=== PATIENT | male | born 1930 | race Hispanic/Latino ===

== ENCOUNTER 2017-05-13 07:44 | Emergency (ER) | payer MEDICARE ==
[2017-05-13 07:45] VITALS: BMI 26.5
[2017-05-13 09:06] VITALS: BP 150/65; PULSE 67; RESP 18; TEMP 97.8; O2SAT 98
--- NOTE | 2017-05-13 09:21 | ED PDOC ---
Arrival/HPI - General Chief Complaint: Lower Extremity Problem/Injury Time Seen by Provider: 05/13/17 07:54 - History of Present Illness Narrative History of Present Illness (Text): 05/13/17 09:18 86yo male with hx of b/l foot neuropathy with 1 day duration pain over the top of his R. foot. pt states pain quality similar to his previous neuropathy symptoms. Denies any trauma or injury. Denies loss of sensation or numbness. States pain feels like burning. No f/c, no other complaints. Past Medical History - Provider Review Nursing Documentation Reviewed: Yes - Infectious Disease Hx of Infectious Diseases: None - Tetanus Immunization Tetanus Immunization: Unknown - Cardiac Hx Cardiac Disorders: Yes Hx Angina: No Hx Cardiac Arrhythmia: No Hx Circulatory Problems: No Hx Congestive Heart Failure: No Hx Heart Murmur: No Hx Heart Transplant: No Hx Hypertension: Yes Hx Internal Defibrillator: No Hx Mitral Valve Prolapse: No Hx Pacemaker: No Hx Peripheral Edema: No Hx Peripheral Vascular Disease: No - Pulmonary Hx Respiratory Disorders: No - Neurological Hx Neurological Disorder: Yes (neuropathy feet legs arms hands) - HEENT Hx HEENT Disorder: Yes (eyeglasses) Hx Cataracts: Yes (b/l sx) - Renal Hx Renal Disorder: No - Endocrine/Metabolic Hx Endocrine Disorders: No - Hematological/Oncological Hx Blood Disorders: Yes (elevated wbc) Other/Comment: thrombocytopenia with pulmonary nodules, tx by dr bautista around 7 yrs as per pt - Integumentary Hx Dermatological Disorder: Yes Other/Comment: growth to r ear - Musculoskeletal/Rheumatological Hx Musculoskeletal Disorders: No Hx Falls: No - Gastrointestinal Hx Gastrointestinal Disorders: Yes Hx Diverticulitis: (pt denies) Hx Gastroesophageal Reflux: Yes - Genitourinary/Gynecological Hx Genitourinary Disorders: No - Psychiatric Hx Psychophysiologic Disorder: No Hx Depression: No Hx Emotional Abuse: No Hx Physical Abuse: No Hx Substance Use: No - Surgical History Hx Appendectomy: Yes Hx Cardiac Catheterization: Yes (08/02/2013 dr hawley) Hx Coronary Stent: No (pt denies) - Anesthesia Hx Anesthesia: Yes Hx Anesthesia Reactions: No Hx Malignant Hyperthermia: No - Suicidal Assessment Feels Threatened In Home Enviroment: No Family/Social History Family/Social History: Unknown Family HX Smoking Status: Never Smoked Hx Alcohol Use: No Hx Substance Use: No Hx Substance Use Treatment: No Allergies/Home Meds Allergies/Adverse Reactions: Allergies No Known Allergies Allergy (Verified 05/13/17 07:52) Home Medications: Home Meds Medication Instructions Recorded Confirmed Aspirin [Aspir 81] 81 mg PO DAILY 10/10/13 05/13/17 Enalapril Maleate 10 mg PO DAILY 10/10/13 05/13/17 Atorvastatin [Lipitor] 20 mg PO DAILY 06/21/14 05/13/17 Cholecalciferol (Vitamin D3) 50,000 iu PO .Friday04/17/16 05/13/17 [Vitamin D3] Folic Acid 1 mg PO DAILY 04/17/16 05/13/17 Gabapentin [Neurontin] 1,200 mg PO TID 04/17/16 05/13/17 Hydroxyurea [Hydrea] 500 mg PO DAILY 04/17/16 05/13/17 [place]-3 Fatty Acids/Fish Oil [Fish 1 each PO DAILY 04/17/16 05/13/17 Oil 1,000 mg Softgel] Omeprazole 40 mg PO DAILY 04/17/16 05/13/17 Review of Systems - Physician Review All systems were reviewed & negative as marked: Yes - Review of Systems Respiratory: absent: SOB, Cough Cardiovascular: absent: Chest Pain, Palpitations Gastrointestinal: absent: Abdominal Pain, Nausea, Vomiting Musculoskeletal: Other (foot pain, R.) Physical Exam Vital Signs Reviewed: Yes Vital Signs Temp Pulse Resp BP Pulse Ox 05/13/17 09:05 97.8 F 67 18 150/65 98 05/13/17 07:48 97.6 F 71 16 132/75 96 Temperature: Afebrile Blood Pressure: Normal Pulse: Regular Respiratory Rate: Normal Appearance: Positive for: Well-Appearing Pain Distress: None Mental Status: Positive for: Alert and Oriented X 3 - Systems Exam Lower Extremity: Present: Normal Inspection (R. foot), NORMAL PULSES, Normal ROM , Neurovascularly Intact, Capillary Refill < 2 s, Other. No: Edema, CALF TENDERNESS, Cyanosis, Natalia's Sign, Swelling, Erythema, Deformity, Temperature Abnormalties Neurological: Present: GCS=15, CN II-XII Intact, Speech Normal, Gait Normal, Other (no focal neurological deficits) Medical Decision Making ED Course and Treatment: 05/13/17 09:23 86yo male with hx of neuropathy, with R. foot pain pt with steady gait on exam, pt has +pulses, no warmth/erythema/streaking, no swelling dw US tech, states no DVT pt states he has a f/u appt with Dr. José pt states he feels comfortable being dc'd home with outpatient f/u Pt states he understands to return to the ER right away for new or worsening symptoms or for inability to f/u with PMD or specialist as instructed. Patient states that he fully agrees with and understands discharge instructions. States that he agrees with the plan and disposition. Verbalized and repeated discharge instructions and plan. I have given the patient opportunity to ask any additional questions. - RAD Interpretation Radiology Orders: 05/13/17 08:15 DUPLEX LOWER EXTRM VEIN RIGHT [US] Stat Disposition/Present on Arrival - Present on Arrival Any Indicators Present on Arrival: No History of DVT/PE: No History of Uncontrolled Diabetes: No Urinary Catheter: No History of Decub. Ulcer: No History Surgical Site Infection Following: None - Disposition Have Diagnosis and Disposition been Completed?: Yes Diagnosis: Foot pain Disposition: HOME/ ROUTINE Disposition Time: 09:28 Patient Plan: Discharge Condition: GOOD Discharge Instructions (ExitCare): Arthralgia (ED) Additional Instructions: PLEASE RETURN TO THE EMERGENCY DEPARTMENT FOR NEW OR WORSENING SYMPTOMS. RETURN RIGHT AWAY IF YOU CANNOT FOLLOW UP WITH YOUR PRIMARY CARE DOCTOR, CLINIC, OR SPECIALIST IN 1-2 DAYS. Referrals: Jak José MD [Staff Provider] - Follow up with primary Forms: [employer] ([place])
--- NOTE | 2017-05-13 18:32 | US ---
PROCEDURE: Right lower extremity venous US HISTORY: Leg pain and swelling. Evaluate for DVT. PHYSICIAN(S): Aramis Richardson M.D. TECHNIQUE: Duplex sonography and color-flow Doppler with graded compression were used to evaluate the deep venous system of the right lower extremity. FINDINGS: The visualized deep venous system of the right lower extremity is sonographically normal and compressible. Normal waveforms and augmentation are seen. There is no sonographic evidence for deep venous thrombosis in the visualized segments of the right lower extremity. IMPRESSION: 1. No sonographic evidence for deep venous thrombosis in the visualized segments of the right lower extremity.
== END 2017-05-13 09:44 | disposition home or self-care (01) ==
LOC: ED 07:44
DX: M79.671 Pain in right foot (principal); I10 Essential (primary) hypertension; G62.9 Polyneuropathy, unspecified

== ENCOUNTER 2017-05-31 06:08 | Emergency (ER) | payer MEDICARE ==
[2017-05-31 06:08] VITALS: BMI 26.5
[2017-05-31 07:06] LABS: ALB/GLOB RATIO 1.5 (1.1-1.8); ALKALINE PHOSPHATASE 57 U/L (38-133); ALT/SGPT 44 U/L (7-56); AMYLASE 64 U/L (35-125); AST/SGOT 64 U/L (15-59); BILIRUBIN,TOTAL 0.3 mg/dL (0.2-1.3); BLOOD UREA NITROGEN 28 mg/dL (7-21); CALCIUM 8.9 mg/dL (8.4-10.5); CARBON DIOXIDE 26 mmol/L (21-33); CHLORIDE 107 mmol/L (98-107); GFR AFRICAN-AMERICAN 58; GLUCOSE,RANDOM 101 mg/dL (70-110); LIPASE 58 U/L (23-300); POTASSIUM 4.4 mmol/L (3.6-5.0); SODIUM 143 mmol/L (132-148); TOTAL PROTEIN 6.9 g/dL (5.8-8.3)
[2017-05-31 07:07] LABS: HEMATOCRIT 41.1 % (42.0-52.0); WHITE BLOOD COUNT 7.2 10^3/ul (4.5-11.0)
[2017-05-31 07:08] LABS: GRAN % 74.3 % (50.0-68.0); MEAN CELL VOLUME 107.6 fl (80.0-105.0); MEAN CORPUSCULAR HEMOGLOBIN 35.3 pg (25.0-35.0); MEAN CORPUSCULAR HGB CONC 32.8 g/dl (31.0-37.0); MEAN PLATELET VOLUME 8.9 fl (7.0-11.0); RED CELL DISTRIBUTION WIDTH 13.2 % (11.5-14.5)
[2017-05-31 07:09] LABS: BASO # 0.05 K/mm3 (0.0-2.0); BASO % 0.7 % (0.0-3.0); EOS # 0.2 (0.0-0.7); EOS % 2.4 % (1.5-5.0); GRAN # 5.36 (1.4-6.5); LYMPH # 0.9 (1.2-3.4); LYMPH % 12.2 % (22.0-35.0); MONO # 0.8 (0.1-0.6); MONO % 10.4 % (1.0-6.0)
[2017-05-31 07:19] LABS: TROPONIN I < 0.01 ng/mL
[2017-05-31] MEDS ORDERED: Famotidine 20mg/50ml 20 MG/50 ML BAG IVPB STA (07:23)
--- NOTE | 2017-05-31 07:26 | ED PDOC ---
Arrival/HPI - General Chief Complaint: Abdominal Pain Time Seen by Provider: 05/31/17 07:11 Historian: Patient - History of Present Illness Narrative History of Present Illness (Text): 05/31/17 07:22 A 86 year old male, whose past medical history includes hypertension and neuropathy, presents to the emergency department complaining of lower abdominal pain since yesterday evening. Patient describes the pain as a burning sensation and denies any radiating pain. He reports his last bowel movement was yesterday afternoon. Patient denies any fever, chills, nausea, vomiting, diarrhea, urinary symptoms, hematochezia, back pain, chest pain, shortness of breath or any other complaints. No history of abdominal surgeries. Patient is currently seeing a nurse practitioner in Dr. Rayo's office. Time/Duration: Other (Yesterday evening) Symptom Course: Unchanged Quality: Other Context: Home Past Medical History - Provider Review Nursing Documentation Reviewed: Yes - Infectious Disease Hx of Infectious Diseases: None - Tetanus Immunization Tetanus Immunization: Unknown - Cardiac Hx Cardiac Disorders: Yes Hx Angina: No Hx Cardiac Arrhythmia: No Hx Circulatory Problems: No Hx Congestive Heart Failure: No Hx Heart Murmur: No Hx Heart Transplant: No Hx Hypertension: Yes Hx Internal Defibrillator: No Hx Mitral Valve Prolapse: No Hx Pacemaker: No Hx Peripheral Edema: No Hx Peripheral Vascular Disease: No - Pulmonary Hx Respiratory Disorders: No - Neurological Hx Neurological Disorder: Yes (neuropathy feet legs arms hands) - HEENT Hx HEENT Disorder: Yes (eyeglasses) Hx Cataracts: Yes (b/l sx) - Renal Hx Renal Disorder: No - Endocrine/Metabolic Hx Endocrine Disorders: No - Hematological/Oncological Hx Blood Disorders: Yes (elevated wbc) Other/Comment: thrombocytopenia with pulmonary nodules, tx by dr bautista around 7 yrs as per pt - Integumentary Hx Dermatological Disorder: Yes Other/Comment: growth to r ear - Musculoskeletal/Rheumatological Hx Musculoskeletal Disorders: No Hx Falls: No - Gastrointestinal Hx Gastrointestinal Disorders: Yes Hx Diverticulitis: (pt denies) Hx Gastroesophageal Reflux: Yes - Genitourinary/Gynecological Hx Genitourinary Disorders: No - Psychiatric Hx Psychophysiologic Disorder: No Hx Depression: No Hx Emotional Abuse: No Hx Physical Abuse: No Hx Substance Use: No - Surgical History Hx Appendectomy: Yes Hx Cardiac Catheterization: Yes (08/02/2013 dr hawley) Hx Coronary Stent: No (pt denies) - Anesthesia Hx Anesthesia: Yes Hx Anesthesia Reactions: No Hx Malignant Hyperthermia: No - Suicidal Assessment Feels Threatened In Home Enviroment: No Family/Social History - Physician Review Nursing Documentation Reviewed: Yes Family/Social History: No Known Family HX Smoking Status: Never Smoked Hx Alcohol Use: No Hx Substance Use: No Hx Substance Use Treatment: No Allergies/Home Meds Allergies/Adverse Reactions: Allergies No Known Allergies Allergy (Verified 05/13/17 07:52) Home Medications: Home Meds Medication Instructions Recorded Confirmed Aspirin [Aspir 81] 81 mg PO DAILY 10/10/13 05/31/17 Enalapril Maleate 5 mg PO DAILY 10/10/13 05/31/17 Atorvastatin [Lipitor] 20 mg PO DAILY 06/21/14 05/31/17 Cholecalciferol (Vitamin D3) 50,000 iu PO .Friday04/17/16 05/31/17 [Vitamin D3] Folic Acid 1 mg PO DAILY 04/17/16 05/31/17 Gabapentin [Neurontin] 1,200 mg PO TID 04/17/16 05/31/17 Hydroxyurea [Hydrea] 500 mg PO DAILY 04/17/16 05/31/17 [place]-3 Fatty Acids/Fish Oil [Fish 1 each PO DAILY 04/17/16 05/31/17 Oil 1,000 mg Softgel] Omeprazole 40 mg PO DAILY 04/17/16 05/31/17 Review of Systems - Physician Review All systems were reviewed & negative as marked: Yes - Review of Systems Constitutional: absent: Fevers, Night Sweats Respiratory: absent: SOB Cardiovascular: absent: Chest Pain Gastrointestinal: Abdominal Pain (lower). absent: Diarrhea, Nausea, Vomiting, Hematochezia Genitourinary Male: absent: Dysuria, Frequency, Hematuria, Urinary Output Changes Musculoskeletal: absent: Back Pain Physical Exam Vital Signs Reviewed: Yes Vital Signs Temp Pulse Resp BP Pulse Ox 05/31/17 09:49 98.1 F 81 20 139/62 97 05/31/17 09:22 70 16 158/88 H 96 05/31/17 07:29 70 18 134/49 L 95 05/31/17 06:33 97.5 F L 81 20 163/83 H 98 Temperature: Afebrile Blood Pressure: Hypertensive Pulse: Regular Respiratory Rate: Normal Appearance: Positive for: Well-Appearing, Non-Toxic, Comfortable Pain Distress: None Mental Status: Positive for: Alert and Oriented X 3 - Systems Exam Head: Present: Atraumatic, Normocephalic Pupils: Present: PERRL Extroacular Muscles: Present: EOMI Conjunctiva: Present: Normal Mouth: Present: Moist Mucous Membranes Pharnyx: No: ERYTHEMA, EXUDATE, TONSILS ENLARGED Neck: Present: Normal Range of Motion Respiratory/Chest: Present: Clear to Auscultation, Good Air Exchange. No: Respiratory Distress, Accessory Muscle Use Cardiovascular: Present: Regular Rate and Rhythm, Normal S1, S2. No: Murmurs Abdomen: Present: Tenderness (Lower abdominal tenderness to palpation), Normal Bowel Sounds, Guarding. No: Distention, Peritoneal Signs, Rebound Back: Present: Normal Inspection Upper Extremity: Present: Normal Inspection. No: Cyanosis, Edema Lower Extremity: Present: Normal Inspection. No: Edema Neurological: Present: GCS=15, CN II-XII Intact, Speech Normal Skin: Present: Warm, Dry, Normal Color. No: Rashes Psychiatric: Present: Alert, Oriented x 3, Normal Insight, Normal Concentration Medical Decision Making ED Course and Treatment: 05/31/17 07:22 Impression: A 86 year old male with lower abdominal pain. On exam, tenderness to palpation with guarding. Differential Diagnosis included but are not limited to: Diverticulitis vs. Colitis vs. Appendicitis Plan: -- Abdomen and pelvis CT -- EKG -- Labs -- Urinalysis -- Toradol and Pepcid -- Reassess and disposition Progress Notes: EKG shows NSR at [address]-segment elevations, normal intervals, normal axis. Interpreted by me. Report Date : 05/31/2017 09:14:15 PROCEDURE: CT Abdomen and Pelvis with contrast Dictator : Aramis See MD IMPRESSION: No acute abnormality of bowel. Thickening of the gastric wall is most likely secondary to lack of distension. Please correlate for possible gastritis. No other acute abnormality. 05/31/17 09:37 On re-evaluation, patient feels better and is in no acute distress. On exam, no abdominal tenderness. Patient is tolerating PO intake. I have discussed the results and plan with the patient, who expresses understanding. Patient in agreement with plan to be discharged home. Patient is stable for discharge. Patient was instructed to follow up with physician or return if symptoms worsen or new concerning symptoms arise. - Lab Interpretations Lab Results: 05/31/17 06:40 05/31/17 06:40 Lab Results 05/31/17 07:36: Urine Color Yellow, Urine Appearance Clear, Urine pH 6.0, Ur Specific [place] 1.025, Urine Protein Trace H, Urine Glucose (UA) Negative, Urine Ketones Negative, Urine Blood Trace-lysed H, Urine Nitrate Negative, Urine Bilirubin Negative, Urine Urobilinogen 0.2, Ur Leukocyte Esterase Negative , Urine RBC 0 - 2, Urine WBC 0 - 2, Ur Epithelial Cells 0 - 2, Urine Bacteria Few 05/31/17 06:40: WBC 7.2, RBC 3.82, Hgb 13.5 L, Hct 41.1 L, MCV 107.6 H, MCH 35.3 H, MCHC 32.8, RDW 13.2, Plt Count 332, MPV 8.9, Gran % 74.3 H, Lymph % ( Auto) 12.2 L, [place] % (Auto) 10.4 H, Eos % (Auto) 2.4, Baso % (Auto) 0.7, Gran # 5.36, Lymph # 0.9 L, [place] # 0.8 H, Eos # 0.2, Baso # 0.05 05/31/17 06:40: Sodium 143, Potassium 4.4, Chloride 107, Carbon Dioxide 26, Anion Gap 14, BUN 28 H, Creatinine 1.4, Est GFR ( Amer) 58, Est GFR (Non- Af Amer) 48, Random Glucose 101, Calcium 8.9, Total Bilirubin 0.3, AST 64 H, ALT 44, Alkaline Phosphatase 57, Lactate Dehydrogenase 711 H, Total Creatine Kinase 626 H, CK-MB (CK-2) 16.2 H, CK-MB (CK-2) % 2.6, Troponin I < 0.01 D, Total Protein 6.9, Albumin 4.1, Globulin 2.8, Albumin/Globulin Ratio 1.5, Amylase 64, Lipase 58 I have reviewed the lab results: Yes - RAD Interpretation Radiology Orders: 05/31/17 07:22 ABD & PELVIS IV CONTRAST ONLY [CT] Stat - Medication Orders Current Medication Orders: Discontinued Medications Famotidine (Pepcid 20mg/50ml Premix) 20 mg in 50 mls @ 100 mls/hr IVPB STAT STA Stop: 05/31/17 07:52 Last Admin: 05/31/17 07:40 Dose: 100 mls/hr Sodium Chloride (Sodium Chloride 0.9%) 500 mls @ 999 mls/hr IV .Q31M STA Stop: 05/31/17 08:02 Last Admin: 05/31/17 07:41 Dose: 999 mls/hr Ketorolac Tromethamine (Toradol) 30 mg IVP STAT STA Stop: 05/31/17 07:24 Last Admin: 05/31/17 07:41 Dose: 30 mg - Scribe Statement The provider has reviewed the documentation as recorded by the Parris Fernández Provider Scribe Attestation: All medical record entries made by the Scribe were at my direction and personally dictated by me. I have reviewed the chart and agree that the record accurately reflects my personal performance of the history, physical exam, medical decision making, and the department course for this patient. I have also personally directed, reviewed, and agree with the discharge instructions and disposition. Disposition/Present on Arrival - Present on Arrival Any Indicators Present on Arrival: No History of DVT/PE: No History of Uncontrolled Diabetes: No Urinary Catheter: No History of Decub. Ulcer: No History Surgical Site Infection Following: None - Disposition Have Diagnosis and Disposition been Completed?: Yes Diagnosis: Abdominal pain Disposition: HOME/ ROUTINE Disposition Time: 09:37 Patient Plan: Discharge Condition: IMPROVED Discharge Instructions (ExitCare): Acute Abdominal Pain (ED) Additional Instructions: Mr Culver, thank you for letting us take care of you today. Your provider was Dr. Novoa. You were treated for Abdominal Pain. The emergency medical care you received today was directed at your acute symptoms. If you were prescribed any medication, please fill it and take as directed. It may take several days for your symptoms to resolve. Return to the Emergency Department if your symptoms worsen, do not improve, or if you have any other problems. Please contact your doctor or call one of the physicians/clinics you have been referred to that are listed on the Patient Visit Information form that is included in your discharge packet. Bring any paperwork you were given at discharge with you along with any medications you are taking to your follow up visit. Our treatment cannot replace ongoing medical care by a primary care provider (PCP) outside of the emergency department. Thank you for allowing the [facility] team to be part of your care today. If you had an X-Ray or CT scan: A Radiologist will review the ED reading if any change in treatment is needed we will contact you. If you had a blood, urine, or wound culture: It will take several days for the results, if any change in treatment is needed we will contact you. If you had an STI test: It will take 48 hours for the results. Please call after 1 week if you have not heard back. Prescriptions: Ibuprofen [Motrin] 600 mg PO Q6 PRN #30 tab PRN Reason: Pain, Moderate (4-7) Ranitidine HCl [Zantac] 150 mg PO BID PRN #30 tablet PRN Reason: Pain, Mild (1-3) Referrals: Girma GARCIA,Claude Owens MD [Primary Care Provider] - Follow up with primary Forms: [employer] ([place])
[2017-05-31] MEDS ORDERED: Sodium Chloride 0.9% 500 ML IV STA (07:32)
[2017-05-31 07:43] LABS: URINE BILIRUBIN NEGATIVE (NEGATIVE); URINE BLOOD TRACE-LYSED (NEGATIVE); URINE GLUCOSE (UA) NEGATIVE (NEGATIVE); URINE KETONE NEGATIVE (NEGATIVE); URINE LEUKOCYTE ESTERASE NEGATIVE Leu/uL (NEGATIVE); URINE PROTEIN TRACE mg/dL (<30 mg/dL); URINE UROBILINOGEN 0.2 E.U./dL (<1 E.U./dL)
[2017-05-31 07:50] LABS: URINE APPEARANCE CLEAR (CLEAR); URINE COLOR YELLOW (YELLOW)
[2017-05-31 07:58] LABS: URINE BACTERIA FEW (NEG); URINE EPITHELIAL CELLS 0 - 2 /hpf (0-5); URINE RBC 0 - 2 /hpf (0-2); URINE WBC 0 - 2 /hpf (0-6)
[2017-05-31] MEDS ORDERED: Iohexol 350 MG/100 ML VIAL ONE (08:00)
--- NOTE | 2017-05-31 09:15 | CT ---
PROCEDURE: CT Abdomen and Pelvis with contrast HISTORY: diverticulitis vs appy COMPARISON: 04/20/2015 TECHNIQUE: Contrast dose: 100 mL Omnipaque 350 Radiation dose: Total exam DLP = 552.03 mGy-cm. This CT exam was performed using one or more of the following dose reduction techniques: Automated exposure control, adjustment of the mA and/or kV according to patient size, and/or use of iterative reconstruction technique. FINDINGS: LOWER THORAX: Unremarkable. LIVER: Unremarkable. No gross lesion or ductal dilatation. GALLBLADDER AND BILE DUCTS: Unremarkable. PANCREAS: Unremarkable. No gross lesion or ductal dilatation. SPLEEN: Unremarkable. ADRENALS: Unremarkable. No mass. KIDNEYS AND URETERS: Multiple bilateral renal cysts unchanged from prior examination. Largest cyst is in the upper pole left kidney, 6.4 cm. This measures 8 Hounsfield units. Largest right renal cyst is an exophytic lower pole cyst measuring 2.8 cm. Multiple additional cysts bilaterally. No hydronephrosis. Two punctate nonobstructing upper pole left renal calculi, 2 mm each. No change from prior. VASCULATURE: Unremarkable. No aortic aneurysm. BOWEL: Diffuse mural thickening of the stomach, likely due to lack of distension. No abnormal bowel loops. No bowel obstruction. No evidence of diverticulitis. APPENDIX: Not identified. No secondary findings to suggest acute appendicitis, however. PERITONEUM: Unremarkable. No free fluid. No free air. LYMPH NODES: Unremarkable. No enlarged lymph nodes. BLADDER: Unremarkable. REPRODUCTIVE: Unremarkable prostate BONES: Diffuse lumbar degenerative disc disease. No fracture. OTHER FINDINGS: None. IMPRESSION: No acute abnormality of bowel. Thickening of the gastric wall is most likely secondary to lack of distension. Please correlate for possible gastritis. No other acute abnormality.
[2017-05-31 09:51] VITALS: BP 139/62; PULSE 81; RESP 20; TEMP 98.1; O2SAT 97
--- NOTE | 2017-05-31 13:23 | CARD ---
APPROVED REPORT EKG Measurement Heart [id number] NM [id number] <Conclusion> Normal sinus rhythm Normal ECG
== END 2017-05-31 09:59 | disposition home or self-care (01) ==
LOC: ED 06:08
DX: R10.30 Lower abdominal pain, unspecified (principal)
CPT/HCPCS: 74177; 80053; 81001; 82150; 82550; 82553; 83615; 83690; 84484; 85025; 93005; 96361; 96365; 96375; 99284; J1885; J7040; Q9967

== ENCOUNTER 2018-01-06 13:39 | Observation (INO) | payer MEDICARE ==
[2018-01-06 13:40] VITALS: BMI 26.9
[2018-01-06] MEDS ORDERED: Sodium Chloride 0.9% 1,000 ML IV SCH (15:00)
--- NOTE | 2018-01-06 15:16 | ED PDOC ---
Arrival/HPI - General Chief Complaint: Weakness/Neurological Deficit Time Seen by Provider: 01/06/18 14:02 Historian: Patient, Family - History of Present Illness Narrative History of Present Illness (Text): you were treated in the ED today for having cough, generalized weakness/fatigue with dizziness/lightheadedness without room spinning and otherwise without any nausea/vomiting/headache/difficulty breathing/chest pain/abdomen pain/numbness/ tingling/loss of limb function/pain with urination. 01/06/18 15:13 Time/Duration: 24 hours Symptom Onset: Gradual Symptom Course: Unchanged Quality: Other (no pain) Activities at Onset: Rest Context: Sitting Past Medical History - Provider Review Nursing Documentation Reviewed: Yes - Travel History Have you recently traveled outside [place] w/in the past 3 mons?: No - Infectious Disease Hx of Infectious Diseases: None - Tetanus Immunization Tetanus Immunization: Unknown - Cardiac Hx Hypertension: Yes - Pulmonary Hx Respiratory Disorders: No - Neurological Hx Neurological Disorder: Yes (neuropathy feet legs arms hands) - HEENT Hx HEENT Disorder: Yes (eyeglasses) Hx Cataracts: Yes (b/l sx) - Renal Hx Renal Disorder: No - Endocrine/Metabolic Hx Endocrine Disorders: No - Hematological/Oncological Hx Blood Disorders: Yes (elevated wbc) Other/Comment: thrombocytopenia with pulmonary nodules, tx by dr bautista around 7 yrs as per pt - Integumentary Hx Dermatological Disorder: Yes Other/Comment: growth to r ear - Musculoskeletal/Rheumatological Hx Musculoskeletal Disorders: No Hx Falls: No - Gastrointestinal Hx Gastrointestinal Disorders: Yes Hx Diverticulitis: (pt denies) Hx Gastroesophageal Reflux: Yes - Genitourinary/Gynecological Hx Genitourinary Disorders: No - Psychiatric Hx Psychophysiologic Disorder: No Hx Depression: No Hx Emotional Abuse: No Hx Physical Abuse: No Hx Substance Use: No - Surgical History Hx Appendectomy: Yes Hx Cardiac Catheterization: Yes (08/02/2013 dr hawley) Hx Coronary Stent: No (pt denies) - Anesthesia Hx Anesthesia: Yes Hx Anesthesia Reactions: No Hx Malignant Hyperthermia: No - Suicidal Assessment Feels Threatened In Home Enviroment: No Family/Social History - Physician Review Nursing Documentation Reviewed: Yes Family/Social History: No Known Family HX Smoking Status: Never Smoked Hx Alcohol Use: No Hx Substance Use: No Hx Substance Use Treatment: No Allergies/Home Meds Allergies/Adverse Reactions: Allergies No Known Allergies Allergy (Verified 05/13/17 07:52) Home Medications: Home Meds Medication Instructions Recorded Confirmed Aspirin [Aspir 81] 81 mg PO DAILY 10/10/13 01/06/18 Enalapril Maleate 10 mg PO DAILY 10/10/13 01/06/18 Atorvastatin [Lipitor] 20 mg PO DAILY 06/21/14 01/06/18 Folic Acid 1 mg PO DAILY 04/17/16 01/06/18 Gabapentin [Neurontin] 1,200 mg PO TID 04/17/16 01/06/18 Hydroxyurea [Hydrea] 500 mg PO DAILY 04/17/16 01/06/18 Omeprazole 40 mg PO DAILY 04/17/16 01/06/18 Ergocalciferol (Vitamin D2) 50,000 unit PO QWK 01/06/18 01/06/18 [Vitamin D2] [place]-3 Fatty Acids/Fish Oil [Fish 1,000 mg PO DAILY 01/06/18 01/06/18 Oil 1,000 mg Capsule] Review of Systems - Review of Systems Constitutional: Fatigue Eyes: Normal ENT: Normal Respiratory: Cough Cardiovascular: Normal Gastrointestinal: Normal Genitourinary Male: Normal Musculoskeletal: Normal Skin: Normal Neurological: Dizziness Endocrine: Normal Hemo/Lymphatic: Normal Psychiatric: Normal Physical Exam Vital Signs Reviewed: Yes Vital Signs Temp Pulse Resp BP Pulse Ox 01/06/18 17:16 89 18 145/71 98 01/06/18 15:49 97 H 18 148/79 98 01/06/18 13:53 98.6 F 102 H 20 154/89 H 94 L Temperature: Afebrile Blood Pressure: Hypertensive Pulse: Tachycardic Respiratory Rate: Normal Appearance: Positive for: Well-Appearing, Non-Toxic, Comfortable Pain Distress: None Mental Status: Positive for: Alert and Oriented X 3 - Systems Exam Head: Present: Atraumatic, Normocephalic Pupils: Present: PERRL Extroacular Muscles: Present: EOMI Conjunctiva: Present: Normal Ears: Present: Normal Mouth: Present: Moist Mucous Membranes Pharnyx: Present: Normal Nose (External): Present: Atraumatic Nose (Internal): Present: Normal Inspection Neck: Present: Normal Range of Motion Respiratory/Chest: Present: Clear to Auscultation, Good Air Exchange Cardiovascular: Present: Regular Rate and Rhythm Abdomen: No: Tenderness, Distention, Normal Bowel Sounds, Peritoneal Signs, Rebound, Guarding, McBurney's Point Tender, Rovsing's Sign Present, Hernias, Feeding Tubes, Ostomy Tubes, Mass/Organomegaly, Scars, Other Back: Present: Normal Inspection Upper Extremity: Present: Normal Inspection Lower Extremity: Present: Normal Inspection Neurological: Present: GCS=15, CN II-XII Intact, Speech Normal, Motor Func Grossly Intact Skin: Present: Warm, Normal Color Psychiatric: Present: Alert, Oriented x 3, Normal Insight, Normal Concentration Medical Decision Making ED Course and Treatment: you were treated in the ED today for hx of thrombocytopenia, GERD, HTN, having cough, generalized weakness/fatigue with dizziness/lightheadedness without room spinning and otherwise without any nausea/vomiting/headache/difficulty breathing /chest pain/abdomen pain/numbness/tingling/loss of limb function/pain with urination. You were otherwise breathing easily, smiling and talking with your daughter easily, good strength/sensation, clear lungs, no abdomen tenderness, no fever temp 98.6, fast heart rate 102 , stable breathing rate 20, stable oxygen level 94% room air, elevated blood pressure 154/89 which we recommend repeat in 2-3 days primary care office to determine further treatment , you have blood tests no infection count 10, stable blood level hemoglobin 13/ platelets 232, stable chemistry, heart blood test negative less than 0.01, urine test____, influenza test negative, lactic acid negative 1.1, blood cultures pending, radiology ct head no acute findings, chest xray no acute findings, ECG sinus tachycardia, intravenous fluids, observation done in the ED without improvement, as patient and daughter stated having generalized weakness and unable to effectively ambulate. d/w Dr. Mercado and will admit for dehydration/generalized weakness. will give meclizine, gentle hydration. admit to med-surg. 01/06/18 17:23 Reassessment Condition: Re-examined, Improved - Lab Interpretations Lab Results: 01/06/18 15:20 01/06/18 15:20 Lab Results 01/06/18 16:30: Urine Color Yellow, Urine Appearance Sl cloudy, Urine pH 8.0, Ur Specific [place] 1.020, Urine Protein 30 H, Urine Glucose (UA) Negative, Urine Ketones Negative, Urine Blood Negative, Urine Nitrate Negative, Urine Bilirubin Negative, Urine Urobilinogen 1.0 H, Ur Leukocyte Esterase Negative, Urine RBC Negative, Urine WBC Negative 01/06/18 15:20: pO2 53, VBG pH 7.40, VBG pCO2 48.0, VBG HCO3 29.7 H, VBG Total CO2 31.2 H, VBG O2 Sat (Calc) 91.9 H, VBG Base Excess 4.0 H, VBG Potassium 4.3, Sodium 139.0, Chloride 105.0, Glucose 108, Lactate 1.1, FiO2 21.0, Venous Blood Potassium 4.3 01/06/18 15:20: Influenza Typ A,B (EIA) Negative for flu a/b 01/06/18 15:20: PT 13.6 H, INR 1.19 H, APTT 32.1 01/06/18 15:20: Sodium 142, Chloride 105, Potassium 4.4, Carbon Dioxide 28, Anion Gap 14, BUN 21, Creatinine 1.4, Est GFR ( Amer) 58, Est GFR (Non- Af Amer) 48, Random Glucose 99, Calcium 9.2, Magnesium 1.8, Total Bilirubin 0.5 , AST 50, ALT 39, Alkaline Phosphatase 55, Lactate Dehydrogenase 688, Total Creatine Kinase 292 H, CK-MB (CK-2) 4.6 H, CK-MB (CK-2) % Cancelled, Troponin I < 0.01, Total Protein 7.2, Albumin 4.2, Globulin 3.0, Albumin/Globulin Ratio 1.4 01/06/18 15:20: WBC 10.3 D, RBC 3.73, Hgb 13.5 L, Hct 40.2 L, MCV 107.8 H, MCH 36.2 H, MCHC 33.6, RDW 13.4, Plt Count 232, MPV 9.0, Gran % 84.6 H, Lymph % ( Auto) 5.5 L, Cedar % (Auto) 9.2 H, Eos % (Auto) 0.5 L, Baso % (Auto) 0.2, Gran # 8.70 H, Lymph # (Auto) 0.6 L, Cedar # (Auto) 1.0 H, Eos # (Auto) 0.1, Baso # ( Auto) 0.02 I have reviewed the lab results: Yes - RAD Interpretation Radiology Orders: 01/06/18 14:53 CHEST ONE VIEW [RAD] Stat 01/06/18 14:54 HEAD W/O CONTRAST [CT] Stat Manager Application: Radiologist (ct head no acute findings) - EKG Interpretation Interpreted by ED Physician: Yes (sinus tachycardia) Type: 12 lead EKG - Medication Orders Current Medication Orders: Sodium Chloride (Sodium Chloride 0.9%) 1,000 mls @ 100 mls/hr IV .Q10H SAMI Last Admin: 01/06/18 15:33 Dose: 100 mls/hr eMAR Start Stop Document 01/06/18 15:33 HI (Rec: 01/06/18 15:34 HI [id number]) Intravenous Solution Start Date 01/06/18 Start Time 15:34 Sodium Chloride (Sodium Chloride 0.9%) 1,000 mls @ 75 mls/hr IV .[id number] SAMI Meclizine HCl (Antivert) 12.5 mg PO STAT STA Stop: 01/06/18 17:21 NIHSS Stroke Scale 3 - Date/Time Evaluation Performed Date Performed: 01/06/18 - How Severe is the Stroke Level of Consciousness: 0=Alert LOC to Questions: 0=Both comments correct LOC to commands: 0=Obeys both correctly Best Gaze: 0=Normal Visual: 0=No visual loss Facial: 0=Normal Motor Arm - Left: 0=No drift Motor Arm - Right: 0=No drift Motor Leg - Left: 0=No drift Motor Leg - Right: 0=No drift Limb Ataxia: 0=Absent Sensory: 0=Normal Best Language: 0=No aphasia Dysarthia: 0=Normal articulation Extinction & Inattention (Neglect): 0=Normal, no object Score: 0 Disposition/Present on Arrival - Present on Arrival Any Indicators Present on Arrival: No History of DVT/PE: No History of Uncontrolled Diabetes: No Urinary Catheter: No History of Decub. Ulcer: No History Surgical Site Infection Following: None - Disposition Have Diagnosis and Disposition been Completed?: No Diagnosis: Dehydration, Generalized weakness Disposition: HOSPITALIZED Disposition Time: 17:26 Patient Plan: Admission Condition: STABLE Discharge Instructions (ExitCare): Weakness (ED) Referrals: Girma GARCIA,Claude Owens MD [Primary Care Provider] - Follow up with primary Forms: McPhy (Tuvaluan)
[2018-01-06 15:46] LABS: VENOUS BLOOD GAS PO2 53 mm/Hg (30-55)
[2018-01-06 15:51] LABS: BASO # 0.02 K/mm3 (0.0-2.0); BASO % 0.2 % (0.0-3.0); EOS # 0.1 (0.0-0.7); EOS % 0.5 % (1.5-5.0); GRAN # 8.7 (1.4-6.5); GRAN % 84.6 % (50.0-68.0); HEMOGLOBIN 13.5 g/dL (14.0-18.0); LYMPH # 0.6 (1.2-3.4); LYMPH % 5.5 % (22.0-35.0); MEAN CELL VOLUME 107.8 fl (80.0-105.0); MEAN CORPUSCULAR HEMOGLOBIN 36.2 pg (25.0-35.0); MEAN CORPUSCULAR HGB CONC 33.6 g/dl (31.0-37.0); MONO % 9.2 % (1.0-6.0); RBC 3.73 10^6/uL (3.5-6.1); RED CELL DISTRIBUTION WIDTH 13.4 % (11.5-14.5); WHITE BLOOD COUNT 10.3 10^3/ul (4.5-11.0)
[2018-01-06 16:02] LABS: ALB/GLOB RATIO 1.4 (1.1-1.8); ALBUMIN 4.2 g/dL (3.0-4.8); ALT/SGPT 39 U/L (7-56); AST/SGOT 50 U/L (17-59); BLOOD UREA NITROGEN 21 mg/dL (7-21); CALCIUM 9.2 mg/dL (8.4-10.5); GFR AFRICAN-AMERICAN 58; GFR NON-AFRICAN AMERICAN 48
[2018-01-06 16:05] LABS: INR 1.19 (0.93-1.08); PARTIAL THROMBOPLASTIN TIME 32.1 Seconds (25.1-36.5); PROTHROMBIN TIME 13.6 SECONDS (9.4-12.5)
[2018-01-06 16:10] LABS: TROPONIN I < 0.01 ng/mL
--- NOTE | 2018-01-06 16:10 | CT ---
PROCEDURE: CT HEAD WITHOUT CONTRAST. HISTORY: 87yoM, dizziness COMPARISON: None available. TECHNIQUE: Axial computed tomography images were obtained through the head/brain without intravenous contrast. Radiation dose: Total exam DLP = 924 mGy-cm. This CT exam was performed using one or more of the following dose reduction techniques: Automated exposure control, adjustment of the mA and/or kV according to patient size, and/or use of iterative reconstruction technique. FINDINGS: HEMORRHAGE: No intracranial hemorrhage. BRAIN: No mass effect or edema. No atrophy or chronic microvascular ischemic changes. VENTRICLES: Unremarkable. No hydrocephalus. CALVARIUM: Unremarkable. PARANASAL SINUSES: Unremarkable as visualized. No significant inflammatory changes. MASTOID AIR CELLS: Unremarkable as visualized. No inflammatory changes. OTHER FINDINGS: None. IMPRESSION: No acute findings
[2018-01-06 16:19] LABS: CK-MB 4.6 ng/mL (0.0-3.6)
--- NOTE | 2018-01-06 16:52 | RAD ---
PROCEDURE: CHEST RADIOGRAPH, 1 VIEW HISTORY: 87yoM, with cough COMPARISON: 01/13/2017 FINDINGS: LUNGS: Clear. PLEURA: No pneumothorax or pleural fluid seen. CARDIOVASCULAR: Normal. OSSEOUS STRUCTURES: No significant abnormalities. VISUALIZED UPPER ABDOMEN: Normal. OTHER FINDINGS: None. IMPRESSION: No active disease.
[2018-01-06 17:10] LABS: URINE BILIRUBIN NEGATIVE (NEGATIVE); URINE BLOOD NEGATIVE (NEGATIVE); URINE GLUCOSE (UA) NEGATIVE (NEGATIVE); URINE LEUKOCYTE ESTERASE NEGATIVE Leu/uL (NEGATIVE); URINE PROTEIN 30 mg/dL (<30 mg/dL)
[2018-01-06 17:13] LABS: URINE APPEARANCE SL CLOUDY (CLEAR); URINE COLOR YELLOW (YELLOW)
[2018-01-06 17:23] LABS: URINE RBC NEGATIVE /hpf (0-2); URINE WBC NEGATIVE /hpf (0-6)
[2018-01-06] MEDS: Sodium Chloride 0.9% 1,000 ML IV SCH (19:13)
--- NOTE | 2018-01-06 20:43 | CARD ---
APPROVED REPORT EKG Measurement Heart [id number] ID [id number] <Conclusion> Sinus tachycardia Possible Left atrial enlargement Inferior infarct, age undetermined Abnormal ECG
--- NOTE | 2018-01-07 02:39 | HP ---
HISTORY OF PRESENT ILLNESS: The patient is an 87 year old man with a past medical history of CAD, hypertension and cervical radiculopathy who presented for evaluation of a 2 day history of dizziness and gait unsteadiness. The patient reports that approximately 2 weeks ago he had experienced URI type symptoms that resolved spontaneously after 5 days. Since resolution of those symptoms, he was in his usual state of health until the day prior to presentation to the ED when he developed dizziness and gait unsteadiness. The patient has previously been admitted for similar symptoms and as such his daughter brought him to the ED for further evaluation. The patient denies headaches, photophobia, diplopia, weakness, speech difficulty, odynophagia or dysphagia associated with the symptoms. Upon arrival to the ED he was noted to be afebrile and hemodynamically stable and workup was essentially unremarkable. A CT of the head demonstrated no acute pathology. Due to his persistent gait unsteadiness, he was [facility] for IV fluid hydration and continued Meclizine therapy. PAST MEDICAL HISTORY: As per HPI, also GERD and hyperlipidemia. PAST SURGICAL HISTORY: Bilateral cataract removal and appendectomy. ALLERGIES: NKDA. MEDICATIONS: Aspirin 81 mg p.o. daily, Enalapril 10 mg p.o. daily, Lipitor 20 mg p.o. daily, Omeprazole 40 mg p.o. daily, Folic acid 1 mg p.o. daily, Hydroxyurea 500 mg p.o. daily and Neurontin 1200 mg p.o. t.i.d. FAMILY HISTORY: Noncontributory. SOCIAL HISTORY: The patient reports occasional alcohol use but denies tobacco or illicit drug abuse. REVIEW OF SYSTEMS: A 14-point review of systems is negative except as per HPI. PHYSICAL EXAMINATION: VITAL SIGNS: Temperature 98.6, pulse 89, blood pressure 145/71, respiratory rate 18, and oxygen saturation 98% on room air. GENERAL: No apparent distress. HEENT: PERRL. EOMI. No scleral icterus. No conjunctival pallor. NECK: Supple with full range of motion. No JVD. No bruits. LUNGS: Clear to auscultation. CARDIOVASCULAR: Regular rate and rhythm. Normal S1 and S2. ABDOMEN: Normoactive bowel sounds. Soft, nontender, and nondistended. EXTREMITIES: No edema. NEUROLOGIC: Awake, alert, and oriented x3. No focal motor deficits. LABORATORY DATA: CBC reviewed and unremarkable. CMP reviewed and unremarkable. IMAGING STUDIES: CT head without contrast demonstrates no acute pathology. ASSESSMENT: The patient is an 87 year old man with a past medical history of CAD, hypertension, hyperlipidemia and cervical radiculopathy who presented for evaluation of a 1 day history of dizziness and gait unsteadiness who suffered from URI type symptoms approximately 2 weeks ago, with spontaneous resolution, and was admitted for intractable dizziness. PLAN: 1. Vertigo with etiology likely secondary to labyrinthitis. Continue Antivert 25 mg p.o. every 8 hours p.r.n. Continue gentle IV fluid hydration with normal saline of 75 mL per hour. Patient reports significant improvement in his symptoms since receiving one dose of Antivert and 1 liter of IV fluids. 2. CAD. Continue Aspirin 81 mg p.o. daily and Lipitor 20 mg p.o. daily. 3. Hypertension. Blood pressure controlled. Patient is on Enalapril 10 mg p.o. daily at home but this is not on formulary thus we will start Lisinopril 10 mg p.o. daily. 4. Hyperlipidemia. Continue Lipitor 20 mg p.o. daily. 5. Cervical radiculopathy. 6. GERD. Continue Protonix 40 mg p.o. daily. 7. Prophylaxis: Patient remains on Protonix thus GI prophylaxis is not indicated. DVT prophylaxis not indicated as he is ambulatory. CODE STATUS: Full code. Claude Rayo MD MTDAshley
[2018-01-07] MEDS: Sodium Chloride 0.9% 1,000 ML IV SCH (05:50)
[2018-01-07] MEDS ORDERED: Pantoprazole 40 mg EC Tab PO SCH (06:00)
[2018-01-07 06:47] LABS: BASO # 0.03 K/mm3 (0.0-2.0); BASO % 0.4 % (0.0-3.0); EOS # 0.1 (0.0-0.7); EOS % 1.1 % (1.5-5.0); GRAN # 6.01 (1.4-6.5); GRAN % 76.2 % (50.0-68.0); HEMOGLOBIN 13.1 g/dL (14.0-18.0); LYMPH # 0.9 (1.2-3.4); LYMPH % 10.9 % (22.0-35.0); MEAN CORPUSCULAR HEMOGLOBIN 35.2 pg (25.0-35.0); MEAN CORPUSCULAR HGB CONC 32.9 g/dl (31.0-37.0); MEAN PLATELET VOLUME 8.8 fl (7.0-11.0); MONO # 0.9 (0.1-0.6); MONO % 11.4 % (1.0-6.0); RBC 3.72 10^6/uL (3.5-6.1); RED CELL DISTRIBUTION WIDTH 13.3 % (11.5-14.5); WHITE BLOOD COUNT 7.9 10^3/ul (4.5-11.0)
[2018-01-07 06:58] LABS: ALB/GLOB RATIO 1.3 (1.1-1.8); ALT/SGPT 39 U/L (7-56); AST/SGOT 44 U/L (17-59); BLOOD UREA NITROGEN 22 mg/dL (7-21); CALCIUM 9.2 mg/dL (8.4-10.5); GFR AFRICAN-AMERICAN > 60; GFR NON-AFRICAN AMERICAN 52
[2018-01-07 08:21] VITALS: BP 147/81; PULSE 73; RESP 20; TEMP 98; O2SAT 96
--- NOTE | 2018-01-07 13:05 | PN ---
SUBJECTIVE: The patient was seen and examined at bedside [facility]. No acute events overnight. He remains afebrile, hemodynamically stable and reports resolution of his vertigo. This morning he feels well, offers no complaints and is looking forward to being discharged home. PHYSICAL EXAMINATION VITAL SIGNS: Temperature 98, pulse 73, blood pressure 147/81, respiratory rate 20, oxygen saturation 96% on room air. GENERAL: No apparent distress. HEENT: PERRL, EOMI. No scleral icterus. No conjunctival pallor. NECK: Supple with full range of motion. No JVD. No bruits. LUNGS: Clear to auscultation. CARDIOVASCULAR: Regular rate and rhythm. Normal S1 and S2. ABDOMEN: Normoactive bowel sounds. Soft, nontender and nondistended. EXTREMITIES: No edema. NEUROLOGIC: Awake, alert and oriented x3. No focal motor deficits. LABORATORY DATA: CBC reviewed and unremarkable. CMP reviewed and unremarkable. ASSESSMENT: The patient is an 87 year old man with a past medical history of CAD, HTN, hyperlipidemia and cervical radiculopathy who presented for evaluation of a 1 day history of dizziness and gait unsteadiness and was admitted for intractable dizziness. PLAN: 1. Vertigo, etiology likely secondary to labyrinthitis. Continue Antivert 25 mg p.o. every 8 hours p.r.n. The patient reports resolution of his symptoms since admission. 2. CAD. Continue Aspirin 81 mg p.o. daily and Lipitor 20 mg p.o. daily. 3. Hypertension. Blood pressure controlled. The patient is on Enalapril 10 mg p.o. daily at home but this is not on formulary thus he remains on Lisinopril 10 mg p.o. daily. 4. Hyperlipidemia. Continue Lipitor 10 mg p.o. daily. 5. Cervical radiculopathy. 6. GERD. Continue Protonix 40 mg p.o. daily. 7. Prophylaxis. Continue Protonix for GI prophylaxis. DVT prophylaxis not indicated as he is ambulatory. CODE STATUS: Full code. Claude Rayo MD MTDAshley
--- NOTE | 2018-01-08 01:00 | DS ---
ADMITTING DIAGNOSIS: Vertigo. DISCHARGE DIAGNOSES: Vertigo secondary to labyrinthitis. SECONDARY DIAGNOSES: CAD, HTN, GERD, hyperlipidemia, cervical radiculopathy and peripheral neuropathy. CONSULTATIONS: None. PROCEDURES: None. IMAGING STUDIES: 1. Chest x-ray demonstrated no active disease. 2. CT of the head without contrast demonstrated no acute pathology. HISTORY OF PRESENT ILLNESS: The patient is an 87 year old man with a past medical history of CAD, hypertension and cervical radiculopathy who presented for evaluation of a 2 day history of dizziness and gait unsteadiness. The patient reports that approximately 2 weeks ago he had experienced URI-type symptoms that resolved spontaneously after 5 days. Since resolution of those symptoms he was in his usual state of health until the day prior to presentation to the ED when he developed dizziness and gait unsteadiness. The patient has previously been admitted for similar symptoms and as such his daughter brought him to the ED for further evaluation. He denied headaches, photophobia, diplopia, weakness, speech difficulty, odynophagia or dysphagia associated with the symptoms. Upon arrival to the ED he was noted to be afebrile and hemodynamically stable and workup was essentially unremarkable. A CT of the head demonstrated no acute pathology however due to persistent gait unsteadiness, he was admitted [facility] for IV fluid hydration and continued Meclizine therapy. HOSPITAL COURSE: Upon admission to [facility] he was maintained on normal saline at 100 mL per hour and Antivert 25 mg p.o. every 8 hours as needed for vertigo. He reported quick resolution of his symptoms and denied any recurrence of his symptoms since admission. The following day he was ambulating around the [facility] with no recurrence of his symptoms and, as such, was deemed stable for discharge to home. CONDITION: Good, improved. DISPOSITION: Home. DISCHARGE MEDICATIONS: Aspirin 81 mg p.o. daily, Enalapril 10 mg p.o. daily, Lipitor 20 mg p.o. daily, Omeprazole 40 mg p.o. daily, Folic acid 1 mg p.o. daily, Hydroxyurea 500 mg p.o. daily, Neurontin 1200 mg p.o. t.i.d. and Antivert 25 mg p.o. every 8 hours as needed for vertigo. DISCHARGE INSTRUCTIONS: The patient was advised that if he has any recurrence of his symptoms to present to his PMD or to the nearest ED immediately. He was also advised to remain adequately hydrated. FOLLOWUP: The patient will follow up with his PMD within 1 week of discharge. Claude Rayo MD MIHAELA
== END 2018-01-07 10:59 | disposition home or self-care (01) ==
LOC: ED 13:39 → ERH 17:21 → 3RNO 18:27
PROVIDERS: ADMIT Student in an Organized Health Care Education/Training Program; ATTEND Student in an Organized Health Care Education/Training Program
DX: H83.09 Labyrinthitis, unspecified ear (principal); E86.0 Dehydration; E78.5 Hyperlipidemia, unspecified; G62.9 Polyneuropathy, unspecified; I10 Essential (primary) hypertension; I25.10 Atherosclerotic heart disease of native coronary artery without angina pectoris; K21.9 Gastro-esophageal reflux disease without esophagitis; M54.12 Radiculopathy, cervical region; Z79.82 Long term (current) use of aspirin; Z90.49 Acquired absence of other specified parts of digestive tract; Z98.42 Cataract extraction status, left eye; Z98.41 Cataract extraction status, right eye; R40.2412 Glasgow coma scale score 13-15, at arrival to emergency department
CPT/HCPCS: 36415; 70450; 71045; 80053; 81001; 82550; 82553; 82803; 83615; 83735; 84484; 85025; 85610; 85730; 87040; 87086; 87804; 93005; 99285; G0378; J7040

== ENCOUNTER 2018-04-14 07:37 | Day surgery (SDC) | payer MEDICARE ==
[2018-04-14 07:58] VITALS: BMI 25.7
[2018-04-14] MEDS ORDERED: Lidocaine 2% Inj (20ml) ONE (08:47)
[2018-04-14] MEDS ORDERED: Propofol 10 mg/ml Inj (20 ML) ONE (08:47)
[2018-04-14] MEDS ORDERED: Etomidate 20 mg/10ml Inj IV ONE (08:47)
[2018-04-14] MEDS ORDERED: Sodium Chloride 0.9% 1,000 ML IV SCH (09:30)
[2018-04-14 10:49] VITALS: RESP 20
[2018-04-14 10:51] VITALS: BP 128/65; PULSE 63; TEMP 97.6; O2SAT 96
== END 2018-04-14 11:00 | disposition home or self-care (01) ==
LOC: ENDO 07:37
PROVIDERS: ATTEND Internal Medicine Gastroenterology
DX: K29.50 Unspecified chronic gastritis without bleeding (principal); R10.13 Epigastric pain
CPT/HCPCS: 43239; 88305; 88342; J2704; J7030; J7040

== ENCOUNTER 2018-07-07 09:00 | Day surgery (SDC) | payer MEDICARE ==
[2018-05-28 13:31] VITALS: BMI 25.7
[2018-07-07] MEDS ORDERED: Propofol 10 mg/ml Inj (20 ML) ONE (10:45)
[2018-07-07 12:18] VITALS: BP 141/74; PULSE 64; RESP 18; TEMP 97.4; O2SAT 95
== END 2018-07-07 13:04 | disposition home or self-care (01) ==
LOC: ENDO 09:00
PROVIDERS: ATTEND Internal Medicine Gastroenterology
DX: Z12.11 Encounter for screening for malignant neoplasm of colon (principal); K62.1 Rectal polyp; K57.30 Diverticulosis of large intestine without perforation or abscess without bleeding; K64.8 Other hemorrhoids; I10 Essential (primary) hypertension; E78.5 Hyperlipidemia, unspecified; D47.3 Essential (hemorrhagic) thrombocythemia; E78.00 Pure hypercholesterolemia, unspecified; K21.9 Gastro-esophageal reflux disease without esophagitis; Z90.49 Acquired absence of other specified parts of digestive tract; R10.13 Epigastric pain; K29.70 Gastritis, unspecified, without bleeding; I25.10 Atherosclerotic heart disease of native coronary artery without angina pectoris; G62.9 Polyneuropathy, unspecified; Z86.19 Personal history of other infectious and parasitic diseases; Z86.010 Personal history of colon polyps; Z79.82 Long term (current) use of aspirin; Z80.0 Family history of malignant neoplasm of digestive organs
CPT/HCPCS: 45380; 88305; J2704; J7040

== ENCOUNTER 2018-11-11 03:24 | Inpatient (IN) | payer MEDICARE ==
[2018-11-11] MEDS ORDERED: TraMADol/Apap 37.5/325 mg Tab PO STA (04:12)
--- NOTE | 2018-11-11 04:43 | ED PDOC ---
Arrival/HPI - General Chief Complaint: Trauma Time Seen by Provider: 11/11/18 04:06 Historian: Patient - History of Present Illness Narrative History of Present Illness (Text): 11/11/18 04:40 88 year old male, whose past medical history includes hypertension and neuropathy, presents to the emergency department complaining for a mechanical fall, on 2 days prior. Patient states he fell and hit his head. Patient states he has shoulder and neck pain. Patient denies any LOC, dizziness, headache, nausea, vomiting, chest pain, shortness of breath, or any other complaints. Time/Duration: < week (2 days) Symptom Onset: Sudden Symptom Course: Unchanged Quality: Aching Activities at Onset: Light Context: Home Past Medical History - Provider Review Nursing Documentation Reviewed: Yes - Infectious Disease Hx of Infectious Diseases: None - Tetanus Immunization Tetanus Immunization: Unknown - Cardiac Hx Pacemaker: No - Pulmonary Hx Respiratory Disorders: No Hx Asthma: No Hx Bronchitis: No Hx Chronic Obstructive Pulmonary Disease (COPD): No Hx Emphysema: No Hx Pneumonia: No Hx Respiratory Aspiration: No Hx Respiratory Tract Infection: No Hx Sleep Apnea: No Hx Tuberculosis: No - Neurological Hx Paralysis: No - HEENT Hx HEENT Disorder: Yes (eyeglasses) Hx Cataracts: Yes (b/l sx) - Renal Hx Renal Disorder: No - Endocrine/Metabolic Hx Endocrine Disorders: No - Hematological/Oncological Hx Blood Transfusions: No Hx Blood Transfusion Reaction: No - Integumentary Hx Dermatological Disorder: Yes Other/Comment: growth to r ear - Musculoskeletal/Rheumatological Hx Musculoskeletal Disorders: Yes - Gastrointestinal Hx Gastrointestinal Disorders: Yes Hx Diverticulitis: No (pt denies) Hx Gastroesophageal Reflux: Yes - Genitourinary/Gynecological Hx Genitourinary Disorders: No - Psychiatric Hx Emotional Abuse: No Hx Physical Abuse: No Hx Substance Use: No - Surgical History Hx Appendectomy: Yes Hx Cardiac Catheterization: Yes (08/02/2013 dr hawley) Hx Coronary Stent: No (pt denies) - Anesthesia Hx Anesthesia Reactions: No Hx Malignant Hyperthermia: No - Suicidal Assessment Feels Threatened In Home Enviroment: No Family/Social History - Physician Review Nursing Documentation Reviewed: Yes Family/Social History: No Known Family HX Smoking Status: Never Smoked Hx Alcohol Use: No Hx Substance Use: No Hx Substance Use Treatment: No Allergies/Home Meds Allergies/Adverse Reactions: Allergies No Known Allergies Allergy (Verified 11/11/18 03:29) Home Medications: Home Meds Medication Instructions Recorded Confirmed Aspirin [Aspir 81] 81 mg PO DAILY 10/10/13 11/11/18 Enalapril Maleate 10 mg PO DAILY 10/10/13 11/11/18 Atorvastatin [Lipitor] 20 mg PO DAILY 06/21/14 11/11/18 Folic Acid 1 mg PO DAILY 04/17/16 11/11/18 Gabapentin [Neurontin] 1,200 mg PO TID 04/17/16 11/11/18 Hydroxyurea [Hydrea] 500 mg PO DAILY 04/17/16 11/11/18 Ergocalciferol (Vitamin D2) 50,000 unit PO QWK 01/06/18 11/11/18 [Vitamin D2] [place]-3 Fatty Acids/Fish Oil [Fish 1,200 mg PO DAILY 01/06/18 11/11/18 Oil 1,000 mg Capsule] Omeprazole 40 mg PO DAILY 11/11/18 11/11/18 Review of Systems - Physician Review All systems were reviewed & negative as marked: Yes - Review of Systems Respiratory: absent: SOB Cardiovascular: absent: Chest Pain Gastrointestinal: absent: Nausea, Vomiting Musculoskeletal: Neck Pain, Myalgias (shoulder) Neurological: absent: Headache, Dizziness Physical Exam Vital Signs Reviewed: Yes Vital Signs Temp Pulse Resp BP Pulse Ox 11/11/18 03:32 97.7 F 87 18 149/77 95 Temperature: Afebrile Blood Pressure: Normal Pulse: Regular Respiratory Rate: Normal Appearance: Positive for: Well-Appearing, Non-Toxic, Comfortable Pain Distress: None Mental Status: Positive for: Alert and Oriented X 3 - Systems Exam Head: Present: Atraumatic, Normocephalic Pupils: Present: PERRL Extroacular Muscles: Present: EOMI Conjunctiva: Present: Normal Mouth: Present: Moist Mucous Membranes Neck: Present: Normal Range of Motion, Paraspinal Tenderness (Paravertebral tenderness to the left side) Respiratory/Chest: Present: Clear to Auscultation, Good Air Exchange. No: Respiratory Distress, Accessory Muscle Use Cardiovascular: Present: Regular Rate and Rhythm, Normal S1, S2. No: Murmurs Abdomen: No: Tenderness, Distention, Peritoneal Signs Back: Present: Normal Inspection Upper Extremity: Present: Normal Inspection. No: Cyanosis, Edema Lower Extremity: Present: Normal Inspection. No: Edema Neurological: Present: GCS=15, CN II-XII Intact, Speech Normal Skin: Present: Warm, Dry, Normal Color. No: Rashes Psychiatric: Present: Alert, Oriented x 3, Normal Insight, Normal Concentration Medical Decision Making ED Course and Treatment: 11/11/18 04:44 Impression: 88 year old male presents for evaluation status post mechanical fall Plan: -- CT Head -- CT CSpine -- Ultracet -- X-ray right shoulder -- Reassess and disposition Prior Visits: pt is refusing soft collar aware of risks of severity of cervical fracture Notes and results from previous visits were reviewed. case \d/w dr leander vega will obs for intracable neck pain and fracture - RAD Interpretation Radiology Orders: 11/11/18 04:11 CERVICAL SPINE W/O CONTRAST [CT] Stat 11/11/18 04:12 HEAD W/O CONTRAST [CT] Stat 11/11/18 04:36 SHOULDER RIGHT [RAD] Stat - Medication Orders Current Medication Orders: Discontinued Medications Tramadol/Acetaminophen (Ultracet 37.5/325 Mg) 1 tab PO ONCE STA Stop: 11/11/18 04:13 Last Admin: 11/11/18 04:26 Dose: 1 tab MAR Pain Assessment Document 11/11/18 04:26 RG (Rec: 11/11/18 04:26 RG [id number]) Pain Reassessment Is this a pain reassessment? Yes Location Pain Location [facility] [place] - Scribe Statement The provider has reviewed the documentation as recorded by the Montserratibmarco Keenan Provider Scribe Attestation: All medical record entries made by the [place]erratibmarco were at my direction and personally dictated by me. I have reviewed the chart and agree that the record accurately reflects my personal performance of the history, physical exam, medical decision making, and the department course for this patient. I have also personally directed, reviewed, and agree with the discharge instructions and disposition. Disposition/Present on Arrival - Present on Arrival Any Indicators Present on Arrival: No History of DVT/PE: No History of Uncontrolled Diabetes: No Urinary Catheter: No History of Decub. Ulcer: No History Surgical Site Infection Following: None - Disposition Have Diagnosis and Disposition been Completed?: Yes Diagnosis: Odontoid fracture, Neck pain Disposition: HOSPITALIZED Disposition Time: 06:20 Condition: FAIR
[2018-11-11] MEDS ORDERED: Morphine 2 mg/ml ISec SC PRN (06:13)
[2018-11-11] MEDS ORDERED: Oxycodone/Acetaminophen 5/325 mg Tab PO PRN (06:47)
--- NOTE | 2018-11-11 07:18 | CT ---
Date of service: 11/11/2018 PROCEDURE: CT HEAD WITHOUT CONTRAST. HISTORY: fall COMPARISON: Noncontrast head CT 01/06/2018. TECHNIQUE: Axial computed tomography images were obtained through the head/brain without intravenous contrast. Radiation dose: Total exam DLP = 936.27 mGy-cm. This CT exam was performed using one or more of the following dose reduction techniques: Automated exposure control, adjustment of the mA and/or kV according to patient size, and/or use of iterative reconstruction technique. FINDINGS: HEMORRHAGE: No intracranial hemorrhage. BRAIN: Good corticomedullary differentiation is seen. Stable, proportional, diffuse expansion of the ventriculosulcal and cisternal spaces is appreciated with white matter lucency compatible with diffuse cerebral atrophy and chronic microangiopathy. No suspicious extra-axial fluid collection is identified and the midline brain anatomy appears grossly nonfocal as imaged. There is no mass effect throughout. VENTRICLES: Unremarkable. No hydrocephalus. CALVARIUM: No destructive bony lesion or displaced fracture identified including through the skullbase. PARANASAL SINUSES: Unremarkable as visualized. No significant inflammatory changes. MASTOID AIR CELLS: Unremarkable as visualized. No inflammatory changes. OTHER FINDINGS: None. IMPRESSION: Age related neuro degenerative changes are reiterated and not significantly changed in the interval. No definite acute intracranial findings. No fracture identified. Concordant preliminary report from [facility], 11/11/2018, 6:15 a.m..
--- NOTE | 2018-11-11 07:39 | CT ---
Date of service: 11/11/2018 PROCEDURE: CT Cervical Spine without contrast HISTORY: fall COMPARISON: None available. TECHNIQUE: Axial computed tomography images were obtained of the cervical spine without the use of intravenous contrast. Coronal and sagittal reformatted images were created and reviewed. Radiation dose: Total exam DLP = 513.16 mGy-cm. This CT exam was performed using one or more of the following dose reduction techniques: Automated exposure control, adjustment of the mA and/or kV according to patient size, and/or use of iterative reconstruction technique. FINDINGS: VERTEBRAE: There is a mild reversal of the cervical curvature. Extensive multilevel spondylosis is appreciated with syndesmophytes anteriorly essentially fusing the cervical spine from C2-3 to C7-1 contiguously. Facet joints appear fused at least at C2-3 through C4-5 contiguously as well. Extensive osteophyte development continues into the upper thoracic spine. Consider potential ankylosing spondylosis or even DISH. While there is no spondylolisthesis appreciated, there is a mildly oblique fracture identified through the addendum adopted process with minimal posterior angulation of the upper odontoid process. Fracture appears just proximal to the junction with the body of C2 making this a type 2 odontoid process fracture. There is no definite soft tissue edema related and periosteal reaction is questioned related to the posterior portion of the odontoid process and this is potentially early or mid stage chronic fracture rather than acute fracture. Clinically correlate further. No additional fracture identified. No focal destructive bony lesion evident. The craniocervical junction appears intact. DISCS/SPINAL CANAL/NEURAL FORAMINA: At C2-3, moderate right and borderline left degenerative neural foraminal stenoses are identified without significant central canal stenosis. At C3-4, a disc osteophyte complex combines with facet and uncovertebral joint arthropathy resulting in severe left and moderate to severe right degenerative neural foraminal stenosis and mild central canal stenosis. At C4-5, severe bilateral degenerative neural foraminal stenoses are identified with a mild central canal stenosis. An irregular disc osteophyte complex identified. At C5-6, a mild to moderate degenerative central stenosis appreciated due to circumferential disc osteophyte complex with moderate right and severe left degenerative neural foraminal stenosis is identified. At C6-7, mild right and moderate left degenerative neural foraminal stenosis appreciate with grossly irregular disc osteophyte present causing mild central canal stenosis. At C7-T1, irregular disc osteophyte complex identified resulting in a mild central stenosis with mild bilateral neural foraminal stenoses present as well. No gross disc herniation appreciable however MRI is more sensitive and can be utilized for greater soft tissue resolution. PARASPINAL SOFT TISSUES: Unremarkable. OTHER FINDINGS: None. IMPRESSION: 1. Oblique type 2 odontoid fracture, with tip minimally angulated posteriorly. Presence of periosteal changes suggests early chronic time frame. Please see discussion above. No soft tissue edema related grossly. 2. Extensive anterior and posterior acquired cervical spinal fusion through bridging osteophytes as discussed above. Consider potential ankylosing spondylosis or DISH though advanced degenerative disc disease is a possibility separate from these diagnoses. There reversal the cervical curvature as well. 3. Multilevel spinal stenosis appears mild at the central canal and variable at the neural foramina at multiple levels including severe stenosis. Please see discussion above. 4. No gross disc herniation appreciable. MRI is available for greater soft tissue resolution if clinically warranted. Concordant preliminary report from [facility], 11/11/2018, 6:21 a.m..
[2018-11-11 07:49] LABS: BASO # 0.02 K/mm3 (0.0-2.0); BASO % 0.2 % (0.0-3.0); EOS % 0.4 % (1.5-5.0); HEMOGLOBIN 12.5 g/dL (14.0-18.0); LYMPH # 0.8 (1.2-3.4); LYMPH % 7.6 % (22.0-35.0); MEAN CELL VOLUME 107.5 fl (80.0-105.0); MEAN CORPUSCULAR HEMOGLOBIN 34.7 pg (25.0-35.0); MEAN CORPUSCULAR HGB CONC 32.3 g/dl (31.0-37.0); MEAN PLATELET VOLUME 9.2 fl (7.0-11.0); MONO # 0.6 (0.1-0.6); MONO % 5.7 % (1.0-6.0); RBC 3.6 10^6/uL (3.5-6.1); RED CELL DISTRIBUTION WIDTH 13.1 % (11.5-14.5); WHITE BLOOD COUNT 10.1 10^3/uL (4.5-11.0)
[2018-11-11 08:01] LABS: ALB/GLOB RATIO 1.3 (1.1-1.8); ALBUMIN 3.8 g/dL (3.0-4.8); ALT/SGPT 24 U/L (7-56); AST/SGOT 35 U/L (17-59); BLOOD UREA NITROGEN 30 mg/dL (7-21); CALCIUM 8.7 mg/dL (8.4-10.5); GFR NON-AFRICAN AMERICAN 52
[2018-11-11] MEDS: Pantoprazole 40 mg EC Tab PO SCH (09:49)
--- NOTE | 2018-11-11 10:14 | HP ---
HISTORY OF PRESENT ILLNESS: The patient is an 88-year-old man with a past medical history of hypertension and cervical radiculopathy who presented s/p mechanical fall with resultant head and shoulder trauma. The patient reports that approximately 2 days prior to presentation to the ED he sustained a mechanical fall with the aforementioned trauma. Initially he was able to bear the pain but over the next 36 hours the pain increased in severity and was no longer responsive to OTC analgesics which prompted his ED evaluation. In the ED he was in moderate distress secondary to pain and exhibited decreased range of motion to his neck (limited by pain). A CT of the C-spine demonstrated an oblique type 2 odontoid fracture but no soft tissue edema. He received Percocet and Morphine without relief of pain and as such was admitted for intractable pain. PAST MEDICAL HISTORY: As per HPI, also hyperlipidemia, GERD, essential thrombocythemia and CAD. PAST SURGICAL HISTORY: Bilateral cataract removal and appendectomy. ALLERGIES: NKDA. MEDICATIONS: Aspirin 81 mg p.o. daily, Lipitor 20 mg p.o. daily, Enalapril 10 mg p.o. daily, Omeprazole 40 mg p.o. daily, Folic acid 1 mg p.o. daily, Hydroxyurea 500 mg p.o. daily and Gabapentin 600 mg p.o. b.i.d. FAMILY HISTORY: Noncontributory. SOCIAL HISTORY: The patient reports social alcohol use but denies tobacco use or illicit drug abuse. REVIEW OF SYSTEMS: A 12-point review of systems is negative except as per HPI. PHYSICAL EXAMINATION: VITAL SIGNS: Temperature 97.7, pulse 75, blood pressure 117/58, respiratory rate 18, oxygen saturation 92% on room air. GENERAL: No apparent distress. HEENT: PERRL, EOMI. No scleral icterus. No conjunctival pallor. NECK: Decreased range of motion with lateral movement (limited by pain). No JVD, no bruits. LUNGS: Clear to auscultation. CARDIOVASCULAR: Regular rate and rhythm. Normal S1, S2. ABDOMEN: Normoactive bowel sounds. Soft, nontender, nondistended. EXTREMITIES: No edema. NEUROLOGIC: Awake, alert and oriented x 3. No focal motor deficits. LABORATORY DATA: WBC 10 with 86% neutrophils, hemoglobin 12.5, hematocrit 39, platelets 277. Sodium 139, potassium 4.7, chloride 107, bicarb 26, BUN 30, creatinine 1.3, glucose 134. IMAGING STUDIES: 1. CT of the C-spine without contrast demonstrated oblique type 2 odontoid fracture with tip minimally angulated posteriorly with no soft tissue edema and multilevel spinal stenosis. 2. CT of the head without contrast demonstrated age-related neurodegenerative changes but otherwise no acute pathology. ASSESSMENT: The patient is an 88-year-old man with multiple medical comorbidities including cervical radiculopathy who presented s/p mechanical fall with resultant head and neck trauma and was admitted for neurosurgical evaluation of type 2 odontoid fracture and for management of intractable pain. PLAN: 1. Type 2 odontoid fracture. Evaluation by Dr. Ross of Neurosurgery is pending. The patient will likely require a C-spine collar. Continue Morphine 1 mg IV q. 4 hours p.r.n. pain and Colace 100 mg p.o. b.i.d for bowel regimen. Continue Flexeril 5 mg p.o. q. 8 hours p.r.n. spasm. 2. Hypertension. Blood pressure controlled. The patient is on Enalapril but this is not on formulary. Start Lisinopril 10 mg p.o. daily. 3. Hyperlipidemia. Continue Lipitor 20 mg p.o. daily. 4. CAD. Continue Aspirin 81 mg p.o. daily and Lipitor 20 mg p.o. daily. 5. Cervical radiculopathy. As above, neurosurgical evaluation is pending. Continue with care as per #1. 6. GERD. Continue Protonix 40 mg p.o. daily. 7. Essential thrombocythemia. Continue Folic acid 1 mg p.o. daily and Hydroxyurea 500 mg p.o. daily. 8. Prophylaxis. Continue Protonix for GI prophylaxis and SCDs for DVT prophylaxis. CODE STATUS: Full code. Claude Rayo MD MTDD
--- NOTE | 2018-11-11 10:37 | CP.PCM.CON ---
History of Present Illness - History of Present Illness History of Present Illness: dictated MRI ordred soft c collar Past Patient History - Infectious Disease Hx of Infectious Diseases: None - Tetanus Immunizations Tetanus Immunization: Unknown - Past Social History Smoking Status: Never Smoked - CARDIAC Hx Pacemaker: No - PULMONARY Hx Respiratory Disorders: No Hx Asthma: No Hx Bronchitis: No Hx Chronic Obstructive Pulmonary Disease (COPD): No Hx Emphysema: No Hx Pneumonia: No Hx Respiratory Aspiration: No Hx Respiratory Tract Infection: No Hx Sleep Apnea: No Hx Tuberculosis: No - NEUROLOGICAL Hx Paralysis: No - HEENT Hx HEENT Problems: Yes (eyeglasses) Hx Cataracts: Yes (b/l sx) - RENAL Hx Chronic Kidney Disease: No - ENDOCRINE/METABOLIC Hx Endocrine Disorders: No - HEMATOLOGICAL/ONCOLOGICAL Hx Blood Transfusions: No Hx Blood Transfusion Reaction: No - INTEGUMENTARY Hx Dermatological Problems: Yes Other/Comment: growth to r ear - MUSCULOSKELETAL/RHEUMATOLOGICAL Hx Musculoskeletal Disorders: Yes - GASTROINTESTINAL Hx Gastrointestinal Disorders: Yes Hx Diverticulitis: No (pt denies) Hx Gastroesophageal Reflux: Yes - GENITOURINARY/GYNECOLOGICAL Hx Genitourinary Disorders: No - PSYCHIATRIC Hx Emotional Abuse: No Hx Physical Abuse: No Hx Substance Use: No - SURGICAL HISTORY Hx Appendectomy: Yes Hx Cardiac Catheterization: Yes (08/02/2013 dr hawley) Hx Coronary Stent: No (pt denies) - ANESTHESIA Hx Anesthesia Reactions: No Hx Malignant Hyperthermia: No Meds Allergies/Adverse Reactions: Allergies Allergy/AdvReac Type Severity Reaction Status Date / Time No Known Allergies Allergy Verified 11/11/18 03:29 - Medications Medications: Current Medications Aspirin (Aspirin Chewable) 81 mg PO DAILY [facility] Last Admin: 11/11/18 09:49 Dose: 81 mg Atorvastatin Calcium (Lipitor) 20 mg PO DAILY [facility] Last Admin: 11/11/18 09:48 Dose: 20 mg Cyclobenzaprine HCl (Flexeril) 5 mg PO Q8 PRN PRN Reason: Muscle spasm Last Admin: 11/11/18 09:48 Dose: 5 mg Docusate Sodium (Colace) 100 mg PO BID [facility] Last Admin: 11/11/18 09:48 Dose: 100 mg Folic Acid (Folic Acid) 1 mg PO DAILY [facility] Last Admin: 11/11/18 09:48 Dose: 1 mg Hydroxyurea (Hydrea) 500 mg PO DAILY [facility] Lisinopril (Zestril) 10 mg PO DAILY [facility] Last Admin: 11/11/18 09:48 Dose: 10 mg Morphine Sulfate (Morphine) 1 mg IVP Q4H PRN PRN Reason: Pain, moderate (4-7) Pantoprazole Sodium (Protonix Ec Tab) 40 mg PO DAILY [facility] Last Admin: 11/11/18 09:49 Dose: 40 mg Results - Vital Signs Recent Vital Signs: Last Vital Signs Temp 97.9 F 11/11/18 09:00 Pulse 75 11/11/18 09:48 Resp 20 11/11/18 09:00 BP 159/74 H 11/11/18 09:48 Pulse Ox 99 11/11/18 09:00 - Labs Result Diagrams: 11/11/18 07:33 11/11/18 07:33 Labs: Laboratory Results - last 24 hr 11/11/18 11/11/18 07:33 07:33 WBC 10.1 RBC 3.60 Hgb 12.5 L Hct 38.7 L MCV 107.5 H MCH 34.7 MCHC 32.3 RDW 13.1 Plt Count 277 MPV 9.2 Neut % (Auto) 86.1 H Lymph % (Auto) 7.6 L [place] % (Auto) 5.7 Eos % (Auto) 0.4 L Baso % (Auto) 0.2 Lymph # (Auto) 0.8 L [place] # (Auto) 0.6 Eos # (Auto) 0.0 Baso # (Auto) 0.02 Absolute Neuts (auto) 8.70 H Sodium 139 Potassium 4.7 Chloride 107 Carbon Dioxide 26 Anion Gap 10 BUN 30 H Creatinine 1.3 Est GFR ( Amer) > 60 Est GFR (Non-Af Amer) 52 Random Glucose 134 H Calcium 8.7 Total Bilirubin 0.6 AST 35 ALT 24 Alkaline Phosphatase 56 Total Protein 6.7 Albumin 3.8 Globulin 2.9 Albumin/Globulin Ratio 1.3
--- NOTE | 2018-11-11 15:56 | RAD ---
PROCEDURE: Radiographs of the Right Shoulder HISTORY: fall COMPARISON: None available. FINDINGS: BONES: No acute displaced fracture. The distal clavicle and underlying ribs appear intact. JOINTS: No acute dislocation. Glenohumeral joint space narrowing. Acromioclavicular arthropathy. SOFT TISSUES: Soft tissues appear unremarkable. No evidence of radiopaque foreign body. IMPRESSION: Degenerative changes including glenohumeral joint space narrowing and acromioclavicular arthropathy. No acute displaced fracture or dislocation evident. If symptoms persist or if there is continued clinical concern, x-ray follow-up in 7-10 days should be considered.
[2018-11-11] MEDS: Lidocaine 5% Patch TD SCH (18:45)
--- NOTE | 2018-11-11 18:46 | CON ---
DATE: 11/11/2018 NEUROLOGY CONSULTATION CHIEF COMPLAINT: Confusion. HISTORY OF PRESENT ILLNESS: This is an 88-year-old man with history of hypertension and cervical radiculopathy, history of hyperlipidemia, coronary artery disease status post mechanical fall resultant in head and shoulder trauma. The patient reports that approximately 2 days prior presented to the ER, sustained a mechanical fall on aforementioned trauma. Initially, he was able to bear pain, but over the next day, he has got pain, increased in intensity, no longer able to tolerate [id number] pain medications; therefore came to the hospital and had decreased limited motion of his neck, limited by pain. A CAT of the cervical spine demonstrated odontoid type-2 fracture, but no soft tissue edema or underlying cervical stenosis. There is fusion from C2-C3 and C3-C4. He was given Percocet and morphine and was called to evaluate for his transient confusion. Currently, he is back on his baseline, calling a , likely was more of combination of morphine and Flexeril medication caused him to be mildly confused; therefore, we will discontinue. We will probably recommend him to be on Lidoderm patch and possible could consider gabapentin 300 daily at bedtime if needed for neuropathic relief and continue with cervical collar as per Neurosurgery. Await for the evaluation. PAST MEDICAL HISTORY: As above. SOCIAL HISTORY: No illicit drug use, smoking or EtOH abuse. REVIEW OF SYSTEMS: A 14-point review of systems is negative except as per HPI. FAMILY HISTORY: Noncontributory. MEDICATIONS: Reviewed by nurse's reconciliation sheet. PHYSICAL EXAMINATION: VITAL SIGNS: Temperature of 97.7, pulse rate 75, blood pressure 117/58, respiratory rate 18, and oxygen saturation 92% on room air. GENERAL: The patient is sitting up in bed and in no acute distress. HEENT: Atraumatic and normocephalic. PERRLA. Extraocular muscles intact. NECK: Supple, no JVD, no adenopathy noted. LUNGS: Clear to auscultation. No adventitious sounds. HEART: S1 and S2. Normal rate and rhythm. No murmurs, rubs, or gallops. ABDOMEN: Soft, nontender, and nondistended. Bowel sounds present. EXTREMITIES: No clubbing and no cyanosis. Peripheral pulses are 2+ bilaterally. NEUROLOGICAL: The patient is alert and oriented to person, place, and year, Recall after 5 minutes is 2/3. Poor attention span. Slow thought process. Cranial nerves II through XII are intact. Motor examination; moves all extremities. No pronator drift seen. Sensory exam: Decreased light touch, pinprick, proprioception and decreased vibration to the toes. DTRs are 2+ throughout one on in both knees and ankles. Coordination is intact. No dysmetria noted. Gait is deferred for now. ASSESSMENT AND PLAN: 1. An 88-year-old man with history of hypertension, hyperlipidemia, coronary artery disease, cervical radiculopathy with cervical fusion at C2-C3 and C4-C5 seen on cervical CAT scan, status post mechanical fall with resultant head and neck trauma, neurosurgical evaluation with type-2 odontoid fracture and management of intractable neck pain as in the cervical collar and had transient confusion state for underlying possible sedative opiate medications, combination of morphine and Flexeril. Now is back to baseline. We will recommend in regards to the severe neck pain possible resume his home Lyrica dose as well as Lidoderm patch to the neck and continue with cervical collar as per Neurosurgery. 2. Keep his blood pressure between 130s to 140s and diastolic 70s to 80s. 3. Aspirin 81 mg and Lipitor 20 mg daily for his underlying coronary artery disease and continue possible physical therapy. Thank you for this consult. Pawan Villagomez MD
[2018-11-11 21:33] VITALS: BMI 25.1
[2018-11-11] MEDS ORDERED: Influenza Vaccine 60 mcg/0.5 mL SYR (4YR UP) IM ONE (21:34)
[2018-11-11] MEDS ORDERED: Pneumococcal 23-Valent Vaccine IM ONE (21:34)
--- NOTE | 2018-11-12 07:36 | CON ---
DATE OF CONSULTATION: 11/11/2018 HISTORY OF PRESENT ILLNESS: This is an 88-year-old gentleman that fell 2 days ago pretty bad fall down of stairs developed severe neck pain. Over the ensuing day and a half, he noticed progressively severe neck pain associated with weakness. He noticed he was unable to really walk well, coordinate with hands, he presented himself to the [facility] ER and he was found to have an odontoid fracture. PAST MEDICAL HISTORY: Reviewed in the EMR, he carried a diagnosis of cervical radiculopathy, I am not sure how this was established. REVIEW OF SYSTEMS: He indicates to me that he is actually has difficulty walking for the past year or so, which obviously is of some concern. PHYSICAL EXAMINATION: NEUROLOGIC: Severe neck tenderness, really any kind of motion in severe neck pain. He does have a minimal 5-/5 strength throughout, although his coordination seems rather poor in terms of really not able to feed himself properly. His reflexes . Piotr's negative bilaterally. Sensory exam was grossly intact. Gait obviously not tested. LABORATORY DATA: CT of the cervical spine does show a typical type 2 odontoid fracture, there was no displacement. There was no increase in predental space. ASSESSMENT AND PLAN: I am going to order an MRI on the patient to district court judge whether this is new or old, although I do suspect new. In addition, obviously, there is a concern for cervical myelopathy here considering the patient's preexisting symptoms. In the interim, I am going to order a soft cervical collar for him and we will followup the MRI. Frantz Christensen MD
--- NOTE | 2018-11-12 09:41 | CP.PCM.PN ---
Subjective - Date & Time of Evaluation Date of Evaluation: 11/12/18 Time of Evaluation: 09:41 - Subjective Subjective: MRI pending unlikly fracture will heal without stabilization will discuss with family Objective - Vital Signs/Intake and Output Vital Signs (last 24 hours): Temp Pulse Resp BP Pulse Ox 98 F 90 20 150/90 96 11/12/18 06:00 11/12/18 06:00 11/12/18 06:00 11/12/18 06:00 11/12/18 06:00 Intake and Output: 11/12/18 11/12/18 06:59 18:59 Intake Total 960 Output Total 600 Balance 360 - Medications Medications: Current Medications Aspirin (Aspirin Chewable) 81 mg PO DAILY [facility] Last Admin: 11/11/18 09:49 Dose: 81 mg Atorvastatin Calcium (Lipitor) 20 mg PO DAILY [facility] Last Admin: 11/11/18 09:48 Dose: 20 mg Cyclobenzaprine HCl (Flexeril) 5 mg PO Q8 PRN PRN Reason: Muscle spasm Last Admin: 11/11/18 09:48 Dose: 5 mg Docusate Sodium (Colace) 100 mg PO BID [facility] Last Admin: 11/11/18 18:45 Dose: 100 mg Folic Acid (Folic Acid) 1 mg PO DAILY [facility] Last Admin: 11/11/18 09:48 Dose: 1 mg Hydroxyurea (Hydrea) 500 mg PO DAILY [facility] Last Admin: 11/11/18 11:23 Dose: 500 mg Lidocaine (Lidoderm) 1 ea TD DAILY [facility] Last Admin: 11/11/18 18:45 Dose: 1 ea Lisinopril (Zestril) 20 mg PO DAILY [facility] Morphine Sulfate (Morphine) 1 mg IVP Q4H PRN PRN Reason: Pain, moderate (4-7) Pantoprazole Sodium (Protonix Ec Tab) 40 mg PO DAILY [facility] Last Admin: 11/11/18 09:49 Dose: 40 mg - Labs Labs: 11/11/18 07:33 11/11/18 07:33
[2018-11-12] MEDS: Pantoprazole 40 mg EC Tab PO SCH (11:27)
[2018-11-12] MEDS: Lidocaine 5% Patch TD SCH (11:28)
--- NOTE | 2018-11-12 13:17 | PN ---
SUBJECTIVE: The patient was seen and examined at bedside on the general medical hol[facility]. No acute events overnight. This morning he feels well but does complain about the need to wear the C-spine collar. Otherwise he feels ok and offers no complaints. OBJECTIVE: VITAL SIGNS: Temperature 98.4, pulse 88, blood pressure 159/74, respiratory rate 18 and oxygen saturation 98% on room air. GENERAL: No apparent distress. HEENT: PERRL, EOMI. No scleral icterus. No conjunctival pallor. NECK: Soft C-spine collar in place. LUNGS: Clear to auscultation. CARDIOVASCULAR: Regular rate and rhythm. Normal S1 and S2. ABDOMEN: Normoactive bowel sounds. Soft, nontender and nondistended. EXTREMITIES: No edema. NEUROLOGIC: Awake, alert and oriented x 3. No focal motor deficits. LABORATORY DATA: Morning labs are pending. ASSESSMENT: The patient is an 88-year-old man with multiple medical comorbidities including cervical radiculopathy who presented s/p mechanical fall with resultant head and neck trauma and was admitted for neurosurgical evaluation of type 2 odontoid fracture and management of intractable pain. PLAN: 1. Type 2 odontoid fracture. Input from Dr. Christensen noted. A soft C-spine collar has been applied. MRI pending to determine the chronicity of the fracture and to evaluate for cervical myelopathy. Input from Dr. Villagomez noted. Continue Morphine 1 mg IV q. 4 hours p.r.n. pain and Flexeril 5 mg p.o. q. 8 hours p.r.n. spasm. Continue Colace 100 mg p.o. b.i.d. for bowel regimen. 2. Hypertension. Blood pressure elevated. We will increase Lisinopril to 20 mg p.o. daily. 3. Hyperlipidemia. Continue Lipitor 20 mg p.o. daily. 4. CAD. Continue Aspirin 81 mg p.o. daily and Lipitor 20 mg p.o. daily. 5. Cervical radiculopathy. Continue with care as per #1. MRI pending. 6. GERD. Continue Protonix 40 mg p.o. daily. 7. Essential thrombocythemia. Continue Folic acid 1 mg p.o. daily and Hydroxyurea 500 mg p.o. daily. 8. Prophylaxis. Continue Protonix for GI prophylaxis and SCDs for DVT prophylaxis. CODE STATUS: Full code. Claude Rayo MD [email or web address]
--- NOTE | 2018-11-12 14:41 | CP.PCM.CON ---
<Sharath Nava - Last Filed: 11/12/18 14:35> History of Present Illness - History of Present Illness History of Present Illness: PGY-2 heme/onc consult note for Dr Pratt Mr Culver is a 88 year old male with a PMHx of HTN, HLD, CAD, cervical radiculopathy, GERD, and essential thrombocythemia. We have been consulted for his history of essential thrombocythemia for which he takes folic acid 1mg po qd and hydroxyurea 500mg po qd. He presented s/p mechanical fall with resultant head and shoulder trauma. A CT of the c-spine demonstrated an oblique type 2 odontoid fracture but no soft tissue edema. PMHx: HTN, HLD, CAD, cervical radiculopathy, GERD, and essential thrombocythemia PSHx: bilateral cataract removal and appendectomy Allergies: NKA Home Meds: reviewed per emr FamHx: denies SocialHx: social alcohol use; denies tobacco or illicit drug use Review of Systems - Review of Systems All systems: reviewed and no additional remarkable complaints except (as stated in HPI) Past Patient History - Infectious Disease Hx of Infectious Diseases: None - Tetanus Immunizations Tetanus Immunization: Unknown - Past Social History Smoking Status: Never Smoked - CARDIAC Hx Pacemaker: No - PULMONARY Hx Respiratory Disorders: No Hx Asthma: No Hx Bronchitis: No Hx Chronic Obstructive Pulmonary Disease (COPD): No Hx Emphysema: No Hx Pneumonia: No Hx Respiratory Aspiration: No Hx Respiratory Tract Infection: No Hx Sleep Apnea: No Hx Tuberculosis: No - NEUROLOGICAL Hx Paralysis: No - HEENT Hx HEENT Problems: Yes (eyeglasses) Hx Cataracts: Yes (b/l sx) - RENAL Hx Chronic Kidney Disease: No - ENDOCRINE/METABOLIC Hx Endocrine Disorders: No - HEMATOLOGICAL/ONCOLOGICAL Hx Blood Transfusions: No Hx Blood Transfusion Reaction: No - INTEGUMENTARY Hx Dermatological Problems: Yes Other/Comment: growth to r ear - MUSCULOSKELETAL/RHEUMATOLOGICAL Hx Musculoskeletal Disorders: Yes - GASTROINTESTINAL Hx Gastrointestinal Disorders: Yes Hx Diverticulitis: No (pt denies) Hx Gastroesophageal Reflux: Yes - GENITOURINARY/GYNECOLOGICAL Hx Genitourinary Disorders: No - PSYCHIATRIC Hx Emotional Abuse: No Hx Physical Abuse: No Hx Substance Use: No - SURGICAL HISTORY Hx Appendectomy: Yes Hx Cardiac Catheterization: Yes (08/02/2013 dr hawley) Hx Coronary Stent: No (pt denies) - ANESTHESIA Hx Anesthesia Reactions: No Hx Malignant Hyperthermia: No Meds Allergies/Adverse Reactions: Allergies Allergy/AdvReac Type Severity Reaction Status Date / Time No Known Allergies Allergy Verified 11/11/18 03:29 - Medications Medications: Current Medications Aspirin (Aspirin Chewable) 81 mg PO DAILY [facility] Last Admin: 11/12/18 11:27 Dose: 81 mg Atorvastatin Calcium (Lipitor) 20 mg PO DAILY [facility] Last Admin: 11/12/18 11:27 Dose: 20 mg Cyclobenzaprine HCl (Flexeril) 5 mg PO Q8 PRN PRN Reason: Muscle spasm Last Admin: 11/11/18 09:48 Dose: 5 mg Docusate Sodium (Colace) 100 mg PO BID [facility] Last Admin: 11/12/18 11:27 Dose: 100 mg Folic Acid (Folic Acid) 1 mg PO DAILY [facility] Last Admin: 11/12/18 11:27 Dose: 1 mg Hydroxyurea (Hydrea) 500 mg PO DAILY [facility] Last Admin: 11/12/18 11:28 Dose: 500 mg Lidocaine (Lidoderm) 1 ea TD DAILY [facility] Last Admin: 11/12/18 11:28 Dose: 1 ea Lisinopril (Zestril) 20 mg PO DAILY [facility] Last Admin: 11/12/18 11:27 Dose: 20 mg Morphine Sulfate (Morphine) 1 mg IVP Q4H PRN PRN Reason: Pain, moderate (4-7) Pantoprazole Sodium (Protonix Ec Tab) 40 mg PO DAILY [facility] Last Admin: 11/12/18 11:27 Dose: 40 mg Physical Exam - Additional Findings Additional findings: - Constitutional Appears: Non-toxic, No Acute Distress - Head Exam Head Exam: limited range of motion 2/2 pain - ENT Exam ENT Exam: Mucous Membranes Moist, Normal Oropharynx - Neck Exam Neck exam: Negative for: Lymphadenopathy, Meningismus - Respiratory Exam Respiratory Exam: Decreased Breath Sounds. absent: Rales, Rhonchi - Cardiovascular Exam Cardiovascular Exam: +S1, +S2 - GI/Abdominal Exam GI & Abdominal Exam: Soft. absent: Tenderness Results - Vital Signs Recent Vital Signs: Last Vital Signs Temp 98.1 F 11/12/18 14:00 Pulse 114 H 11/12/18 14:00 Resp 20 11/12/18 14:00 BP 122/75 11/12/18 14:00 Pulse Ox 93 L 11/12/18 14:00 - Labs Result Diagrams: 11/11/18 07:33 11/11/18 07:33 Assessment & Plan - Assessment and Plan (Free Text) Plan: Mr Culver is a 88 year old male with a PMHx of HTN, HLD, CAD, cervical radiculopathy, GERD, and essential thrombocythemia. We have been consulted for his history of essential thrombocythemia for which he takes folic acid 1mg po qd and hydroxyurea 500mg po qd. He presented s/p mechanical fall with resultant head and shoulder trauma: Essential Thrombocytemia -diagnosed many years ago -platelet level normal -continue folic acid 1mg po qd -continue hydroxyurea 500mg po qd Seen and discussed with Dr Pratt <Speedy Pratt P - Last Filed: 11/13/18 19:09> Meds - Medications Medications: Current Medications Aspirin (Aspirin Chewable) 81 mg PO DAILY [facility] Last Admin: 11/13/18 10:40 Dose: 81 mg Atorvastatin Calcium (Lipitor) 20 mg PO DAILY [facility] Last Admin: 11/13/18 10:40 Dose: 20 mg Cyclobenzaprine HCl (Flexeril) 5 mg PO Q8 PRN PRN Reason: Muscle spasm Last Admin: 11/13/18 05:41 Dose: 5 mg Docusate Sodium (Colace) 100 mg PO BID [facility] Last Admin: 11/13/18 17:34 Dose: 100 mg Folic Acid (Folic Acid) 1 mg PO DAILY [facility] Last Admin: 11/13/18 10:40 Dose: 1 mg Hydroxyurea (Hydrea) 500 mg PO DAILY [facility] Last Admin: 11/13/18 10:41 Dose: 500 mg Sodium Chloride (Sodium Chloride 0.9%) 1,000 mls @ 100 mls/hr IV .Q10H [facility] Last Admin: 11/13/18 18:03 Dose: 100 mls/hr Lidocaine (Lidoderm) 1 ea TD DAILY [facility] Last Admin: 11/13/18 10:40 Dose: 1 ea Morphine Sulfate (Morphine) 1 mg IVP Q4H PRN PRN Reason: Pain, moderate (4-7) Pantoprazole Sodium (Protonix Ec Tab) 40 mg PO DAILY [facility] Last Admin: 11/13/18 10:40 Dose: 40 mg Quetiapine Fumarate (Seroquel) 12.5 mg PO HS [facility]; Protocol Last Admin: 11/12/18 21:10 Dose: 12.5 mg Results - Vital Signs Recent Vital Signs: Last Vital Signs Temp 98.8 F 11/13/18 18:55 Pulse 117 H 11/13/18 18:55 Resp 16 11/13/18 18:55 BP 107/67 11/13/18 18:55 Pulse Ox 93 L 11/13/18 18:55 - Labs Result Diagrams: 11/13/18 06:45 11/13/18 06:45 Labs: Laboratory Results - last 24 hr 11/13/18 11/13/18 11/13/18 06:45 06:45 14:00 WBC 14.7 H D RBC 4.01 Hgb 14.3 Hct 42.6 MCV 106.2 H MCH 35.7 H MCHC 33.6 RDW 13.1 Plt Count 299 MPV 8.9 PT INR APTT Sodium 138 Potassium 5.1 H Chloride 105 Carbon Dioxide 24 Anion Gap 14 BUN 39 H Creatinine 3.2 H Est GFR ( Amer) 22 Est GFR (Non-Af Amer) 19 Random Glucose 127 H Calcium 9.2 Blood Type A NEGATIVE Antibody Screen Negative BBK History Checked Patient has bt 11/13/18 15:30 WBC RBC Hgb Hct MCV MCH MCHC RDW Plt Count MPV PT 15.5 H INR 1.40 APTT 31.8 Sodium Potassium Chloride Carbon Dioxide Anion Gap BUN Creatinine Est GFR ( Amer) Est GFR (Non-Af Amer) Random Glucose Calcium Blood Type Antibody Screen BBK History Checked Attending/Attestation - Attestation I have personally seen and examined this patient.: Yes I have fully participated in the care of the patient.: Yes I have reviewed all pertinent clinical information: Yes
--- NOTE | 2018-11-12 16:36 | MRI ---
Date of service: 11/12/2018 PROCEDURE: MR CERVICAL SPINE WITHOUT CONTRAST HISTORY: odontoid fx COMPARISON: Cervical spine CT without contrast 11/11/2018. TECHNIQUE: Multiecho sagittal sequences were performed through the cervical spine without the use of intravenous contrast. FINDINGS: Study is compromised by motion artifacts. Axial imaging could not be performed due to increasing motion during the procedure despite conscious sedation administered prior to patient arrival at the MRI suite. Reversal of cervical curvature is reiterated which is fixed due to extensive spondylosis/syndesmophyte formation fusing all except for the C1-2 articulation. No suspicious Marrow edema changes are appreciate including C2/abducted process where there apparently a chronic fracture at the inferior portion of the odontoid process. No prevertebral or paraspinal soft tissue. Craniocervical junction appears unremarkable. There is a continuous stenosis of the central canal beginning at the C2 level terminating at mid C7 due to delayed degenerative posterior longitudinal ligament hypertrophy as well as posterior element and ligamentous hypertrophy at the posterior margins of the cervical central canal. No disc herniation is appreciated grossly. There is also no definite spondylolisthesis identified. No reactive cord signal changes are identified although mild kinking of the upper cervical cord is seen at C2. Disc bulging at T1-2 and T2-3 encroaches ventral nerve roots. Neural foramina are limited evaluation in this examiner better seen in the prior CT. OTHER FINDINGS: None. IMPRESSION: 1. Chronic odontoid fracture. No edema appreciated throughout the odontoid process or prevertebral or paraspinal soft tissues. 2. Reversed cervical curvature with extensive spondylosis/syndesmophyte formation and lengthy mild diffuse central canal stenosis. Again, consider ankylosing spondylitis/DISH.
[2018-11-13 07:03] LABS: HEMOGLOBIN 14.3 g/dL (14.0-18.0); MEAN CELL VOLUME 106.2 fl (80.0-105.0); MEAN CORPUSCULAR HEMOGLOBIN 35.7 pg (25.0-35.0); MEAN CORPUSCULAR HGB CONC 33.6 g/dl (31.0-37.0); MEAN PLATELET VOLUME 8.9 fl (7.0-11.0); RBC 4.01 10^6/uL (3.5-6.1); RED CELL DISTRIBUTION WIDTH 13.1 % (11.5-14.5); WHITE BLOOD COUNT 14.7 10^3/uL (4.5-11.0)
[2018-11-13 07:41] LABS: CALCIUM 9.2 mg/dL (8.4-10.5)
[2018-11-13] MEDS: Pantoprazole 40 mg EC Tab PO SCH (10:40)
[2018-11-13] MEDS: Lidocaine 5% Patch TD SCH (10:40)
--- NOTE | 2018-11-13 12:30 | PN ---
DATE: 11/13/2018 LOCATIONS: The patient is in room 567, bed 1. SUBJECTIVE: There have been no acute events overnight and the patient at this time has no complaints. PHYSICAL EXAMINATION: VITAL SIGNS: Temperature of 98.2, pulse rate of 84, blood pressure 132/82, respiratory rate of 20 with an O2 saturation of 96% on room air. HEENT: PERRLA, EOMI. No icterus present. NECK: Supple. The patient is wearing a collar. LUNGS: Clear to auscultation and percussion bilaterally. HEART: Regular rate and rhythm. ABDOMEN: Benign. NEUROLOGIC: The patient shows no focal motor deficits. The patient initially presented to the emergency room for a mechanical fall with head and neck trauma. CT of the head showed age-related neurodegenerative changes, but no acute pathology. IMPRESSION: Type 2 odontoid fracture, hypertension, hyperlipidemia, coronary artery disease, cervical radiculopathy and essential thrombocytopenia. Chris Rayo MD
--- NOTE | 2018-11-13 13:05 | CP.PCM.PN ---
Subjective - Date & Time of Evaluation Date of Evaluation: 11/13/18 Time of Evaluation: 13:04 - Subjective Subjective: MRI showed fx is old thus would hold off on surgery try in collar x 2/3 wks if pain [id number] would consider surgery at that time d/w family Objective - Vital Signs/Intake and Output Vital Signs (last 24 hours): Temp Pulse Resp BP Pulse Ox 98.2 F 96 H 20 118/66 96 11/13/18 06:00 11/13/18 10:40 11/13/18 06:00 11/13/18 10:40 11/13/18 06:00 Intake and Output: 11/13/18 11/13/18 06:59 18:59 Intake Total 0 240 Output Total 1 Balance 0 239 - Medications Medications: Current Medications Aspirin (Aspirin Chewable) 81 mg PO DAILY [facility] Last Admin: 11/13/18 10:40 Dose: 81 mg Atorvastatin Calcium (Lipitor) 20 mg PO DAILY [facility] Last Admin: 11/13/18 10:40 Dose: 20 mg Cyclobenzaprine HCl (Flexeril) 5 mg PO Q8 PRN PRN Reason: Muscle spasm Last Admin: 11/13/18 05:41 Dose: 5 mg Docusate Sodium (Colace) 100 mg PO BID [facility] Last Admin: 11/13/18 10:40 Dose: 100 mg Folic Acid (Folic Acid) 1 mg PO DAILY [facility] Last Admin: 11/13/18 10:40 Dose: 1 mg Hydroxyurea (Hydrea) 500 mg PO DAILY [facility] Last Admin: 11/13/18 10:41 Dose: 500 mg Lidocaine (Lidoderm) 1 ea TD DAILY [facility] Last Admin: 11/13/18 10:40 Dose: 1 ea Lisinopril (Zestril) 20 mg PO DAILY [facility] Last Admin: 11/13/18 10:40 Dose: 20 mg Morphine Sulfate (Morphine) 1 mg IVP Q4H PRN PRN Reason: Pain, moderate (4-7) Pantoprazole Sodium (Protonix Ec Tab) 40 mg PO DAILY [facility] Last Admin: 11/13/18 10:40 Dose: 40 mg Quetiapine Fumarate (Seroquel) 12.5 mg PO HS [facility]; Protocol Last Admin: 11/12/18 21:10 Dose: 12.5 mg - Labs Labs: 11/13/18 06:45 11/13/18 06:45
--- NOTE | 2018-11-13 15:15 | PN ---
DATE: 11/13/2018 This is [facility] visit on the medical floor. For Dr. Pratt. SUBJECTIVE: The patient is an 88-year-old male seen lying awake in bed with cervical collar on, denying any pain at this point. Known to suffer from a fall with a result in type-2 odontoid fracture, being followed by neurosurgeons. He is followed by Dr. Pratt for thrombocytopenia with pulmonary nodules in the past periodically. OBJECTIVE/PHYSICAL EXAMINATION: VITAL SIGNS: Temperature 98.2, pulse 96, respirations 20, blood pressure 118/66 and pulse oximetry 96%. HEENT: Tongue is moist. Cervical collar is on with neck limited range of motion. HEART: Regular rate, occasional ectopic beat. LUNGS: Minimal decreased breath sounds. ABDOMEN: Soft and nontender. EXTREMITIES: No edema. SKIN: Warm and dry. NEUROLOGIC: Awake and alert. LABORATORY DATA: The patient's labs were done. White blood cell count 14.7, hemoglobin of 14.3, hematocrit 42.6 and platelet count 299,000. With a metabolic panel within normal range except for potassium 5.1, BUN of 32 and creatinine of 3.2 which will be repeated as his previous creatinine was 1.3, two days prior. The patient did have a cervical spine MRI done yesterday, it was read as chronic odontoid fracture, no edema appreciated throughout the odontoid process or prevertebral or paraspinal soft tissues, reverse cervical curvature with extensive spondylosis, mid diffuse central canal stenosis. Again consider ankylosis spondylitis/DISH. ASSESSMENT: Fall, type-2 odontoid fracture, cervical radiculopathy, essential thrombocythemia, gastroesophageal reflux disease and coronary artery disease. PLAN: Continue his present medical regimen. We will repeat his labs as the creatinine andriy from 1.3 to 3.2 on repeat testing. No apparent changes medications to account for this change. This is a complex patient with a comprehensive medical necessary and appropriate visit carried out in excess of 20 minutes with the patient's case discussed with nursing staff. Germán Kelley MD [facility] # [id number]
[2018-11-13 16:10] LABS: INR 1.4; PARTIAL THROMBOPLASTIN TIME 31.8 Seconds (26.9-38.3); PROTHROMBIN TIME 15.5 SECONDS (9.4-12.5)
--- NOTE | 2018-11-13 16:24 | CARD ---
APPROVED REPORT Date of service: 11/13/2018 EKG Measurement Heart [id number] <Conclusion> Sinus tachycardia Possible Left atrial enlargement Inferior infarct, age undetermined Abnormal ECG
[2018-11-13] MEDS: Sodium Chloride 0.9% 1,000 ML IV SCH (18:03)
[2018-11-13] MEDS: Morphine 2 mg/ml ISec IVP PRN (21:56)
[2018-11-14] MEDS: Sodium Chloride 0.9% 1,000 ML IV SCH ×3 (05:31→22:06)
[2018-11-14 07:48] LABS: HEMOGLOBIN 12.8 g/dL (14.0-18.0); MEAN CORPUSCULAR HEMOGLOBIN 35.2 pg (25.0-35.0); MEAN CORPUSCULAR HGB CONC 32.6 g/dl (31.0-37.0); MEAN PLATELET VOLUME 9.1 fl (7.0-11.0); RBC 3.64 10^6/uL (3.5-6.1); RED CELL DISTRIBUTION WIDTH 13.2 % (11.5-14.5); WHITE BLOOD COUNT 12.9 10^3/uL (4.5-11.0)
[2018-11-14 08:13] LABS: CALCIUM 8.4 mg/dL (8.4-10.5)
--- NOTE | 2018-11-14 09:13 | PN ---
SUBJECTIVE: The patient was seen and examined at bedside on the general medical hol[facility]. No acute events overnight. This morning he continues to endorse frustration with the need for the C-spine collar. He also acknowledges periods of delirium yesterday but states that he is "back to normal" today. He otherwise denies fevers, chills, rigors or headache. He does complain of mild lower abdominal discomfort but denies nausea, vomiting, diarrhea, constipation or urinary symptoms. OBJECTIVE: VITAL SIGNS: Temperature 97.9, pulse 79, blood pressure 111/65, respiratory rate 20, oxygen saturation 97% on room air. GENERAL: No apparent distress. HEENT: PERRL, EOMI. No scleral icterus. No conjunctival pallor. NECK: Soft C-spine collar in place. LUNGS: Clear to auscultation. CARDIOVASCULAR: Regular rate and rhythm. Normal S1, S2. Grade II/ murmur to LLSB. ABDOMEN: Normoactive bowel sounds, soft, nondistended, tender to palpation to the suprapubic area with voluntary guarding. EXTREMITIES: No edema. NEUROLOGIC: Awake, alert, and oriented x 3. No focal motor deficits. LABORATORY DATA: WBC 12.9, hemoglobin 13, hematocrit 39, platelets 258. Sodium 136, potassium 5.1, chloride 105, bicarb 22, BUN 63, creatinine 5.5, glucose 120. ASSESSMENT: The patient is an 88-year-old man with multiple medical comorbidities including cervical radiculopathy who presented s/p mechanical fall with resultant head and neck trauma and was admitted for neurosurgical evaluation of type 2 odontoid fracture and management of intractable pain whose hospital course was complicated by development of acute kidney injury. PLAN: 1. Type 2 odontoid fracture. Input from Dr. Christensen noted. No need for acute surgical intervention given MRI findings. Continue with soft C-spine collar. Continue Morphine 1 mg IV q. 4 hours p.r.n. pain and Flexeril 5 mg p.o. q. 8 hours p.r.n. spasm. 2. Acute kidney injury, etiology unclear. Labs demonstrate marked deterioration in renal function. The patient was previously on an ABIODUN inhibitor which was discontinued. He has been placed on IV fluid hydration. We will order a bladder scan and Sousa catheter placement to monitor strict I&O's. Urine studies will be sent for and a CT of the abdomen and pelvis to rule out obstruction. Dr. Tran of Nephrology has been consulted for further evaluation and recommendations. 3. Hypertension. BP controlled off antihypertensives. We will continue to monitor hemodynamics and adjust medications as needed. 4. Hyperlipidemia. Continue Lipitor 20 mg p.o. daily. 5. CAD. Continue Aspirin 81 mg p.o. daily and Lipitor 20 mg p.o. daily. 6. Cervical radiculopathy. Continue with care as per #1. 7. GERD. Continue Protonix 40 mg p.o. daily. 8. Essential thrombocythemia. Continue Folic acid 1 mg p.o. daily and Hydroxyurea 500 mg p.o. daily. 9. Prophylaxis. Continue Protonix for GI prophylaxis and SCDs for DVT prophylaxis. CODE STATUS: Full code. Claude Rayo MD MTDD
[2018-11-14 11:23] LABS: CK MB% 0.9 % (2.5-3.0); CK-MB 7.3 ng/mL (0.0-3.6)
--- NOTE | 2018-11-14 12:14 | CP.PCM.CON ---
History of Present Illness - History of Present Illness History of Present Illness: Nephrology Consultation Note: Assessment: Stable Acute Kidney Injury (N17.9) likely due to urine retention Hypertensive Chronic Kidney Disease (I12.9) Chronic Kidney Disease (N18.3) Stage 3 with ? 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 anticipate renal recovery soon as obstruction is relieved with catheter. Hypertension control with meds as ordered. Maintain hemodynamics stable. Avoid hypotension. Patient not on ACEI/ARB due to recent BELLO Monitor Input/Output, daily weights and renal function with basic metabolic panel continue with [facility] urology eval. agree with flomax Check urine analysis, spot protein/creatinine, albumin/creatinine ratio Check for 25-OH vitamin D, iPTH, phosphorus level. renal/bladder/prostate imaging Dose meds/antibiotics for reduced GFR. Avoid fleets enema/magnesium based laxatives. Avoid nephrotoxins/NSAIDs/ iodinated contrast (unless needed emergently) Glycemic control Further work up/management as per primary team Thanks for allowing me to participate in care of your patient. Will follow patient with you. Please call if any Qs. had d/w team and daughter Dr Braun Marc Office: [phone] Chief Complaint; fall Reason for consult: Acute Kidney Injury HPI: Pt is a 88 M with hx of hypertension (years) essential thrombocythemia GERD CAD cervical radiculopathy presented with complaints of fall and had chronic odontoid fracture. Denies OTC/herbal meds or NSAIDs No recent iodinated contrast exposure. Noted obvious episodes of low BP (90s). renal consult for BELLO which was worsenning. baseline CKD with cr 1.3. pt/daughter not aware about kidney disease in past pt was in urine retention s/p rubio 1200 mL UOP 11/14/18 ROS: Cardiovascular: No chest pain. Pulmonary: No shortness of breath Gastrointestinal: denies abdominal pain No nausea. No vomiting. Genitourinary: No pain while urinating. Denies blood in urine. denies symptoms of BPH earlier All other negative except as mentioned in HPI Physical Examination: General Appearance: Comfortable, in no acute respiratory distress, co-operative . Vitals reviewed and noted as below Head; Atraumatic, normocephalic ENT: no ulcers no thrush. Tongue is midline. Oropharynx: no rash or ulcers. EYES: Pupils are equal, round and reactive to light accommodation. Eye muscles and extraocular movement intact. Sclera is anicteric. Neck; supple no lymphadenopathy, no thyromegaly or bruit. CERVICAL COLLAR + Lungs: Normal respiratory rate/effort. Breath sounds bilateral equal and clear Heart: Normal rate. s1s2 normal. No rub or gallop. Extremities: no edema. No varicose veins Neurological: Patient is alert, awake and oriented to person, place and time. No focal deficit. Strength bilateral appropriate and equal Skin: Warm and dry. Normal turgor. No rash. Palpitation: Normal elasticity for age Abdomen: Abdomen is soft. Bowel sounds +. There is no abdominal tenderness, no guarding/rigidity no organomegaly Psych: normal insight and normal affect/mood MSK: no joint tenderness or swelling. Digits and nails normal, no deformity : kidney or bladder not palpable. has rubio. has suprapubic fullness Labs/imaging reviewed. Past medical history, past surgical history, family history, social history, allergy reviewed and noted as below Family hx: no hx of CKD. Rest non-contributory Past Patient History - Infectious Disease Hx of Infectious Diseases: None - Tetanus Immunizations Tetanus Immunization: Unknown - Past Social History Smoking Status: Never Smoked - CARDIAC Hx Pacemaker: No - PULMONARY Hx Respiratory Disorders: No Hx Asthma: No Hx Bronchitis: No Hx Chronic Obstructive Pulmonary Disease (COPD): No Hx Emphysema: No Hx Pneumonia: No Hx Respiratory Aspiration: No Hx Respiratory Tract Infection: No Hx Sleep Apnea: No Hx Tuberculosis: No - NEUROLOGICAL Hx Paralysis: No - HEENT Hx HEENT Problems: Yes (eyeglasses) Hx Cataracts: Yes (b/l sx) - RENAL Hx Chronic Kidney Disease: No - ENDOCRINE/METABOLIC Hx Endocrine Disorders: No - HEMATOLOGICAL/ONCOLOGICAL Hx Blood Transfusions: No Hx Blood Transfusion Reaction: No - INTEGUMENTARY Hx Dermatological Problems: Yes Other/Comment: growth to r ear - MUSCULOSKELETAL/RHEUMATOLOGICAL Hx Musculoskeletal Disorders: Yes - GASTROINTESTINAL Hx Gastrointestinal Disorders: Yes Hx Diverticulitis: No (pt denies) Hx Gastroesophageal Reflux: Yes - GENITOURINARY/GYNECOLOGICAL Hx Genitourinary Disorders: No - PSYCHIATRIC Hx Emotional Abuse: No Hx Physical Abuse: No Hx Substance Use: No - SURGICAL HISTORY Hx Appendectomy: Yes Hx Cardiac Catheterization: Yes (08/02/2013 dr hawley) Hx Coronary Stent: No (pt denies) - ANESTHESIA Hx Anesthesia Reactions: No Hx Malignant Hyperthermia: No Meds Allergies/Adverse Reactions: Allergies Allergy/AdvReac Type Severity Reaction Status Date / Time No Known Allergies Allergy Verified 11/11/18 03:29 - Medications Medications: Current Medications Aspirin (Aspirin Chewable) 81 mg PO DAILY [facility] Last Admin: 11/13/18 10:40 Dose: 81 mg Atorvastatin Calcium (Lipitor) 20 mg PO DAILY [facility] Last Admin: 11/13/18 10:40 Dose: 20 mg Cyclobenzaprine HCl (Flexeril) 5 mg PO Q8 PRN PRN Reason: Muscle spasm Last Admin: 11/13/18 21:34 Dose: 5 mg Docusate Sodium (Colace) 100 mg PO BID [facility] Last Admin: 11/13/18 17:34 Dose: 100 mg Folic Acid (Folic Acid) 1 mg PO DAILY [facility] Last Admin: 11/13/18 10:40 Dose: 1 mg Hydroxyurea (Hydrea) 500 mg PO DAILY [facility] Last Admin: 11/13/18 10:41 Dose: 500 mg Sodium Chloride (Sodium Chloride 0.9%) 1,000 mls @ 100 mls/hr IV .Q10H [facility] Last Admin: 11/14/18 05:31 Dose: 100 mls/hr Lidocaine (Lidoderm) 1 ea TD DAILY [facility] Last Admin: 11/13/18 10:40 Dose: 1 ea Morphine Sulfate (Morphine) 1 mg IVP Q4H PRN PRN Reason: Pain, moderate (4-7) Last Admin: 11/13/18 21:56 Dose: 1 mg Pantoprazole Sodium (Protonix Ec Tab) 40 mg PO DAILY [facility] Last Admin: 11/13/18 10:40 Dose: 40 mg Quetiapine Fumarate (Seroquel) 12.5 mg PO HS [facility]; Protocol Last Admin: 11/13/18 21:34 Dose: 12.5 mg Tamsulosin HCl (Flomax) 0.4 mg PO DAILY [facility] Results - Vital Signs Recent Vital Signs: Last Vital Signs Temp 97.9 F 11/14/18 06:00 Pulse 79 11/14/18 06:00 Resp 20 11/14/18 06:00 BP 111/65 11/14/18 06:00 Pulse Ox 97 11/14/18 06:00 - Labs Result Diagrams: 11/14/18 06:45 11/14/18 06:45 Labs: Laboratory Results - last 24 hr 11/13/18 11/13/18 11/14/18 14:00 15:30 06:45 WBC 12.9 H RBC 3.64 Hgb 12.8 L Hct 39.3 L MCV 108.0 H MCH 35.2 H MCHC 32.6 RDW 13.2 Plt Count 258 MPV 9.1 PT 15.5 H INR 1.40 APTT 31.8 Sodium Potassium Chloride Carbon Dioxide Anion Gap BUN Creatinine Est GFR ( Amer) Est GFR (Non-Af Amer) Random Glucose Serum Osmolality Calcium Total Creatine Kinase CK-MB (CK-2) CK-MB (CK-2) % Blood Type A NEGATIVE Antibody Screen Negative BBK History Checked Patient has bt 11/14/18 11/14/18 11/14/18 06:45 06:45 07:00 WBC RBC Hgb Hct MCV MCH MCHC RDW Plt Count MPV PT INR APTT Sodium 136 Potassium 5.1 H Chloride 105 Carbon Dioxide 22 Anion Gap 14 BUN 63 H Creatinine 5.5 H Est GFR ( Amer) 12 Est GFR (Non-Af Amer) 10 Random Glucose 120 H Serum Osmolality 304 H Calcium 8.4 Total Creatine Kinase 848 H CK-MB (CK-2) 7.3 H CK-MB (CK-2) % 0.9 L Blood Type Antibody Screen BBK History Checked
[2018-11-14] MEDS: Pantoprazole 40 mg EC Tab PO SCH (12:47)
[2018-11-14] MEDS: Lidocaine 5% Patch TD SCH (12:47)
--- NOTE | 2018-11-14 17:51 | CT ---
Date of service: 11/14/2018 PROCEDURE: CT Abdomen and Pelvis with Oral contrast. HISTORY: Renal failure r/o obstruction COMPARISON: Compare comparison made with prior CT scan chest abdomen pelvis 11/03/2017. TECHNIQUE: Contiguous axial images of the abdomen and contiguous helical/transaxial sections of the abdomen pelvis performed without oral or intravenous contrast material. Additional 2D sagittal and coronal reformats generated. Radiation dose: Total exam DLP = 834.52 mGy-cm. This CT exam was performed using one or more of the following dose reduction techniques: Automated exposure control, adjustment of the mA and/or kV according to patient size, and/or use of iterative reconstruction technique. FINDINGS: LOWER THORAX: Heart size upper limits of normal/borderline enlarged. Questionable trace pericardial effusion or possibly some minimal pericardial thickening. Small hiatal hernia. Mild atelectasis and/or scarring changes seen in both lung bases including the middle lobe and lingular regions. LIVER: Liver exhibits normal size. No obvious hepatic mass collection or calcification. Portal and splenic veins are not well delineated on this noncontrast exam. GALLBLADDER AND BILE DUCTS: Gallbladder physiologically distended. No evidence of intraluminal gallbladder calculi. PANCREAS: Pancreas is not well delineated though appears atrophic and fatty replaced. SPLEEN: Spleen is upper limits of normal in size. No splenic mass collection or calcification. ADRENALS: No adrenal lesions. KIDNEYS AND URETERS: There are a diffuse infiltration changes seen in the perinephric fat bilaterally left greater than right nonspecific. Correlation with the urinalysis recommended to exclude the possibility of UTI. Low-attenuation presumed exophytic hyperdense cyst seen arising from the anterior cortex upper pole left kidney which measures approximately 6.2 x 6.1 cm in greatest dimension... There are several additional cysts 1 in the posterior cortex mid pole left kidney and to in the lower pole. Small calcific density in the posteromedial upper/mid pole collecting system could be vascular however non-obstructing hooper calculus not excluded.. There is a small cyst anteromedial cortex mid pole right and another slightly larger cyst seen in the posteromedial lower pole of the left kidney. Another small cyst posterior upper pole right kidney may be present as well kidney. BLADDER: The urinary bladder is collapsed about an in situ unclamped Sousa catheter. Area in the lumen of the urinary bladder felt to be secondary to recent instrumentation. Bladder wall thickening secondary to collapse however correlation with urinalysis recommended to exclude cystitis. REPRODUCTIVE: Unremarkable as visualized APPENDIX: Appendix not seen with any certainty however no obvious inflammatory changes right lower quadrant of the abdomen. BOWEL: Evaluation of the bowel is limited due to the lack of oral contrast material. The stomach is incompletely distended with thick-walled appearance. Visualized loops of small bowel exhibit normal contour and caliber. No evidence of acute mechanical small bowel obstruction. Air and stool present throughout the large bowel. Moderate amount of stool seen within the rectum which is distended consistent with fecal impaction. PERITONEUM: Unremarkable. No fluid collection. No free air. Tiny fat containing umbilical hernia and small bilateral fat containing inguinal hernias are present. LYMPH NODES: Unremarkable. No enlarged lymph nodes. VASCULATURE: Unremarkable. No aortic aneurysm. No aortic atherosclerotic calcification or mural plaque present. BONES: No fracture or destructive lesion. OTHER FINDINGS: None. IMPRESSION: There are bilateral renal cysts. Infiltration changes in the perinephric fat are present bilaterally left greater than right; rule out UTI. Urinary bladder is collapsed about an in situ unclamped Sousa catheter the bladder wall thickening and intraluminal urinary bladder air. Findings likely due to recent instrumentation with in situ catheter however the possibility of a UTI not excluded. Clinical correlation with urinalysis. Findings consistent with fecal impaction. Questionable trace pericardial effusion or possibly some minimal pericardial thickening. Mild bibasilar atelectasis/scarring changes as described.
--- NOTE | 2018-11-15 01:11 | PN ---
DATE: 11/14/2018 This is [facility] visit on the medical floor. For Dr. Pratt. SUBJECTIVE: The patient is an 88-year-old male, seen sitting up in bed with family at the bedside. Denying pain at this time after a fall, resulting in findings of an old chronic odontoid fracture with cervical collar now in place with the patient's thrombocythemia is not an issue at present; however, the patient is now developing acute kidney injury with rapid rise of creatinine values as will be listed. Renal consult with Dr. Tran was appreciated with the patient, otherwise in no acute distress, with no surgery. Plan as per Dr. Christensen and Dr. Ross, neurosurgeon unless the patient's pain should persist after approximately two weeks. OBJECTIVE/PHYSICAL EXAMINATION: VITAL SIGNS: Temperature 98.7, pulse 88, respirations 20, blood pressure 144/78, pulse ox 94%. HEENT: Unremarkable with tongue moist. NECK: With cervical collar. HEART: Regular rate. Has 1/6 systolic ejection murmur. LUNGS: Clear. ABDOMEN: Soft, nontender. EXTREMITIES: No edema. SKIN: Warm and dry. NEUROLOGIC: The patient has equal outpatient admitting clerk, wiggles toes freely. LABORATORY DATA: The patient's labs were done. White blood cell count of 12.9, hemoglobin of 12.8, hematocrit 39.3, platelet count of 258,000 with an INR 1.4 yesterday with a metabolic panel showing a potassium of 5.1 today with a BUN now of 63, increased from 39 yesterday; creatinine of 5.5 today, increased from 3.2 yesterday while the patient's admission creatinine the day prior was 1.3. Nonfasting glucose 304. CK of 848. MEDICATIONS: The patient's medications were reviewed. They include Ecotrin 81 mg, Colace, Flexeril 5 mg every 8 hours p.r.n., Flomax, folic acid, Hydrea 500 mg daily, Lidoderm patch, Lipitor, morphine p.r.n., Protonix 40 mg daily, Seroquel 12.5 at bedtime, and now normal saline at 100 mL an hour. The patient did have an EKG done yesterday, was read as sinus tachycardia, possible left atrial enlargement, inferior infarct, age indeterminate, abnormal EKG. ASSESSMENT: Assessment for this patient is that of acute kidney injury, status post fall with chronic fracture of odontoid process, essential thrombocythemia, urinary retention with Sousa catheter in situ, cervical radiculopathy, gastroesophageal reflux disease. PLAN: Plan for this patient after consultation with Dr. Pratt is to continue his present medical regimen with Dr. Tran, video games storywriter, addressing his acute kidney injury with CT scan of the abdomen and pelvis ordered for with further testing as indicated. We will monitor clinically with labs. This is a complex patient with a comprehensive medically necessary and appropriate visit carried out in excess of 25 minutes with the patient's family and his questions answered to their satisfaction. Germán Kelley MD
[2018-11-15] MEDS: Morphine 2 mg/ml ISec IVP PRN (02:56)
[2018-11-15 08:02] LABS: HEMOGLOBIN 12.3 g/dL (14.0-18.0); MEAN CELL VOLUME 108.2 fl (80.0-105.0); MEAN CORPUSCULAR HEMOGLOBIN 34.9 pg (25.0-35.0); MEAN CORPUSCULAR HGB CONC 32.3 g/dl (31.0-37.0); MEAN PLATELET VOLUME 9.2 fl (7.0-11.0); RBC 3.52 10^6/uL (3.5-6.1); RED CELL DISTRIBUTION WIDTH 12.9 % (11.5-14.5); WHITE BLOOD COUNT 10.8 10^3/uL (4.5-11.0)
[2018-11-15 08:38] LABS: CALCIUM 8.5 mg/dL (8.4-10.5)
[2018-11-15] MEDS ORDERED: Aritificial Tears (15ml) OU PRN (11:14)
[2018-11-15] MEDS: Lidocaine 5% Patch TD SCH (11:23)
[2018-11-15] MEDS: Pantoprazole 40 mg EC Tab PO SCH (11:24)
[2018-11-15] MEDS: Sodium Chloride 0.9% 1,000 ML IV SCH (11:25)
[2018-11-15] MEDS ORDERED: Bisacodyl 5mg EC Tab PO ONE (12:41)
--- NOTE | 2018-11-15 12:43 | CP.PCM.PN ---
Subjective - Date & Time of Evaluation Date of Evaluation: 11/15/18 Time of Evaluation: 12:42 - Subjective Subjective: Nephrology Consultation Note: Assessment: Stable Acute Kidney Injury (N17.9) likely due to urine retention Hypertensive Chronic Kidney Disease (I12.9) Chronic Kidney Disease (N18.3) Stage 3 with ? 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 anticipate renal recovery soon as obstruction is relieved with catheter. Hypertension control with meds as ordered. Maintain hemodynamics stable. Avoid hypotension. Patient not on ACEI/ARB due to recent BELLO Monitor Input/Output, daily weights and renal function with basic metabolic panel continue with [facility] urology eval. agree with flomax dose of dulcolax today Check urine analysis, spot protein/creatinine, albumin/creatinine ratio, urine cx/sen Check for 25-OH vitamin D, iPTH, phosphorus level. renal/bladder/prostate imaging Dose meds/antibiotics for reduced GFR. Avoid fleets enema/magnesium based laxatives. Avoid nephrotoxins/NSAIDs/ iodinated contrast (unless needed emergently) Glycemic control Further work up/management as per primary team Thanks for allowing me to participate in care of your patient. Will follow patient with you. Please call if any Qs. had d/w team and daughter Dr Kade Tran Office: [phone] Chief Complaint; fall Reason for consult: Acute Kidney Injury HPI: Pt is a 88 M with hx of hypertension (years) essential thrombocythemia GERD CAD cervical radiculopathy presented with complaints of fall and had chronic odontoid fracture. Denies OTC/herbal meds or NSAIDs No recent iodinated contrast exposure. Noted obvious episodes of low BP (90s). renal consult for BELLO which was worsenning. baseline CKD with cr 1.3. pt/daughter not aware about kidney disease in past pt was in urine retention s/p rubio 1200 mL UOP 11/14/18 ROS: says feel half and half. has constipation Cardiovascular: No chest pain. Pulmonary: No shortness of breath Gastrointestinal: denies abdominal pain No nausea. No vomiting. Genitourinary: No pain while urinating. Denies blood in urine. denies symptoms of BPH earlier All other negative except as mentioned in HPI Physical Examination: General Appearance: Comfortable, in no acute respiratory distress, co-operative . Vitals reviewed and noted as below Head; Atraumatic, normocephalic ENT: no ulcers no thrush. Tongue is midline. Oropharynx: no rash or ulcers. EYES: Pupils are equal, round and reactive to light accommodation. Eye muscles and extraocular movement intact. Sclera is anicteric. Neck; supple no lymphadenopathy, no thyromegaly or bruit. CERVICAL COLLAR + Lungs: Normal respiratory rate/effort. Breath sounds bilateral equal and clear Heart: Increased rate. s1s2 normal. No rub or gallop. Extremities: no edema. No varicose veins Neurological: Patient is alert, awake and oriented to person, place and time. No focal deficit. Strength bilateral appropriate and equal Skin: Warm and dry. Normal turgor. No rash. Palpitation: Normal elasticity for age Abdomen: Abdomen is soft. Bowel sounds +. There is mild LLQ abdominal tenderness, no guarding/rigidity no organomegaly Psych: normal insight and normal affect/mood MSK: no joint tenderness or swelling. Digits and nails normal, no deformity : kidney or bladder not palpable. has rubio. has suprapubic fullness Labs/imaging reviewed. Past medical history, past surgical history, family history, social history, allergy reviewed and noted as below Family hx: no hx of CKD. Rest non-contributory Objective - Vital Signs/Intake and Output Vital Signs (last 24 hours): Temp Pulse Resp BP Pulse Ox 99.2 F 112 H 20 160/90 H 100 11/15/18 07:00 11/15/18 07:00 11/15/18 06:00 11/15/18 07:00 11/15/18 07:00 Intake and Output: 11/15/18 11/15/18 06:59 18:59 Intake Total 240 Output Total 1000 Balance -760 - Medications Medications: Current Medications Artificial Tears (Artificial Tears) 0 ml OU Q3 PRN PRN Reason: Dry eyes Aspirin (Aspirin Chewable) 81 mg PO DAILY [facility] Last Admin: 11/15/18 11:23 Dose: 81 mg Atorvastatin Calcium (Lipitor) 20 mg PO DAILY [facility] Last Admin: 11/15/18 11:24 Dose: 20 mg Cyclobenzaprine HCl (Flexeril) 5 mg PO Q8 PRN PRN Reason: Muscle spasm Last Admin: 11/15/18 11:24 Dose: 5 mg Docusate Sodium (Colace) 100 mg PO BID [facility] Last Admin: 11/15/18 11:24 Dose: 100 mg Folic Acid (Folic Acid) 1 mg PO DAILY [facility] Last Admin: 11/15/18 11:23 Dose: 1 mg Hydroxyurea (Hydrea) 500 mg PO DAILY [facility] Last Admin: 11/15/18 11:29 Dose: 500 mg Sodium Chloride (Sodium Chloride 0.9%) 1,000 mls @ 100 mls/hr IV .Q10H [facility] Last Admin: 11/15/18 11:25 Dose: 100 mls/hr Lidocaine (Lidoderm) 1 ea TD DAILY [facility] Last Admin: 11/15/18 11:23 Dose: 1 ea Pantoprazole Sodium (Protonix Ec Tab) 40 mg PO DAILY [facility] Last Admin: 11/15/18 11:24 Dose: 40 mg Quetiapine Fumarate (Seroquel) 12.5 mg PO HS [facility]; Protocol Last Admin: 11/14/18 22:05 Dose: 12.5 mg Tamsulosin HCl (Flomax) 0.4 mg PO DAILY [facility] Last Admin: 11/15/18 11:24 Dose: 0.4 mg - Labs Labs: 11/15/18 07:00 11/15/18 07:15 PT 15.5 SECONDS (9.4-12.5) H 11/13/18 15:30 INR 1.40 11/13/18 15:30 APTT 31.8 Seconds (26.9-38.3) 11/13/18 15:30
--- NOTE | 2018-11-15 12:58 | RAD ---
Date of service: 11/15/2018 HISTORY: fever COMPARISON: Comparison chest 01/06/2018. FINDINGS: LUNGS: Mild bibasilar atelectasis and/or scarring left greater than right PLEURA: No significant pleural effusion identified, no pneumothorax apparent. CARDIOVASCULAR: Mild aortic atherosclerotic calcification present. Heart size unchanged. No pulmonary vascular congestion. OSSEOUS STRUCTURES: Degenerative osteoarthritis both shoulder girdles. Multilevel degenerative spondylosis of the thoracic spine VISUALIZED UPPER ABDOMEN: Normal. OTHER FINDINGS: None. IMPRESSION: Mild bibasilar atelectasis and or scarring left greater than right
--- NOTE | 2018-11-15 16:25 | PN ---
DATE: 11/15/2018 This is [facility] on the medical floor. SUBJECTIVE: The patient is an 88-year-old male. He is sitting up in bed with family at the bedside, reporting irritation to his left eye with the patient otherwise in no acute distress with his acute kidney injury responding to fluids as per Dr. Ro, drapery cutter machine, with good effect with the creatinine repeated today at 2. He has not been out of bed as he does have significant findings after a fall with a cervical collar on. This will be as per domestic travel consultant's recommendations and his attending doctor. However, he lives at home alone with recommendations for reconditioning versus subacute rehab as per attending doctor. PHYSICAL EXAMINATION: VITAL SIGNS: Temperature 99.2, pulse 112, respirations 20, blood pressure 160/90, pulse ox 100%. HEENT: Minimal conjunctival injection on the left after rubbing left eye. Tongue is moist. Midline neck with cervical collar on. HEART: Tachy rate, regular rhythm. Faint 1/6 systolic ejection murmur. LUNGS: Clear. ABDOMEN: Soft, nontender. EXTREMITIES: No edema. Equal paint sprayer sandblaster. SKIN: Warm and dry. NEUROLOGIC: Awake and alert, although the patient's daughter reports that he was somewhat confused earlier today as the patient has not been out of bed. He has had been bedbound since hospitalization. LABORATORY DATA: The patient's labs were done. White blood cell count of 10.8, hemoglobin of 12.3, hematocrit of 38.1, platelet count of 267,000 with a metabolic panel showing a BUN of 46 down from 63 yesterday, creatinine 2 down from 5.5 yesterday. Nonfasting glucose of 113. Serum osmolality 304. ASSESSMENT: Acute kidney injury, now improving, status post fall with chronic fracture of odontoid, essential thrombocythemia history, urinary retention with Sousa catheter, cervical radiculopathy, gastroesophageal reflux disease, dry eyes. PLAN: Continue present medical regimen with consideration for subacute rehab versus transitional care for reconditioning as per his attending doctor. We will offer Hypotears or Artificial Tears in the interim with labs to be monitored in the morning and out of bed only as per domestic travel consultant's recommendation due to his cervical problem with collar still on. This is a complex patient with a comprehensive medical necessity and appropriate visit carried out in excess of 20 minutes with the patient and his daughters' questions answered to their satisfaction. Germán Kelley MD
--- NOTE | 2018-11-15 19:50 | PN ---
SUBJECTIVE: The patient was seen and examined at bedside on the general medical holm. He had a fever of 101.4 overnight but denied cough, nausea, vomiting or diarrhea. This morning he feels ok and offers no complaints. PHYSICAL EXAMINATION: VITAL SIGNS: Temperature 101.4, pulse 112, blood pressure 160/90, respiratory rate 20, oxygen saturation 100% on room air. GENERAL: No apparent distress. HEENT: PERRL, EOMI. No scleral icterus. No conjunctival pallor. NECK: Soft C-spine collar in place. LUNGS: Clear to auscultation. CARDIOVASCULAR: Tachycardic. Normal S1, S2. Grade II/ murmur to LLSB. ABDOMEN: Normoactive bowel sounds, soft, nontender, nondistended. GENITOURINARY: Sousa catheter in place draining yellow urine. EXTREMITIES: No edema. NEUROLOGIC: Awake, alert and oriented x 3. No focal motor deficits. LABORATORY DATA: WBC 10.8, hemoglobin 12, hematocrit 38, platelets 267. Sodium 139, potassium 4.3, chloride 107, bicarb 24, BUN 46, creatinine 2, glucose 113. ASSESSMENT: The patient is an 88-year-old man with multiple medical comorbidities including cervical radiculopathy who presented s/p mechanical fall with resultant head and neck trauma and was admitted for neurosurgical evaluation of type 2 odontoid fracture and management of intractable pain whose hospital course was complicated by development of BELLO and SIRS syndrome. PLAN: 1. SIRS syndrome, consider etiology secondary to genitourinary source. We will remove the Sousa catheter for voiding trial. We will start Tylenol 650 mg p.o. q. 6 hours p.r.n. fever and Ceftriaxone 1 g IV daily. We will continue to monitor for fever and leukocytosis. 2. BELLO, etiology likely secondary to obstructive uropathy, resolving. As above, we will discontinue Sousa catheter for voiding trial. Continue Flomax 0.4 mg p.o. daily. Input from Dr. Tran noted. Continue to monitor strict I&O's, renally dose medications and avoid nephrotoxins. 3. Type 2 odontoid fracture. Input from Dr. Christensen noted. No need for acute surgical intervention. Continue with soft C-spine collar. Continue Tramadol 50 mg p.o. q. 8 hours p.r.n. pain and Flexeril 5 mg p.o. q. 8 hours p.r.n. spasm. 4. Hypertension. BP is slightly elevated which may be secondary to pain. Continue monitor hemodynamics and adjust antihypertensives as needed. 5. Hyperlipidemia. Continue Lipitor 20 mg p.o. daily 6. CAD. Continue Aspirin 81 mg p.o. daily and Lipitor 20 mg p.o. daily. 7. Cervical radiculopathy. Continue with care as above. 8. GERD. Continue Protonix 40 mg p.o. daily. 9. Essential thrombocythemia. Continue Folic acid 1 mg p.o. daily and Hydroxyurea 500 mg p.o. daily. 10. Prophylaxis. Continue Protonix for GI prophylaxis and SCDs for DVT prophylaxis. CODE STATUS: Full code. Claude Rayo MD MTDD
[2018-11-16 07:19] LABS: HEMOGLOBIN 11.6 g/dL (14.0-18.0); MEAN CELL VOLUME 107.8 fl (80.0-105.0); MEAN CORPUSCULAR HEMOGLOBIN 34.6 pg (25.0-35.0); MEAN CORPUSCULAR HGB CONC 32.1 g/dl (31.0-37.0); MEAN PLATELET VOLUME 9.1 fl (7.0-11.0); RBC 3.35 10^6/uL (3.5-6.1); RED CELL DISTRIBUTION WIDTH 12.8 % (11.5-14.5); WHITE BLOOD COUNT 10.4 10^3/uL (4.5-11.0)
[2018-11-16 07:25] LABS: CALCIUM 8.8 mg/dL (8.4-10.5)
--- NOTE | 2018-11-16 08:27 | CP.PCM.PN ---
Subjective - Date & Time of Evaluation Date of Evaluation: 11/16/18 Time of Evaluation: 08:25 - Subjective Subjective: PGY-2 heme/onc progress note for Dr Pratt. Patient had a fever yesterday evening of 101.3 - tylenol 650mg was given. Patient with neck collar. C/o pain with movement. Did not offer any other complaints. Objective - Vital Signs/Intake and Output Vital Signs (last 24 hours): Temp Pulse Resp BP Pulse Ox 97.8 F 92 H 18 125/65 98 11/15/18 22:00 11/15/18 22:00 11/15/18 22:00 11/15/18 22:00 11/15/18 22:00 Intake and Output: 11/16/18 11/16/18 06:59 18:59 Intake Total 180 Output Total 300 Balance -120 - Medications Medications: Current Medications Acetaminophen (Tylenol 325mg Tab) 650 mg PO Q6H PRN PRN Reason: Fever >100.4 F Last Admin: 11/15/18 19:02 Dose: 650 mg Artificial Tears (Artificial Tears) 0 ml OU Q3 PRN PRN Reason: Dry eyes Aspirin (Aspirin Chewable) 81 mg PO DAILY [facility] Last Admin: 11/15/18 11:23 Dose: 81 mg Atorvastatin Calcium (Lipitor) 20 mg PO DAILY [facility] Last Admin: 11/15/18 11:24 Dose: 20 mg Cyclobenzaprine HCl (Flexeril) 5 mg PO Q8 PRN PRN Reason: Muscle spasm Last Admin: 11/15/18 11:24 Dose: 5 mg Docusate Sodium (Colace) 100 mg PO BID [facility] Last Admin: 11/15/18 18:25 Dose: 100 mg Folic Acid (Folic Acid) 1 mg PO DAILY [facility] Last Admin: 11/15/18 11:23 Dose: 1 mg Hydroxyurea (Hydrea) 500 mg PO DAILY [facility] Last Admin: 11/15/18 11:29 Dose: 500 mg Ceftriaxone Sodium (Rocephin 1 Gram Ivpb) 1 gm in 100 mls @ 100 mls/hr IVPB DAILY [facility]; Protocol Lidocaine (Lidoderm) 1 ea TD DAILY [facility] Last Admin: 11/15/18 11:23 Dose: 1 ea Pantoprazole Sodium (Protonix Ec Tab) 40 mg PO DAILY [facility] Last Admin: 11/15/18 11:24 Dose: 40 mg Quetiapine Fumarate (Seroquel) 12.5 mg PO HS [facility]; Protocol Last Admin: 11/15/18 21:53 Dose: 12.5 mg Tamsulosin HCl (Flomax) 0.4 mg PO DAILY [facility] Last Admin: 11/15/18 11:24 Dose: 0.4 mg Tramadol HCl (Ultram) 50 mg PO TID [facility] Last Admin: 11/15/18 18:25 Dose: 50 mg Zolpidem Tartrate (Ambien) 5 mg PO HS PRN; Protocol PRN Reason: Insomnia Last Admin: 11/15/18 21:53 Dose: 5 mg - Labs Labs: 11/16/18 06:25 11/16/18 06:25 PT 15.5 SECONDS (9.4-12.5) H 11/13/18 15:30 INR 1.40 11/13/18 15:30 APTT 31.8 Seconds (26.9-38.3) 11/13/18 15:30 - Additional Findings Additional findings: - Constitutional Appears: Non-toxic, No Acute Distress - Head Exam Head Exam: limited range of motion 2/2 pain - with neck collar - ENT Exam ENT Exam: Mucous Membranes Moist, Normal Oropharynx - Neck Exam Neck exam: Negative for: Lymphadenopathy, Meningismus - Respiratory Exam Respiratory Exam: Decreased Breath Sounds. absent: Rales, Rhonchi - Cardiovascular Exam Cardiovascular Exam: +S1, +S2 - GI/Abdominal Exam GI & Abdominal Exam: Soft. absent: Tenderness Assessment and Plan - Assessment and Plan (Free Text) Plan: Mr Culver is a 88 year old male with a PMHx of HTN, HLD, CAD, cervical radiculopathy, GERD, and essential thrombocythemia. We have been consulted for his history of essential thrombocythemia for which he takes folic acid 1mg po qd and hydroxyurea 500mg po qd. He presented s/p mechanical fall with resultant head and shoulder trauma: Essential Thrombocytemia -diagnosed many years ago -platelet level normal -continue folic acid 1mg po qd -continue hydroxyurea 500mg po qd Seen and discussed with Dr Pratt
[2018-11-16] MEDS: cefTRIAXone 1 gm 1 GM/100 ML BAG IVPB SCH (09:30)
[2018-11-16] MEDS: Lidocaine 5% Patch TD SCH (09:32)
[2018-11-16] MEDS: Pantoprazole 40 mg EC Tab PO SCH (09:32)
--- NOTE | 2018-11-16 10:50 | PN ---
SUBJECTIVE: The patient was seen and examined at bedside on the general medical holm. No acute events overnight. This morning he feels well and offers no complaints. OBJECTIVE: VITAL SIGNS: Tm 101.3, Tc 97.8, pulse 92, blood pressure 125/65, respiratory rate 18, oxygen saturation 98% on room air. GENERAL: No apparent distress. HEENT: PERRL, EOMI. No scleral icterus. No conjunctival pallor. NECK: Soft C-spine collar in place. LUNGS: Clear to auscultation. CARDIOVASCULAR: Regular rate and rhythm. Normal S1, S2. Grade II/ murmur to LLSB. ABDOMEN: Normoactive bowel sounds. Soft, nontender, nondistended. GENITOURINARY:. Sousa catheter in place draining yellow urine. EXTREMITIES: No edema. NEUROLOGIC: Awake, alert and oriented x 3. No focal motor deficits. LABORATORY DATA: WBC 10.4, hemoglobin 1.6, hematocrit 36, platelets 262. Sodium 139, potassium 4.6, chloride 107, bicarb 27, BUN 39, creatinine 1.5, glucose 118. ASSESSMENT: The patient is an 88-year-old man with multiple medical comorbidities including cervical radiculopathy who presented s/p mechanical fall with resultant head and neck trauma and was admitted for neurosurgical evaluation of type 2 odontoid fracture and management of intractable pain whose hospital course was complicated by development of BELLO and SIRS syndrome. PLAN: 1. SIRS syndrome, consider etiology secondary to genitourinary source. We will speak with the nursing staff regarding removal of Sousa catheter for spontaneous voiding trial. Continue Tylenol 650 mg p.o. q. 6 hours p.r.n. fever and Ceftriaxone 1 g IV daily. Continue to monitor for fever and leukocytosis. 2. BELLO, etiology likely secondary to obstructive uropathy, resolving. Input from Dr. Tran noted. Continue Flomax at 0.4 mg p.o.daily. As above, we will discontinue Sousa catheter for voiding trial. Continue to monitor strict I&O's, renally dose medications and avoid nephrotoxins. 3. Type 2 odontoid fracture. Input from Dr. Christensen are noted. No need for acute surgical intervention. Continue with soft C-spine collar. Continue Tramadol 50 mg p.o. q. 8 hours p.r.n. pain and Flexeril 5 mg p.o. q. 8 hours p.r.n. spasm. 4. Hypertension. BP stable off antihypertensives. We will continue to monitor and resume medications as needed 5. Hyperlipidemia. Continue Lipitor 20 mg p.o. daily 6. CAD. Continue Aspirin 81 mg p.o. daily and Lipitor 20 mg p.o. daily. 7. Cervical radiculopathy. Continue with care as above. 8. GERD. Continue Protonix 40 mg p.o. daily. 9. Essential thrombocythemia. Continue Folic acid 1 mg p.o. daily and Hydroxyurea 500 mg p.o. daily 10. Prophylaxis. Continue Protonix for GI prophylaxis and SCDs for DVT prophylaxis. CODE STATUS: Full Code. Claude Rayo MD MTDAshley
--- NOTE | 2018-11-16 11:09 | CP.PCM.APN ---
Subjective - Date & Time of Evaluation Date of Evaluation: 11/16/18 Time of Evaluation: 10:50 - Subjective Subjective: pt seen getting am care at bedside Review of Systems - Review of Systems All systems: reviewed and no additional remarkable complaints except Objective - Vital Signs/Intake and Output Vital Signs (last 24 hours): Temp Pulse Resp BP Pulse Ox 98 F 107 H 18 111/66 96 11/16/18 06:00 11/16/18 06:00 11/16/18 06:00 11/16/18 06:00 11/16/18 06:00 Intake and Output: 11/16/18 11/16/18 06:59 18:59 Intake Total 180 Output Total 300 Balance -120 - Medications Medications: Current Medications Acetaminophen (Tylenol 325mg Tab) 650 mg PO Q6H PRN PRN Reason: Fever >100.4 F Last Admin: 11/15/18 19:02 Dose: 650 mg Artificial Tears (Artificial Tears) 0 ml OU Q3 PRN PRN Reason: Dry eyes Aspirin (Aspirin Chewable) 81 mg PO DAILY [facility] Last Admin: 11/16/18 09:31 Dose: 81 mg Atorvastatin Calcium (Lipitor) 20 mg PO DAILY [facility] Last Admin: 11/16/18 09:32 Dose: 20 mg Cyclobenzaprine HCl (Flexeril) 5 mg PO Q8 PRN PRN Reason: Muscle spasm Last Admin: 11/16/18 09:31 Dose: 5 mg Docusate Sodium (Colace) 100 mg PO BID [facility] Last Admin: 11/16/18 09:32 Dose: 100 mg Folic Acid (Folic Acid) 1 mg PO DAILY [facility] Last Admin: 11/16/18 09:32 Dose: 1 mg Hydroxyurea (Hydrea) 500 mg PO DAILY [facility] Last Admin: 11/15/18 11:29 Dose: 500 mg Ceftriaxone Sodium (Rocephin 1 Gram Ivpb) 1 gm in 100 mls @ 100 mls/hr IVPB DAILY [facility]; Protocol Last Admin: 11/16/18 09:30 Dose: 100 mls/hr Lidocaine (Lidoderm) 1 ea TD DAILY [facility] Last Admin: 11/16/18 09:32 Dose: 1 ea Pantoprazole Sodium (Protonix Ec Tab) 40 mg PO DAILY [facility] Last Admin: 11/16/18 09:32 Dose: 40 mg Quetiapine Fumarate (Seroquel) 12.5 mg PO HS [facility]; Protocol Last Admin: 11/15/18 21:53 Dose: 12.5 mg Tamsulosin HCl (Flomax) 0.4 mg PO DAILY [facility] Last Admin: 11/16/18 09:32 Dose: 0.4 mg Tramadol HCl (Ultram) 50 mg PO TID [facility] Last Admin: 11/16/18 09:30 Dose: 50 mg Zolpidem Tartrate (Ambien) 5 mg PO HS PRN; Protocol PRN Reason: Insomnia Last Admin: 11/15/18 21:53 Dose: 5 mg - Labs Labs: 11/16/18 06:25 11/16/18 06:25 PT 15.5 SECONDS (9.4-12.5) H 11/13/18 15:30 INR 1.40 11/13/18 15:30 APTT 31.8 Seconds (26.9-38.3) 11/13/18 15:30 - Constitutional Appears: No Acute Distress - Head Exam Head Exam: NORMOCEPHALIC Additional comments: cervical collar intact - Neck Exam Neck Exam: Tenderness - Respiratory Exam Respiratory Exam: Decreased Breath Sounds, NORMAL BREATHING PATTERN - Cardiovascular Exam Cardiovascular Exam: +S1, +S2 - GI/Abdominal Exam GI & Abdominal Exam: Normal Bowel Sounds - Extremities Exam Extremities Exam: Normal Capillary Refill - Neurological Exam Neurological Exam: Alert, Awake - Skin Skin Exam: Dry, Intact Assessment and Plan - Assessment and Plan (Free Text) Plan: t is a 88 M with hx of hypertension, essential thrombocythemia, GERD, CAD, cervical radiculopathy presented with complaints of fall and had chronic odontoid fracture there was plan for surgicl intervention with Dr Christensen today 11/16 which was cancelled as pt developed acute kidney injury and nephrology was consulted for mgmt #odontoid fracture surgery cancelled, no acute intervention as noted soft cervical collar #BELLO secondary to obstructive uropathy nephrology consult recommendations noted rubio in place flomax therapy bun/cr improving physical therapy eval ordered Will continue to follow Ami Dickens . BPCI/TIC - BPCIA/TIC Educated pt/family on BPCIA/CIR/Med to Bed Programs: N/A Flyers given, including [facility] Beneficiary letter: N/A Pt/family verbalized understanding & agreed to program: N/A
--- NOTE | 2018-11-16 11:25 | CP.PCM.PN ---
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 mg proteinuria (R80.9) likely due to HTN/age essential thrombocythemia GERD CAD cervical radiculopathy s/p fall, chronic odontoid fracture mild rhabdomyolysis fecal impaction sepsis Plan No acute need for renal replacement therapy at this time. anticipate renal recovery soon as obstruction is relieved with catheter. Hypertension control with meds as ordered. Maintain hemodynamics stable. Avoid hypotension. Patient not on ACEI/ARB due to recent BELLO Monitor Input/Output, daily weights and renal function with basic metabolic panel continue with IVF urology eval. agree with flomax started on IV antibiotics Check urine analysis, spot protein/creatinine, albumin/creatinine ratio, urine cx/sen Check for 25-OH vitamin D, iPTH, phosphorus level. renal/bladder/prostate imaging Dose meds/antibiotics for reduced GFR. Avoid fleets enema/magnesium based laxatives. Avoid nephrotoxins/NSAIDs/ iodinated contrast (unless needed emergently) Glycemic control Further work up/management as per primary team Thanks for allowing me to participate in care of your patient. Will follow patient with you. Please call if any Qs. had d/w team and daughter Dr Kade Tran Office: [phone] Chief Complaint; fall Reason for consult: Acute Kidney Injury HPI: Pt is a 88 M with hx of hypertension (years) essential thrombocythemia GERD CAD cervical radiculopathy presented with complaints of fall and had chronic odontoid fracture. Denies OTC/herbal meds or NSAIDs No recent iodinated contrast exposure. Noted obvious episodes of low BP (90s). renal consult for BELLO which was worsenning. baseline CKD with cr 1.3. pt/daughter not aware about kidney disease in past pt was in urine retention s/p rubio 1200 mL UOP 11/14/18 ROS: says don't feel too well Cardiovascular: No chest pain. Pulmonary: No shortness of breath Gastrointestinal: denies abdominal pain No nausea. No vomiting. Genitourinary: No pain while urinating. Denies blood in urine. denies symptoms of BPH earlier All other negative except as mentioned in HPI Physical Examination: General Appearance: Comfortable, in no acute respiratory distress, co-operative . Vitals reviewed and noted as below Head; Atraumatic, normocephalic ENT: no ulcers no thrush. Tongue is midline. Oropharynx: no rash or ulcers. EYES: Pupils are equal, round and reactive to light accommodation. Eye muscles and extraocular movement intact. Sclera is anicteric. Neck; supple no lymphadenopathy, no thyromegaly or bruit. CERVICAL COLLAR + Lungs: Normal respiratory rate/effort. Breath sounds bilateral equal and clear Heart: Increased rate. s1s2 normal. No rub or gallop. Extremities: no edema. No varicose veins Neurological: Patient is alert, awake and oriented to person, place and time. No focal deficit. Strength bilateral appropriate and equal Skin: Warm and dry. Normal turgor. No rash. Palpitation: Normal elasticity for age Abdomen: Abdomen is soft. Bowel sounds +. There is mild LLQ abdominal tenderness, no guarding/rigidity no organomegaly Psych: normal insight and normal affect/mood MSK: no joint tenderness or swelling. Digits and nails normal, no deformity : kidney or bladder not palpable. has rubio. has suprapubic fullness Labs/imaging reviewed. Past medical history, past surgical history, family history, social history, allergy reviewed and noted as below Family hx: no hx of CKD. Rest non-contributory Objective - Vital Signs/Intake and Output Vital Signs (last 24 hours): Temp Pulse Resp BP Pulse Ox 98 F 107 H 18 111/66 96 11/16/18 06:00 11/16/18 06:00 11/16/18 06:00 11/16/18 06:00 11/16/18 06:00 Intake and Output: 11/16/18 11/16/18 06:59 18:59 Intake Total 180 Output Total 300 Balance -120 - Medications Medications: Current Medications Acetaminophen (Tylenol 325mg Tab) 650 mg PO Q6H PRN PRN Reason: Fever >100.4 F Last Admin: 11/15/18 19:02 Dose: 650 mg Artificial Tears (Artificial Tears) 0 ml OU Q3 PRN PRN Reason: Dry eyes Aspirin (Aspirin Chewable) 81 mg PO DAILY [facility] Last Admin: 11/16/18 09:31 Dose: 81 mg Atorvastatin Calcium (Lipitor) 20 mg PO DAILY [facility] Last Admin: 11/16/18 09:32 Dose: 20 mg Cyclobenzaprine HCl (Flexeril) 5 mg PO Q8 PRN PRN Reason: Muscle spasm Last Admin: 11/16/18 09:31 Dose: 5 mg Docusate Sodium (Colace) 100 mg PO BID [facility] Last Admin: 11/16/18 09:32 Dose: 100 mg Folic Acid (Folic Acid) 1 mg PO DAILY [facility] Last Admin: 11/16/18 09:32 Dose: 1 mg Hydroxyurea (Hydrea) 500 mg PO DAILY [facility] Last Admin: 11/15/18 11:29 Dose: 500 mg Ceftriaxone Sodium (Rocephin 1 Gram Ivpb) 1 gm in 100 mls @ 100 mls/hr IVPB DAILY [facility]; Protocol Last Admin: 11/16/18 09:30 Dose: 100 mls/hr Lidocaine (Lidoderm) 1 ea TD DAILY [facility] Last Admin: 11/16/18 09:32 Dose: 1 ea Pantoprazole Sodium (Protonix Ec Tab) 40 mg PO DAILY [facility] Last Admin: 11/16/18 09:32 Dose: 40 mg Quetiapine Fumarate (Seroquel) 12.5 mg PO HS [facility]; Protocol Last Admin: 11/15/18 21:53 Dose: 12.5 mg Tamsulosin HCl (Flomax) 0.4 mg PO DAILY [facility] Last Admin: 11/16/18 09:32 Dose: 0.4 mg Tramadol HCl (Ultram) 50 mg PO TID [facility] Last Admin: 11/16/18 09:30 Dose: 50 mg Zolpidem Tartrate (Ambien) 5 mg PO HS PRN; Protocol PRN Reason: Insomnia Last Admin: 11/15/18 21:53 Dose: 5 mg - Labs Labs: 11/16/18 06:25 11/16/18 06:25 PT 15.5 SECONDS (9.4-12.5) H 11/13/18 15:30 INR 1.40 11/13/18 15:30 APTT 31.8 Seconds (26.9-38.3) 11/13/18 15:30
[2018-11-16 14:09] LABS: OSMOLALITY,URINE 666 mosm/kg (300-1000)
[2018-11-17 07:18] LABS: HEMOGLOBIN 11.6 g/dL (14.0-18.0); MEAN CELL VOLUME 108.1 fl (80.0-105.0); MEAN CORPUSCULAR HEMOGLOBIN 34.7 pg (25.0-35.0); MEAN CORPUSCULAR HGB CONC 32.1 g/dl (31.0-37.0); MEAN PLATELET VOLUME 9.1 fl (7.0-11.0); RBC 3.34 10^6/uL (3.5-6.1); RED CELL DISTRIBUTION WIDTH 12.5 % (11.5-14.5); WHITE BLOOD COUNT 9.5 10^3/uL (4.5-11.0)
[2018-11-17 08:04] LABS: BLOOD UREA NITROGEN 35 mg/dL (7-21); CALCIUM 8.9 mg/dL (8.4-10.5); GFR NON-AFRICAN AMERICAN 52
--- NOTE | 2018-11-17 09:42 | PN ---
SUBJECTIVE: The patient was seen and examined at bedside on the general medical [facility]. No acute events overnight. He remains afebrile and hemodynamically stable. This morning he feels well and offers no complaints. He is pending removal of his Sousa catheter and PT reevaluation. OBJECTIVE: VITAL SIGNS: Temperature 97.8, pulse 82, blood pressure 130/74, respiratory rate 18 and oxygen saturation 97% on room air. GENERAL: No apparent distress. HEENT: PERRL, EOMI. No scleral icterus. No conjunctival pallor. NECK: Soft C-spine collar in place. LUNGS: Clear to auscultation. CARDIOVASCULAR: Regular rate and rhythm. Normal S1 and S2. Grade II/ murmur to LLSB. ABDOMEN: Normoactive bowel sounds, soft, nontender and nondistended. GENITOURINARY: Sousa catheter in place draining yellow urine. EXTREMITIES: No edema. NEUROLOGIC: Awake, alert and oriented x 3. No focal motor deficits. LABORATORY DATA: WBC 9.5, hemoglobin 11.6, hematocrit 36 and platelets 315. Sodium 138, potassium 4.1, chloride 105, bicarb 27, BUN 35, creatinine 1.3 and glucose 116. ASSESSMENT: The patient is an 88-year-old man with multiple medical comorbidities including cervical radiculopathy who presented s/p mechanical fall with resultant head and neck trauma and was admitted for neurosurgical evaluation of type 2 odontoid fracture and management of intractable pain whose hospital course was complicated by development of BELLO and SIRS syndrome. PLAN: 1. SIRS syndrome, consider etiology secondary to genitourinary source, resolved. The patient is on Ceftriaxone 1 g IV daily and is scheduled to complete a 7 day course and antibiotics (today is day #2 of 7). Continue Tylenol 650 mg p.o. q. 6 hours p.r.n. fever. Continue to monitor for fever and leukocytosis. 2. BELLO, etiology secondary to obstructive uropathy, resolved. Input from Dr. Tran noted. Continue Flomax 0.4 mg p.o. daily. We will discontinue Sousa catheter for voiding trial. Continue to monitor strict I&O's. 3. Type 2 odontoid fracture. Input from Dr. Christensen noted. No need for acute neurosurgical intervention. Continue with soft C-spine collar. Continue Tramadol 50 mg p.o. q. 8 hours p.r.n. pain and Flexeril 5 mg p.o. q. 8 hours p.r.n. spasm. 4. Hypertension. BP stable off antihypertensives. 5. Hyperlipidemia. Continue Lipitor 20 mg p.o. daily. 6. CAD. Continue Aspirin 81 mg p.o. daily and Lipitor 20 mg p.o. daily. 7. Cervical radiculopathy. Continue care as above. 8. GERD. Continue Protonix 40 mg p.o. daily. 9. Essential thrombocythemia. Continue Folic acid 1 mg p.o. daily and Hydroxyurea 500 mg p.o. daily. 10. Prophylaxis. Continue Protonix for GI prophylaxis and SCDs for DVT prophylaxis. CODE STATUS: Full code. Claude Rayo MD [email or web address]
[2018-11-17] MEDS: Pantoprazole 40 mg EC Tab PO SCH (10:10)
[2018-11-17] MEDS: cefTRIAXone 1 gm 1 GM/100 ML BAG IVPB SCH (10:11)
[2018-11-17] MEDS: Lidocaine 5% Patch TD SCH (10:14)
--- NOTE | 2018-11-17 11:32 | CP.PCM.PCO ---
Physician Communication Note - Physician Communication Note Physician Communication Note: Per neurosx, no planned surgery. Pending physical therapy eval.
--- NOTE | 2018-11-17 12:41 | CP.PCM.PN ---
Subjective - Date & Time of Evaluation Date of Evaluation: 11/17/18 Time of Evaluation: 12:40 - Subjective Subjective: Nephrology Consultation Note: Assessment: Stable Acute Kidney Injury (N17.9) likely due to urine retention Hypertensive Chronic Kidney Disease (I12.9) Chronic Kidney Disease (N18.3) Stage 3 with ? 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 BELLO improved well Hypertension control with meds as ordered. Maintain hemodynamics stable. Avoid hypotension. Patient not on ACEI/ARB due to recent BELLO Monitor Input/Output, daily weights and renal function with basic metabolic panel urology eval. agree with flomax monitor for urine retention after rubio removal. Check urine analysis, spot protein/creatinine, albumin/creatinine ratio, urine cx/sen Check for 25-OH vitamin D, iPTH, phosphorus level. renal/bladder/prostate imaging Dose meds/antibiotics for reduced GFR. Avoid fleets enema/magnesium based laxatives. Avoid nephrotoxins/NSAIDs/ iodinated contrast (unless needed emergently) Glycemic control Further work up/management as per primary team Thanks for allowing me to participate in care of your patient. Will follow patient with you. Please call if any Qs. had d/w team and daughter Dr Braun Marc Office: [phone] Chief Complaint; fall Reason for consult: Acute Kidney Injury HPI: Pt is a 88 M with hx of hypertension (years) essential thrombocythemia GERD CAD cervical radiculopathy presented with complaints of fall and had chronic odontoid fracture. Denies OTC/herbal meds or NSAIDs No recent iodinated contrast exposure. Noted obvious episodes of low BP (90s). renal consult for BELLO which was worsenning. baseline CKD with cr 1.3. pt/daughter not aware about kidney disease in past pt was in urine retention s/p rubio 1200 mL UOP 11/14/18 ROS: says feel much better Cardiovascular: No chest pain. Pulmonary: No shortness of breath Gastrointestinal: denies abdominal pain No nausea. No vomiting. Genitourinary: No pain while urinating. Denies blood in urine. denies symptoms of BPH earlier All other negative except as mentioned in HPI Physical Examination: General Appearance: Comfortable, in no acute respiratory distress, co-operative . Vitals reviewed and noted as below Head; Atraumatic, normocephalic ENT: no ulcers no thrush. Tongue is midline. Oropharynx: no rash or ulcers. EYES: Pupils are equal, round and reactive to light accommodation. Eye muscles and extraocular movement intact. Sclera is anicteric. Neck; supple no lymphadenopathy, no thyromegaly or bruit. CERVICAL COLLAR + Lungs: Normal respiratory rate/effort. Breath sounds bilateral equal and clear Heart: Increased rate. s1s2 normal. No rub or gallop. Extremities: no edema. No varicose veins Neurological: Patient is alert, awake and oriented to person, place and time. No focal deficit. Strength bilateral appropriate and equal Skin: Warm and dry. Normal turgor. No rash. Palpitation: Normal elasticity for age Abdomen: Abdomen is soft. Bowel sounds +. There is no abdominal tenderness, no guarding/rigidity no organomegaly Psych: normal insight and normal affect/mood MSK: no joint tenderness or swelling. Digits and nails normal, no deformity : kidney or bladder not palpable. has rubio. has suprapubic fullness Labs/imaging reviewed. Past medical history, past surgical history, family history, social history, allergy reviewed and noted as below Family hx: no hx of CKD. Rest non-contributory Objective - Vital Signs/Intake and Output Vital Signs (last 24 hours): Temp Pulse Resp BP Pulse Ox 97.8 F 82 18 130/74 97 11/17/18 06:00 11/17/18 06:00 11/17/18 06:00 11/17/18 06:00 11/17/18 06:00 Intake and Output: 11/17/18 11/17/18 06:59 18:59 Intake Total 780 Balance 780 - Medications Medications: Current Medications Acetaminophen (Tylenol 325mg Tab) 650 mg PO Q6H PRN PRN Reason: Fever >100.4 F Last Admin: 11/15/18 19:02 Dose: 650 mg Artificial Tears (Artificial Tears) 0 ml OU Q3 PRN PRN Reason: Dry eyes Aspirin (Aspirin Chewable) 81 mg PO DAILY [facility] Last Admin: 11/17/18 10:03 Dose: 81 mg Atorvastatin Calcium (Lipitor) 20 mg PO DAILY [facility] Last Admin: 11/17/18 10:02 Dose: 20 mg Cyclobenzaprine HCl (Flexeril) 5 mg PO Q8 PRN PRN Reason: Muscle spasm Last Admin: 11/17/18 05:32 Dose: 5 mg Docusate Sodium (Colace) 100 mg PO BID [facility] Last Admin: 11/17/18 10:02 Dose: 100 mg Folic Acid (Folic Acid) 1 mg PO DAILY [facility] Last Admin: 11/17/18 10:02 Dose: 1 mg Hydroxyurea (Hydrea) 500 mg PO DAILY [facility] Last Admin: 11/16/18 16:11 Dose: 500 mg Ceftriaxone Sodium (Rocephin 1 Gram Ivpb) 1 gm in 100 mls @ 100 mls/hr IVPB DAILY [facility]; Protocol Last Admin: 11/17/18 10:11 Dose: 100 mls/hr Lidocaine (Lidoderm) 1 ea TD DAILY [facility] Last Admin: 11/17/18 10:14 Dose: 1 ea Pantoprazole Sodium (Protonix Ec Tab) 40 mg PO DAILY [facility] Last Admin: 11/17/18 10:10 Dose: 40 mg Quetiapine Fumarate (Seroquel) 12.5 mg PO HS [facility]; Protocol Last Admin: 11/16/18 21:36 Dose: 12.5 mg Tamsulosin HCl (Flomax) 0.4 mg PO DAILY [facility] Last Admin: 11/17/18 10:10 Dose: 0.4 mg Tramadol HCl (Ultram) 50 mg PO TID [facility] Last Admin: 11/17/18 10:09 Dose: 50 mg Zolpidem Tartrate (Ambien) 5 mg PO HS PRN; Protocol PRN Reason: Insomnia Last Admin: 11/15/18 21:53 Dose: 5 mg - Labs Labs: 11/17/18 06:45 11/17/18 06:45 PT 15.5 SECONDS (9.4-12.5) H 11/13/18 15:30 INR 1.40 11/13/18 15:30 APTT 31.8 Seconds (26.9-38.3) 11/13/18 15:30
--- NOTE | 2018-11-17 14:41 | CP.PCM.PN ---
Subjective - Date & Time of Evaluation Date of Evaluation: 11/17/18 Time of Evaluation: 14:40 - Subjective Subjective: PGY-2 heme/onc progress note for Dr Pratt. Patient with neck collar. C/o pain with movement. Did not offer any other complaints. Daughter at bedside - Dr Pratt had long discussion with patient and daughter. Objective - Vital Signs/Intake and Output Vital Signs (last 24 hours): Temp Pulse Resp BP Pulse Ox 97.8 F 82 18 130/74 97 11/17/18 06:00 11/17/18 06:00 11/17/18 06:00 11/17/18 06:00 11/17/18 06:00 Intake and Output: 11/17/18 11/17/18 06:59 18:59 Intake Total 780 Balance 780 - Medications Medications: Current Medications Acetaminophen (Tylenol 325mg Tab) 650 mg PO Q6H PRN PRN Reason: Fever >100.4 F Last Admin: 11/15/18 19:02 Dose: 650 mg Artificial Tears (Artificial Tears) 0 ml OU Q3 PRN PRN Reason: Dry eyes Aspirin (Aspirin Chewable) 81 mg PO DAILY [facility] Last Admin: 11/17/18 10:03 Dose: 81 mg Atorvastatin Calcium (Lipitor) 20 mg PO DAILY [facility] Last Admin: 11/17/18 10:02 Dose: 20 mg Cyclobenzaprine HCl (Flexeril) 5 mg PO Q8 PRN PRN Reason: Muscle spasm Last Admin: 11/17/18 05:32 Dose: 5 mg Docusate Sodium (Colace) 100 mg PO BID [facility] Last Admin: 11/17/18 10:02 Dose: 100 mg Folic Acid (Folic Acid) 1 mg PO DAILY [facility] Last Admin: 11/17/18 10:02 Dose: 1 mg Hydroxyurea (Hydrea) 500 mg PO DAILY [facility] Last Admin: 11/16/18 16:11 Dose: 500 mg Ceftriaxone Sodium (Rocephin 1 Gram Ivpb) 1 gm in 100 mls @ 100 mls/hr IVPB DAILY [facility]; Protocol Last Admin: 11/17/18 10:11 Dose: 100 mls/hr Lidocaine (Lidoderm) 1 ea TD DAILY [facility] Last Admin: 11/17/18 10:14 Dose: 1 ea Pantoprazole Sodium (Protonix Ec Tab) 40 mg PO DAILY [facility] Last Admin: 11/17/18 10:10 Dose: 40 mg Quetiapine Fumarate (Seroquel) 12.5 mg PO HS [facility]; Protocol Last Admin: 11/16/18 21:36 Dose: 12.5 mg Tamsulosin HCl (Flomax) 0.4 mg PO DAILY [facility] Last Admin: 11/17/18 10:10 Dose: 0.4 mg Tramadol HCl (Ultram) 50 mg PO TID [facility] Last Admin: 11/17/18 13:10 Dose: 50 mg Zolpidem Tartrate (Ambien) 5 mg PO HS PRN; Protocol PRN Reason: Insomnia Last Admin: 11/15/18 21:53 Dose: 5 mg - Labs Labs: 11/17/18 06:45 11/17/18 06:45 PT 15.5 SECONDS (9.4-12.5) H 11/13/18 15:30 INR 1.40 11/13/18 15:30 APTT 31.8 Seconds (26.9-38.3) 11/13/18 15:30 - Additional Findings Additional findings: - Constitutional Appears: Non-toxic, No Acute Distress - Head Exam Head Exam: limited range of motion 2/2 pain - with neck collar - ENT Exam ENT Exam: Mucous Membranes Moist, Normal Oropharynx - Neck Exam Neck exam: Negative for: Lymphadenopathy, Meningismus - Respiratory Exam Respiratory Exam: Decreased Breath Sounds. absent: Rales, Rhonchi - Cardiovascular Exam Cardiovascular Exam: +S1, +S2 - GI/Abdominal Exam GI & Abdominal Exam: Soft. absent: Tenderness Assessment and Plan - Assessment and Plan (Free Text) Plan: Mr Culver is a 88 year old male with a PMHx of HTN, HLD, CAD, cervical radiculopathy, GERD, and essential thrombocythemia. We have been consulted for his history of essential thrombocythemia for which he takes folic acid 1mg po qd and hydroxyurea 500mg po qd. He presented s/p mechanical fall with resultant head and shoulder trauma: Essential Thrombocytemia -diagnosed many years ago -platelet level normal -continue folic acid 1mg po qd -continue hydroxyurea 500mg po qd Seen and discussed with Dr Pratt
[2018-11-17 22:15] VITALS: RESP 20
[2018-11-18 05:30] LABS: URINE BILIRUBIN NEGATIVE (NEGATIVE); URINE BLOOD TRACE-INTACT (NEGATIVE); URINE GLUCOSE (UA) NEGATIVE (NEGATIVE); URINE LEUKOCYTE ESTERASE NEGATIVE Leu/uL (NEGATIVE); URINE PROTEIN TRACE mg/dL (<30 mg/dL); URINE UROBILINOGEN 0.2 E.U./dL (<1 E.U./dL)
[2018-11-18 05:33] LABS: URINE APPEARANCE CLEAR (CLEAR); URINE COLOR YELLOW (YELLOW)
[2018-11-18 05:54] LABS: URINE EPITHELIAL CELLS 0 - 2 /hpf (0-5); URINE RBC 0 - 2 /hpf (0-2); URINE WBC 0 - 2 /hpf (0-6)
[2018-11-18 05:55] LABS: URINE BACTERIA FEW /hpf
[2018-11-18 06:55] LABS: HEMOGLOBIN 11.6 g/dL (14.0-18.0); MEAN CELL VOLUME 106.5 fl (80.0-105.0); MEAN CORPUSCULAR HEMOGLOBIN 34.4 pg (25.0-35.0); MEAN CORPUSCULAR HGB CONC 32.3 g/dl (31.0-37.0); MEAN PLATELET VOLUME 9.1 fl (7.0-11.0); RBC 3.37 10^6/uL (3.5-6.1); RED CELL DISTRIBUTION WIDTH 12.3 % (11.5-14.5); WHITE BLOOD COUNT 9.9 10^3/uL (4.5-11.0)
[2018-11-18 07:12] LABS: BLOOD UREA NITROGEN 28 mg/dL (7-21); CALCIUM 9.1 mg/dL (8.4-10.5); GFR NON-AFRICAN AMERICAN > 60
[2018-11-18] MEDS: Lidocaine 5% Patch TD SCH (10:12)
[2018-11-18] MEDS: Pantoprazole 40 mg EC Tab PO SCH (10:14)
[2018-11-18] MEDS: cefTRIAXone 1 gm 1 GM/100 ML BAG IVPB SCH (10:14)
--- NOTE | 2018-11-18 13:37 | PN ---
SUBJECTIVE: The patient was seen and examined at bedside on the general medical holm. No acute events overnight. He remains afebrile and hemodynamically stable. The patient was failed his spontaneous voiding trial yesterday after removing his Sousa catheter with bladder scan revealing a residual volume of 500 mL necessitating straight cath on two occasions. He was also evaluated by PT and recommendations were made for acute rehab. Otherwise he feels well and offers no complaints. OBJECTIVE VITAL SIGNS: Temperature 97.8, pulse 90, blood pressure 140/78, respiratory rate 20, oxygen saturation 97% on room air. GENERAL: No apparent distress. HEENT: PERRL, EOMI. No scleral icterus. No conjunctival pallor. NECK: Soft C-spine collar in place. LUNGS: Clear to auscultation. CARDIOVASCULAR: Regular rate and rhythm. Normal S1 and S2. Grade II/ murmur to LLSB. ABDOMEN: Normoactive bowel sounds, soft, nontender, nondistended. EXTREMITIES: No edema. NEUROLOGIC: Awake, alert and oriented x 3. No focal motor deficits. LABORATORY DATA: WBC 9.9, hemoglobin 11.6, hematocrit 36, platelets 341. Sodium 136, potassium 3.9, chloride 103, bicarb 27, BUN 28, creatinine 1.1, glucose 119. ASSESSMENT: The patient is an 88-year-old man with multiple medical comorbidities including cervical radiculopathy who was admitted for management of type 2 odontoid fracture and intractable pain s/p mechanical fall and whose hospital course was complicated by development of BELLO and SIRS syndrome. PLAN 1. SIRS syndrome, consider etiology secondary to genitourinary source, resolving. The patient is on Ceftriaxone 1 g IV daily and is scheduled to complete a 7 day course (today is day #3 of 7). Continue Tylenol 650 mg p.o. q. 6 hours p.r.n. fever. 2. BELLO, etiology secondary to obstructive uropathy, resolved. Input from Dr. Tran noted. The patient remains on Flomax 0.4 mg p.o. daily. Unfortunately he failed a spontaneous voiding trial yesterday. We will reinsert the Sousa catheter and consult Dr. Blount of Urology. Continue to monitor strict I&O's. 3. Type 2 odontoid fracture. Input from Dr. Christensen noted and no need for acute neurosurgical intervention. Continue with soft C-spine collar. Continue Tramadol and Flexeril. PT evaluation noted and recommendations were made for acute rehab. 4. Hypertension. BP stable off antihypertensives. 5. Hyperlipidemia. Continue Lipitor 20 mg p.o. daily. 6. CAD. Continue Aspirin 81 mg p.o. daily and Lipitor 20 mg p.o. daily. 7. Cervical radiculopathy. Continue with care as above. 8. GERD. Continue Protonix 40 mg p.o. daily. 9. Essential thrombocythemia. Continue Folic acid 1 mg p.o. daily and Hydroxyurea 500 mg p.o. daily. 10. Prophylaxis. Continue Protonix for GI prophylaxis and SCDs for DVT prophylaxis. CODE STATUS: Full code. Claude Rayo MD MTDD
--- NOTE | 2018-11-18 16:08 | CP.PCM.PN ---
Subjective - Date & Time of Evaluation Date of Evaluation: 11/18/18 Time of Evaluation: 16:07 - Subjective Subjective: Nephrology Consultation Note: Assessment: Stable Acute Kidney Injury (N17.9) likely due to urine retention Hypertensive Chronic Kidney Disease (I12.9) Chronic Kidney Disease (N18.3) Stage 3 with ? 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 BELLO improved well Hypertension control with meds as ordered. Maintain hemodynamics stable. Avoid hypotension. Patient not on ACEI/ARB due to recent BELLO Monitor Input/Output, daily weights and renal function with basic metabolic panel urology eval. agree with flomax pt stable from renal perspective Dose meds/antibiotics for improved GFR. Glycemic control Further work up/management as per primary team Thanks for allowing me to participate in care of your patient. Will follow patient with you. Please call if any Qs. had d/w team and daughter Dr Kade Tran Office: [phone] Chief Complaint; fall Reason for consult: Acute Kidney Injury HPI: Pt is a 88 M with hx of hypertension (years) essential thrombocythemia GERD CAD cervical radiculopathy presented with complaints of fall and had chronic odontoid fracture. Denies OTC/herbal meds or NSAIDs No recent iodinated contrast exposure. Noted obvious episodes of low BP (90s). renal consult for BELLO which was worsenning. baseline CKD with cr 1.3. pt/daughter not aware about kidney disease in past pt was in urine retention s/p rubio 1200 mL UOP 11/14/18 ROS: says feel much better. required rubio again Cardiovascular: No chest pain. Pulmonary: No shortness of breath Gastrointestinal: denies abdominal pain No nausea. No vomiting. Genitourinary: No pain while urinating. Denies blood in urine. denies symptoms o f BPH earlier All other negative except as mentioned in HPI Physical Examination: General Appearance: Comfortable, in no acute respiratory distress, co-operative . Vitals reviewed and noted as below Head; Atraumatic, normocephalic ENT: no ulcers no thrush. Tongue is midline. Oropharynx: no rash or ulcers. EYES: Pupils are equal, round and reactive to light accommodation. Eye muscles and extraocular movement intact. Sclera is anicteric. Neck; supple no lymphadenopathy, no thyromegaly or bruit. CERVICAL COLLAR + Lungs: Normal respiratory rate/effort. Breath sounds bilateral equal and clear Heart: Increased rate. s1s2 normal. No rub or gallop. Extremities: no edema. No varicose veins Neurological: Patient is alert, awake and oriented to person, place and time. No focal deficit. Strength bilateral appropriate and equal Skin: Warm and dry. Normal turgor. No rash. Palpitation: Normal elasticity for age Abdomen: Abdomen is soft. Bowel sounds +. There is no abdominal tenderness, no guarding/rigidity no organomegaly Psych: normal insight and normal affect/mood MSK: no joint tenderness or swelling. Digits and nails normal, no deformity : kidney or bladder not palpable. has rubio Labs/imaging reviewed. Past medical history, past surgical history, family history, social history, allergy reviewed and noted as below Family hx: no hx of CKD. Rest non-contributory Objective - Vital Signs/Intake and Output Vital Signs (last 24 hours): Temp Pulse Resp BP Pulse Ox 97.8 F 90 20 140/78 97 11/18/18 06:00 11/18/18 06:00 11/18/18 06:00 11/18/18 06:00 11/18/18 06:00 Intake and Output: 11/18/18 11/18/18 06:59 18:59 Intake Total 420 Output Total 500 Balance -80 - Medications Medications: Current Medications Acetaminophen (Tylenol 325mg Tab) 650 mg PO Q6H PRN PRN Reason: Fever >100.4 F Last Admin: 11/15/18 19:02 Dose: 650 mg Artificial Tears (Artificial Tears) 0 ml OU Q3 PRN PRN Reason: Dry eyes Aspirin (Aspirin Chewable) 81 mg PO DAILY [facility] Last Admin: 11/18/18 10:13 Dose: 81 mg Atorvastatin Calcium (Lipitor) 20 mg PO DAILY [facility] Last Admin: 11/18/18 10:14 Dose: 20 mg Cyclobenzaprine HCl (Flexeril) 5 mg PO Q8 PRN PRN Reason: Muscle spasm Last Admin: 11/17/18 22:11 Dose: 5 mg Docusate Sodium (Colace) 100 mg PO BID [facility] Last Admin: 11/18/18 10:14 Dose: 100 mg Folic Acid (Folic Acid) 1 mg PO DAILY [facility] Last Admin: 11/18/18 10:14 Dose: 1 mg Hydroxyurea (Hydrea) 500 mg PO DAILY [facility] Last Admin: 11/18/18 10:25 Dose: 500 mg Ceftriaxone Sodium (Rocephin 1 Gram Ivpb) 1 gm in 100 mls @ 100 mls/hr IVPB DAILY [facility]; Protocol Last Admin: 11/18/18 10:14 Dose: 100 mls/hr Lidocaine (Lidoderm) 1 ea TD DAILY [facility] Last Admin: 11/18/18 10:12 Dose: 1 ea Pantoprazole Sodium (Protonix Ec Tab) 40 mg PO DAILY [facility] Last Admin: 11/18/18 10:14 Dose: 40 mg Quetiapine Fumarate (Seroquel) 12.5 mg PO HS [facility]; Protocol Last Admin: 11/17/18 22:11 Dose: 12.5 mg Tamsulosin HCl (Flomax) 0.4 mg PO DAILY [facility] Last Admin: 11/18/18 10:14 Dose: 0.4 mg Tramadol HCl (Ultram) 50 mg PO TID [facility] Last Admin: 11/18/18 14:17 Dose: 50 mg Zolpidem Tartrate (Ambien) 5 mg PO HS PRN; Protocol PRN Reason: Insomnia Last Admin: 11/18/18 00:06 Dose: 5 mg - Labs Labs: 11/18/18 06:34 11/18/18 06:34 PT 15.5 SECONDS (9.4-12.5) H 11/13/18 15:30 INR 1.40 11/13/18 15:30 APTT 31.8 Seconds (26.9-38.3) 11/13/18 15:30
--- NOTE | 2018-11-19 00:04 | CON ---
DATE: 11/18/2018 CHIEF COMPLAINT: Urinary retention. HISTORY OF PRESENT ILLNESS: This is an 88-year-old male with past medical history of hypertension and cervical radiculopathy, who presented after a fall with head and shoulder trauma. The patient reports he did not pass out, however, he fell injuring his head and shoulder. He was able to bear the pain initially, but then it became worsened. It was no longer responsive to [id number] analgesics and he presented to the ED for evaluation. He was in moderate distress secondary to pain. He had a decreased range of motion in his neck. A CT scan of the C-spine demonstrated an odontoid fracture and he was admitted for pain relief and management. PAST MEDICAL HISTORY: Significant for hyperlipidemia, reflux, thrombocythemia, and coronary artery disease. The patient reports no significant urologic history, however, he was found to have a large postvoid residual and was straight catheterized a few times with volumes of about 700 mL each time. Spoke to the nurses today and told them to leave a Sousa catheter if the patient was still having trouble. He has been on Flomax. He was unable to void and a Sousa catheter was then placed again with about 700 mL in the patient's bladder. He reports prior to this, he had been voiding without difficulty at home, although he did have mild frequency and nocturia one to two times per night. Past medical history as per the HPI, also hyperlipidemia, reflux, thrombocythemia, and coronary artery disease. MEDICATIONS: Medications at home included aspirin, Lipitor, enalapril, omeprazole, folic acid, hydroxyurea, and Neurontin. Currently Ambien as needed, Colace, Flexeril, Flomax, Lidoderm patch, Lipitor, Protonix, Rocephin, Seroquel, Tylenol, and Ultram. ALLERGIES: NO KNOWN DRUG ALLERGIES. FAMILY HISTORY: Noncontributory for this admission. SOCIAL HISTORY: The patient denies smoking or ETOH use. REVIEW OF SYSTEMS: Positive for head and neck pain, positive for difficulty ambulating, positive for urinary retention, positive for weakness and pain in his lower extremities, positive for occasional constipation. Other systems are negative. PHYSICAL EXAMINATION: GENERAL: The patient is seen in his bed at [facility]. He is awake and alert, in no acute distress. VITAL SIGNS: He is afebrile with a temp of 97.8, pulse of 90, BP 140/78, respirations 20. NECK: He is wearing a neck brace currently. CHEST: Reveals a normal inspiratory effort. CARDIAC: Positive S1, S2. There is no peripheral edema. ABDOMEN: The abdomen is soft, nontender, nondistended. There is no hepatosplenomegaly or costovertebral angle tenderness. : Phallus is normal. There is a Sousa catheter in place draining clear colored urine. Scrotum is normal. Testes bilaterally descended, nontender, no masses. Epididymides are normal. LABORATORY DATA: WBC count was elevated, but now down to 9.9; hemoglobin 11.6. Creatinine had been elevated, 2, now down to 1.1 with a GFR of greater than 60. Urinalysis from today showed 0 to 2 rbc's, 0 to 2 wbc's, trace protein, nitrites negative. No current urine culture or microbiology specimens are present. On radiologic exam, the patient had a CT scan of the abdomen and pelvis from 11/14, which showed there were some infiltrative changes in the perinephric fat bilaterally, left greater than right. There is a hyperdense cyst arising from the anterior cortex of the upper pole of the left kidney, 6 x 6 cm. There are several additional cysts in the mid pole of left kidney. There is a calcification in the upper mid pole, which could be vascular or a nonobstructing calculus, small cyst in the mid pole of the right kidney and another slightly larger cyst in the posterior medial lower pole of the left kidney. The bladder is collapsed around an unclamped Sousa catheter. IMPRESSION AND PLAN: This is an 88-year-old male who sustained a fall and a neck fracture. Urologically, the patient appears to be having urinary retention, which could be from pain medication, it could be neurologic from the neck fracture and pain from acute deconditioning. He reports voiding without difficulty prior to admission. As the patient did not void well after the initial Sousa catheter was removed, Sousa catheter has now been replaced. The patient is going to rehab. Urologically, the plan will be to continue the patient on Flomax, continue the indwelling Sousa catheter. After one week of rehab, I would recommend Sousa be removed for a voiding trial and a postvoid residual will need to be checked. When the patient's condition has improved, he should follow up with me in the office to check a voiding residual or if he is unable to void, we will need to change his Sousa catheter and discuss further evaluation for urinary retention. This is likely acute urinary retention given the neck fracture and pain medications. The patient is planning to go to rehab and I would be okay with him being discharged to rehab with an indwelling Sousa catheter. Narinder Blount MD
[2018-11-19 07:10] LABS: HEMOGLOBIN 12.4 g/dL (14.0-18.0); MEAN CELL VOLUME 105.6 fl (80.0-105.0); MEAN CORPUSCULAR HEMOGLOBIN 34.6 pg (25.0-35.0); MEAN CORPUSCULAR HGB CONC 32.8 g/dl (31.0-37.0); MEAN PLATELET VOLUME 9.3 fl (7.0-11.0); RBC 3.58 10^6/uL (3.5-6.1); RED CELL DISTRIBUTION WIDTH 12.4 % (11.5-14.5); WHITE BLOOD COUNT 10.9 10^3/uL (4.5-11.0)
[2018-11-19 07:21] LABS: BLOOD UREA NITROGEN 29 mg/dL (7-21); CALCIUM 9.3 mg/dL (8.4-10.5); GFR NON-AFRICAN AMERICAN > 60
[2018-11-19 08:31] VITALS: BP 126/80; PULSE 98; TEMP 97.8; O2SAT 97
[2018-11-19] MEDS: Pantoprazole 40 mg EC Tab PO SCH (09:53)
[2018-11-19] MEDS: Lidocaine 5% Patch TD SCH (09:54)
[2018-11-19] MEDS ORDERED: Cefpodoxime (Vantin) 200 mg Tab PO SCH (10:00)
--- NOTE | 2018-11-19 10:43 | PN ---
SUBJECTIVE: The patient was seen and examined at bedside on the general medical [facility]. No acute events overnight. He remains afebrile, hemodynamically stable and is pending transfer to subacute rehab. OBJECTIVE: VITAL SIGNS: Temperature 97.8, pulse 98, blood pressure 126/80, respiratory rate 20 and oxygen saturation 97% on room air. GENERAL: No apparent distress. HEENT: PERRL, EOMI. No scleral icterus. No conjunctival pallor. NECK: Soft C-spine collar in place. LUNGS: Clear to auscultation. CARDIOVASCULAR: Regular rate and rhythm. Normal S1 and S2. Grade II/ murmur to LLSB. ABDOMEN: Normoactive bowel sounds, soft, nontender and nondistended. GENITOURINARY: Sousa catheter in place draining clear, yellow urine. EXTREMITIES: No edema. NEUROLOGIC: Awake, alert and oriented x 3. No focal motor deficits. LABORATORY DATA: WBC 10.9, hemoglobin 12.4, hematocrit 38 and platelets 401. Chemistry reviewed and unremarkable. Urine culture negative. ASSESSMENT: The patient is an 88-year-old man with multiple medical comorbidities including cervical radiculopathy who was admitted s/p mechanical fall for management of type 2 odontoid fracture and intractable neck pain whose hospital course was complicated by development of BELLO and SIRS syndrome. PLAN: 1. SIRS syndrome, etiology secondary to genitourinary source, resolved. The patient remains on Cefpodoxime 200 mg p.o. q.12 hours and is scheduled to complete a 7 day course (today is day #4 of 7). 2. BELLO, etiology secondary to obstructive uropathy, resolved. Input from Dr. Tran noted. Input from Dr. Blount noted and recommendations have made to continue Flomax 0.4 mg p.o. daily and maintain the Sousa catheter in place pending outpatient followup. 3. Type 2 odontoid fracture. Input from Dr. Christensen noted and no need for acute neurosurgical intervention. Continue with soft C-spine collar. Continue Tramadol and Flexeril. 4. Hypertension. Blood pressure stable off antihypertensives. 5. Hyperlipidemia. Continue Lipitor 20 mg p.o. daily. 6. CAD. Continue Aspirin 81 mg p.o. daily and Lipitor 20 mg p.o. daily. 7. Cervical radiculopathy. Continue with care as above. 8. GERD. Continue Protonix 40 mg p.o. daily. 9. Essential thrombocythemia. Continue Folic acid 1 mg p.o. daily and Hydroxyurea 500 mg p.o. daily. 10. Prophylaxis. Continue Protonix for GI prophylaxis and SCDs for DVT prophylaxis. CODE STATUS: Full code. Claude Rayo MD MTDD
--- NOTE | 2018-11-19 13:44 | CP.PCM.PN ---
Subjective - Date & Time of Evaluation Date of Evaluation: 11/19/18 Time of Evaluation: 13:43 - Subjective Subjective: PGY-2 heme/onc progress note for Dr Pratt. Patient with neck collar. C/o pain with movement. Did not offer any other complaints. Objective - Vital Signs/Intake and Output Vital Signs (last 24 hours): Temp Pulse Resp BP Pulse Ox 97.8 F 98 H 20 126/80 97 11/19/18 07:00 11/19/18 07:00 11/19/18 07:00 11/19/18 07:00 11/19/18 07:00 Intake and Output: 11/19/18 11/19/18 06:59 18:59 Intake Total 420 Output Total 900 Balance -480 - Labs Labs: 11/19/18 06:50 11/19/18 06:50 PT 15.5 SECONDS (9.4-12.5) H 11/13/18 15:30 INR 1.40 11/13/18 15:30 APTT 31.8 Seconds (26.9-38.3) 11/13/18 15:30 - Additional Findings Additional findings: - Constitutional Appears: Non-toxic, No Acute Distress - Head Exam Head Exam: limited range of motion 2/2 pain - with neck collar - ENT Exam ENT Exam: Mucous Membranes Moist, Normal Oropharynx - Neck Exam Neck exam: Negative for: Lymphadenopathy, Meningismus - Respiratory Exam Respiratory Exam: Decreased Breath Sounds. absent: Rales, Rhonchi - Cardiovascular Exam Cardiovascular Exam: +S1, +S2 - GI/Abdominal Exam GI & Abdominal Exam: Soft. absent: Tenderness Assessment and Plan - Assessment and Plan (Free Text) Plan: Mr Culver is a 88 year old male with a PMHx of HTN, HLD, CAD, cervical radiculopathy, GERD, and essential thrombocythemia. We have been consulted for his history of essential thrombocythemia for which he takes folic acid 1mg po qd and hydroxyurea 500mg po qd. He presented s/p mechanical fall with resultant head and shoulder trauma: Essential Thrombocytemia -diagnosed many years ago -platelet level normal -continue folic acid 1mg po qd -continue hydroxyurea 500mg po qd Seen and discussed with Dr Pratt
== END 2018-11-19 12:41 | DRG 552 ==
LOC: ED 03:24 → ERH 06:56 → 5RNO 08:44 → OBSVTOIN 11-12 07:50
PROVIDERS: ADMIT Student in an Organized Health Care Education/Training Program; ATTEND Student in an Organized Health Care Education/Training Program
PROC: 0T9B70Z Drainage of Bladder with Drainage Device, Via Natural or Artificial Opening (ICD-10-PCS; principal; 2018-11-14)
DX: S12.110A Anterior displaced Type II dens fracture, initial encounter for closed fracture (principal); M62.82 Rhabdomyolysis; N17.9 Acute kidney failure, unspecified; R65.10 Systemic inflammatory response syndrome (SIRS) of non-infectious origin without acute organ dysfunction; N13.9 Obstructive and reflux uropathy, unspecified; R33.9 Retention of urine, unspecified; D47.3 Essential (hemorrhagic) thrombocythemia; I12.9 Hypertensive chronic kidney disease with stage 1 through stage 4 chronic kidney disease, or unspecified chronic kidney disease; N18.3 Chronic kidney disease, stage 3 (moderate); M54.12 Radiculopathy, cervical region; K21.9 Gastro-esophageal reflux disease without esophagitis; H04.123 Dry eye syndrome of bilateral lacrimal glands; E78.5 Hyperlipidemia, unspecified; I25.10 Atherosclerotic heart disease of native coronary artery without angina pectoris; W18.30XA Fall on same level, unspecified, initial encounter; Z79.82 Long term (current) use of aspirin; Z79.899 Other long term (current) drug therapy

== ENCOUNTER 2018-11-21 21:42 | Emergency (ER) | payer MEDICARE ==
[2018-11-21 21:45] VITALS: BMI 24.4
[2018-11-21 21:53] VITALS: TEMP 98.1
--- NOTE | 2018-11-21 22:15 | ED PDOC ---
Arrival/HPI - General Chief Complaint: Male Genitourinary Time Seen by Provider: 11/21/18 21:43 Historian: Patient - History of Present Illness Narrative History of Present Illness (Text): 11/21/18 22:14 Jonah Culver is an 88 year old male, whose past medical history includes hypertension, cervical radiculopathy, GERD, thrombocythemia, and CAD, who presents to the emergency department sent from [facility] complaining of urinary retention. Patient states while at [facility] they attempted to remove his Rubio catheter but were unsuccessful. Patient now complaining of urinary retention and suprapubic discomfort. The patient denies any fever, chills, nausea, vomiting, diarrhea, back pain, headache, dizziness, or any other complaints. Symptom Onset: Gradual Symptom Course: Unchanged Activities at Onset: Light Context: Home Past Medical History - Provider Review Nursing Documentation Reviewed: Yes - Infectious Disease Hx of Infectious Diseases: None - Tetanus Immunization Tetanus Immunization: Unknown - Cardiac Hx Cardiac Disorders: Yes Hx Hypertension: Yes - Pulmonary Hx Respiratory Disorders: No Hx Asthma: No Hx Bronchitis: No Hx Chronic Obstructive Pulmonary Disease (COPD): No Hx Emphysema: No Hx Pneumonia: No Hx Respiratory Aspiration: No Hx Respiratory Tract Infection: No Hx Sleep Apnea: No Hx Tuberculosis: No - Neurological Hx Paralysis: No - HEENT Hx HEENT Disorder: Yes (eyeglasses) Hx Cataracts: Yes (b/l sx) - Renal Hx Renal Disorder: No - Endocrine/Metabolic Hx Endocrine Disorders: No - Hematological/Oncological Hx Blood Transfusions: No Hx Blood Transfusion Reaction: No - Integumentary Hx Dermatological Disorder: Yes Other/Comment: growth to r ear - Musculoskeletal/Rheumatological Hx Musculoskeletal Disorders: Yes - Gastrointestinal Hx Gastrointestinal Disorders: Yes Hx Diverticulitis: No (pt denies) Hx Gastroesophageal Reflux: Yes - Genitourinary/Gynecological Hx Genitourinary Disorders: No - Psychiatric Hx Emotional Abuse: No Hx Physical Abuse: No Hx Substance Use: No - Surgical History Hx Appendectomy: Yes Hx Cardiac Catheterization: Yes (08/02/2013 dr hawley) Hx Coronary Stent: No (pt denies) - Anesthesia Hx Anesthesia Reactions: No Hx Malignant Hyperthermia: No - Suicidal Assessment Feels Threatened In Home Enviroment: No Family/Social History - Physician Review Nursing Documentation Reviewed: Yes Family/Social History: Unknown Family HX Smoking Status: Never Smoked Hx Alcohol Use: No Hx Substance Use: No Hx Substance Use Treatment: No Allergies/Home Meds Allergies/Adverse Reactions: Allergies No Known Allergies Allergy (Verified 11/11/18 03:29) Review of Systems - Physician Review All systems were reviewed & negative as marked: Yes - Review of Systems Constitutional: Normal. absent: Fevers Eyes: Normal ENT: Normal Respiratory: Normal. absent: SOB, Cough Cardiovascular: Normal. absent: Chest Pain Gastrointestinal: Abdominal Pain (+abdominal fullness). absent: Diarrhea, Nausea, Vomiting Genitourinary Male: Urinary Output Changes (+urinary retention). absent: Dysuria, Frequency Musculoskeletal: Normal. absent: Back Pain, Neck Pain Skin: Normal. absent: Rash Neurological: Normal. absent: Headache, Dizziness Endocrine: Normal Hemo/Lymphatic: Normal Psychiatric: Normal Physical Exam Vital Signs Reviewed: Yes Vital Signs Temp Pulse Resp BP Pulse Ox 11/21/18 21:52 98.1 F 90 20 118/90 98 Temperature: Afebrile Blood Pressure: Normal Pulse: Regular Respiratory Rate: Normal Appearance: Positive for: Well-Appearing, Non-Toxic, Comfortable Pain Distress: None Mental Status: Positive for: Alert and Oriented X 3 - Systems Exam Head: Present: Atraumatic, Normocephalic Pupils: Present: PERRL Extroacular Muscles: Present: EOMI Conjunctiva: Present: Normal Mouth: Present: Moist Mucous Membranes Neck: Present: Normal Range of Motion Respiratory/Chest: Present: Clear to Auscultation, Good Air Exchange. No: Respiratory Distress, Accessory Muscle Use Cardiovascular: Present: Regular Rate and Rhythm, Normal S1, S2. No: Murmurs Abdomen: Present: Tenderness (Suprapubic discomfort). No: Distention, Peritoneal Signs Back: Present: Normal Inspection Upper Extremity: Present: Normal Inspection. No: Cyanosis, Edema Lower Extremity: Present: Normal Inspection. No: Edema Neurological: Present: GCS=15, CN II-XII Intact, Speech Normal Skin: Present: Warm, Dry, Normal Color. No: Rashes Psychiatric: Present: Alert, Oriented x 3, Normal Insight, Normal Concentration Medical Decision Making ED Course and Treatment: 11/21/18 22:14 Impression: 88 year old male complaining of urinary retention and suprapubic discomfort. Plan: -- Rubio catheter change -- Reassess and disposition Prior Visits: Notes and results from previous visits were reviewed. Progress Notes: 11/21/18 23:00 Unable to deflate balloon of catheter which appears lodged in the urethra. Case discussed with surgical garment fitter information technology teacher, who is aware and agrees to evaluate pt. 11/21/18 23:[address] Blount, pt's urologist, who is aware and agrees with plan. Recommends using a a guidewire to deflate Rubio catheter balloon. 11/22/18 00:00 Attempts at deflating the Rubio catheter balloon with guidewire were unsu ccessful. Spoke again with Dr. Blount, who will come in to evaluate pt. 11/22/18 02:[address] Blount in the emergency department.Agrees that will require further invasive urological procedure for removal.He removed the Rubio catheter bulb using urethral sound. Pt with positive urine output and relief.Patient to receive single dose of IV Rocephin prior to discharge - Scribe Statement The provider has reviewed the documentation as recorded by the Parris Frye Provider Scribe Attestation: All medical record entries made by the Scribe were at my direction and personally dictated by me. I have reviewed the chart and agree that the record accurately reflects my personal performance of the history, physical exam, medical decision making, and the department course for this patient. I have also personally directed, reviewed, and agree with the discharge instructions and disposition. Disposition/Present on Arrival - Present on Arrival Any Indicators Present on Arrival: No History of DVT/PE: No History of Uncontrolled Diabetes: No Urinary Catheter: No History of Decub. Ulcer: No History Surgical Site Infection Following: None - Disposition Have Diagnosis and Disposition been Completed?: Yes Diagnosis: Urinary retention, Obstructed Rubio catheter Disposition: TRANSF TO SNF Disposition Time: 02:39 Patient Plan: Discharge Condition: STABLE Additional Instructions: Maintain rubio catheter/leg bag/follow up with the urologist this week Referrals: Chris Rayo MD [Primary Care Provider] - Follow up with primary Forms: [employer] ([place])
[2018-11-22] MEDS ORDERED: Lidocaine PF 2% (5 ml) Inj (For Cardiac Arrhy) ONE (01:27)
[2018-11-22] MEDS ORDERED: cefTRIAXone 1 gm 1 GM/100 ML BAG IV STA (02:07)
[2018-11-22 06:29] VITALS: BP 114/67; PULSE 87; RESP 20; O2SAT 95
--- NOTE | 2018-11-22 08:23 | CON ---
DATE OF CONSULTATION: 11/22/2018 CHIEF COMPLAINT: Urinary retention and Sousa malfunction. HISTORY OF PRESENT ILLNESS: This is an 88-year-old patient who was seen recently in [facility] with recurrent urinary retention. He was discharged to a nursing facility with an indwelling Sousa catheter. The patient and family report that for some reason the Sousa catheter was removed and reinserted today. There was a problem and the Sousa catheter could not be placed. Attempts to remove the Sousa catheter were unsuccessful at the nursing facility and he was then transferred to the emergency room. It is unclear what happened in the emergency room. However, the valve and the Sousa catheter had been cut off; however, the Sousa still could not be removed. The patient was complaining of some pelvic pain and was distended. Multiple attempts by the ER to remove the Sousa catheter were unsuccessful and a urology consultation was requested. On arriving in the ER, the patient was in no acute distress, although he did feel the urge to urinate. His abdomen was soft; however, his bladder was palpably distended. Sousa catheter was in place with the balloon palpable in his penile urethra. There was some induration and some blood noted around the urethral meatus. The patient had no fever or chills. The patient has a history of dementia. On exam, the urethra is somewhat tender and the Sousa catheter had been cut with the valve off. First, I attempted to pass a wire through the balloon port, was able to get the wire apparently all the way in, however the balloon still would not deflate. I attempted to retrograde, insert fluid into the balloon, which appeared somewhat successful; however, the fluid would not come out as well. Ultrasound unit was obtained, the patient's bladder was distended with urine, balloon appeared to have some fluid in it, but it was not fully distended. At this point, I was able to obtain urethral sounds, and using the smallest sound, I was able to puncture the balloon and Sousa catheter was then able to be removed. A new 18-[place] coude Sousa catheter was passed without difficulty and about 1 liter of clear urine was drained. The patient will receive a dose of IV antibiotics. He will be observed for the next few hours, and then if no problems with the Sousa catheter, he can return to the nursing facility with the Sousa catheter in place. Discussed this plan with the patient's family who are agreeable. Narinder Blount MD
== END 2018-11-22 07:50 ==
LOC: ED 21:42
DX: T83.091A Other mechanical complication of indwelling urethral catheter, initial encounter (principal); R33.9 Retention of urine, unspecified; I10 Essential (primary) hypertension; F03.90 Unspecified dementia, unspecified severity, without behavioral disturbance, psychotic disturbance, mood disturbance, and anxiety; I25.10 Atherosclerotic heart disease of native coronary artery without angina pectoris
CPT/HCPCS: 96374; 99285; J0696